=== PATIENT | female | born 1985 | race Caucasian/White ===

== ENCOUNTER 2020-07-04 12:58 | Inpatient (IN) | payer OTHER ==
--- NOTE | 2020-07-04 13:11 | BHS.RME ---
Substance Use & Tx History - Substance Use History Alcohol Substance amount: 1 gallon vodka Frequency of use: Daily Substance route: Oral Date of Last Use: 07/04/20 (30 mins ago, started age 9) Heroin Substance amount: 1 bags Frequency of use: Less than 3 times per week Substance route: Injection (ex: intravenous or skin popping) Date of Last Use: 07/03/20 (started age 13) Xanax Substance amount: 2mg - 5-6 tabs Frequency of use: Daily Substance route: Oral Date of Last Use: 07/03/20 Nicotine Substance amount: 5 ciggs Frequency of use: Daily Substance route: Smoking Date of Last Use: 07/04/20 Physical/Psych/Mental Status - Behavior General Behavior: Decreased activity Eye Contact: Normal - Cooperativeness Cooperativeness: Cooperative - Thinking Thought Processes: Tight, Logical, Goal Directed - Physical Health Problems Is patient presently having any pain?: No Does patient presently have any injuries (include location): No Does patient currently have a fever: No Is patient : No CIWA Nausea/Vomitin-Mild Nausea/No Vomiting Muscle Tremors: 2 Anxiety: 2 Agitation: 2 Paroxysmal Sweats: 2 Orientation: 0-Oriented Tacttile Disturbances: 0-None Auditory Disturbances: 0-None Visual Disturbances: 0-None Headache: 1-Very Mild (not yet in withdrawals due to alcohol use prior and benzodiazepine use) CIWA-Ar Total Score: 10
[2020-07-04 13:35] VITALS: BMI 24.4
--- NOTE | 2020-07-04 14:11 | HP ---
CIWA Score Nausea/Vomitin-Mild Nausea/No Vomiting Muscle Tremors: 2 Anxiety: 2 Agitation: 2 Paroxysmal Sweats: 2 Orientation: 0-Oriented Tacttile Disturbances: 0-None Auditory Disturbances: 0-None Visual Disturbances: 0-None Headache: 1-Very Mild (not yet in withdrawals due to alcohol use prior and benzodiazepine use) CIWA-Ar Total Score: 10 - Admission Criteria OASAS Guidelines: Admission for Medically Managed Detox: Requires at least one of the followin. CIWA greater than 12 2. Seizures within the past 24 hours 3. Delirium tremens within the past 24 hours 4. Hallucinations within the past 24 hours 5. Acute intervention needed for co occurring medical disorder 6. Acute intervention needed for co occurring psychiatric disorder 7. Severe withdrawal that cannot be handled at a lower level of care (continued vomiting, continued diarrhea, abnormal vital signs) requiring intravenous medication and/or fluids 8. Admitting History and Physical - Admission Chief Complaint: Ms. Aguirre is a 35 yo woman who presents to [facility] requesting admission for alcohol and benzodiazepine use. History of Present Illness: Ms. Aguirre is a 35 yo woman who presents to [facility] requesting admission for alcohol and benzodiazepine use. She was last here and completed detox in 2014. PMH: HTN, Asthma PSH: splenectomy Psych: anxiety, PTSD, suicide attempt 3 years ago: cut wrist SOC: lives in the [place] Substance Use History Alcohol Substance amount: 1 gallon vodka Frequency of use: Daily Substance route: Oral Date of Last Use: 07/04/20 (30 mins ago, started age 9) First use age 9 y No alcohol withdrawal seizures? 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 yesterday, unclear Nicotine Substance amount: 5 ciggs Frequency of use: Daily Substance route: Smoking Date of Last Use: 07/04/20 Began age 11y Crack: last use yesterday, began use age 16y, 0-15 bags CAnnabis: few hits daily, last use today, started age 14y History Source: Patient Limitations to Obtaining History: No Limitations - Past Medical History ...LMP: 06/22/15 - Smoking History Smoking history: Current every day smoker Have you smoked in the past 12 months: Yes Aproximately how many cigarettes per day: 10 - Alcohol/Substance Use Hx Alcohol Use: Yes Admission ROS S - HPI Allergies/Adverse Reactions: Allergies Allergy/AdvReac Type Severity Reaction Status Date / Time chlorpromazine HCl Allergy Severe MUSCLE Verified 07/04/20 13:59 [From Thorazine] STIFFNESS haloperidol Allergy Severe MUSCLE Verified 07/04/20 13:59 STIFFNESS prochlorperazine edisylate Allergy Severe LOCK JAW Verified 07/04/20 13:59 [From Compazine] prochlorperazine maleate Allergy Severe LOCK JAW Verified 07/04/20 13:59 [From Compazine] trazodone Allergy Severe MUSCLE Verified 07/04/20 13:59 STIFFNESS Exam Limitations: No Limitations - Ebola screening Have you traveled outside of the country in the last 21 days: No Have you been sick,other than usual withdrawal symptoms: No Do you have a fever: No - Review of Systems Constitutional: No Symptoms Reported EENT: reports: Blurred Vision (has glasses with her, uses for distance) Respiratory: reports: No Symptoms reported Cardiac: reports: No Symptoms Reported GI: reports: Nausea, Vomiting (past few days, not today) : reports: Burning Musculoskeletal: reports: Back Pain Integumentary: reports: Other (swelling left dorsal hand) Endocrine: reports: No Symptoms Reported Hematology: reports: No Symptoms Reported Psychiatric: reports: Anxious Patient History - Patient Medical History Hx Anemia: No Hx Asthma: No Hx Chronic Obstructive Pulmonary Disease (COPD): No Hx Cancer: No Hx Cardiac Disorders: No Hx Congestive Heart Failure: No Hx Hypertension: No Hx Hypercholesterolemia: No Hx Pacemaker: No HX Cerebrovascular Accident: No Hx Seizures: Yes (4months ago) Hx Dementia: No Hx Diabetes: No Hx Gastrointestinal Disorders: No Hx Liver Disease: No Hx Genitourinary Disorders: No Hx Sexually Transmitted Disorders: No Hx Renal Disease (ESRD): No Hx Thyroid Disease: No Hx Human Immunodeficiency Virus (HIV): No (NEGATIVE 2 MONTHS AGO) Hx Hepatitis C: Yes Hx Depression: Yes Hx Suicide Attempt: No Hx Bipolar Disorder: Yes Hx Schizophrenia: No - Patient Surgical History Past Surgical History: Yes Hx Neurologic Surgery: No Hx Cataract Extraction: No Hx Cardiac Surgery: No Hx Lung Surgery: No Hx Breast Surgery: No Hx Breast Biopsy: No Hx Abdominal Surgery: No Hx Appendectomy: No Hx Cholecystectomy: No Hx Genitourinary Surgery: No Hx Section: Yes (11/03/14) Hx Orthopedic Surgery: No Anesthesia Reaction: No - PPD History Date: 12/10/14 Results: 0mm - Reproductive History Last Menstrual Period: 06/22/15 - Smoking Cessation Smoking history: Current every day smoker Have you smoked in the past 12 months: Yes Aproximately how many cigarettes per day: 5 Cigars Per Day: 0 Hx Chewing Tobacco Use: No Initiated information on smoking cessation: Yes 'Breaking Loose' booklet given: 07/04/20 Admission Physical Exam BHS - Vital Signs Vital Signs: Vital Signs - 24 hr 07/04/20 13:34 Temperature 97.3 F L Pulse Rate 89 Respiratory 17 Rate Blood Pressure 121/77 - Physical General Appearance: Yes: No Apparent Distress, Nourished, Anxious HEENTM: Yes: EOMI, Hearing grossly Normal, Normocephalic, Normal Voice Respiratory: Yes: Lungs Clear, No Respiratory Distress, No Accessory Muscle Use Neck: Yes: Within Normal Limits, Supple Breast: Yes: Breast Exam Deferred Cardiology: Yes: Regular Rhythm, Regular Rate Abdominal: Yes: Normal Bowel Sounds, Non Tender, Flat, Soft Genitourinary: Yes: Other (no vaginal discharge) Back: Yes: Normal Inspection Musculoskeletal: Yes: full range of Motion Extremities: Yes: Normal Inspection, Non-Tender Neurological: Yes: Normal Response Integumentary: Yes: Track Coates (multiple sites, feet, hand, right wrist, neck bilateral) - Diagnostic (1) Hepatitis C carrier Current Visit: No Status: Chronic Comment: 1. per pt, treated (2) Anxiety disorder Current Visit: Yes Status: Acute Qualifiers: Anxiety disorder type: generalized anxiety disorder Qualified Code(s): F41.1 - Generalized anxiety disorder Comment: 1. Psychiatry consult (3) Opioid dependence on agonist therapy Current Visit: No Status: Acute Comment: 1. Methadone 120 mg dialy, [facility], pending verification, pt states medicated today (4) Alcohol dependence with uncomplicated withdrawal Current Visit: No Status: Chronic Comment: 1. Admit to detox 2. Valium protocol as LFTs were elevated last admission 3. Routine labs 4. comfort medication (5) Nicotine dependence, uncomplicated Current Visit: No Status: Chronic Qualifiers: Nicotine product type: cigarettes Qualified Code(s): F17.210 - Nicotine dependence, cigarettes, uncomplicated Comment: 1. Nicotine replacement therapy (6) Sedative, hypnotic, or anxiolytic withdrawal Current Visit: Yes Status: Acute (7) Crack cocaine use Current Visit: No Status: Chronic (8) Marijuana dependence Current Visit: No Status: Acute Cleared for Admission S - Detox or Rehab [facility] Level of Care: Medically Managed Detox Regimen/Protocol: Valium Breathalyzer - Breathalyzer Breathalyzer: 0.130 Urine Drug Screen - Test Device Lot number: [id number] Expiration date: 01/17/22 - Control Is test valid?: Yes - Results Drug screen NEGATIVE: No Urine drug screen results: THC-Marijuana, PAPITO-Cocaine, FEN-Fentanyl, MOP- Opiates, MTD-Methadone, BZO-Benzodiazepines Inpatient Rehab Admission - Rehab Decision to Admit Inpatient rehab admission?: No
[2020-07-04] MEDS ORDERED: MAGNESIUM HYDROX 2400MG/30ML ORAL SUSPENSION 30 ML CUP PO PRN (14:23)
[2020-07-04] MEDS ORDERED: MAGNESIUM CITRATE 300 ML BOTTLE PO PRN (14:23)
[2020-07-04] MEDS ORDERED: MENTHOL/PHENOL 1 EACH UD MM PRN (14:23)
[2020-07-04] MEDS ORDERED: BISMUTH SUBSALICYLATE 262 MG/15 ML BTL PO PRN (14:23)
[2020-07-04] MEDS ORDERED: ALBUTEROL SO4 HFA INHALER IH PRN (14:23)
[2020-07-04] MEDS ORDERED: MAG HYDROX/AL HYDROX/SIMETH 30 ML UNIT-DOSE CUP PO PRN (14:23)
[2020-07-04] MEDS ORDERED: ACETAMINOPHEN 325 MG TABLET (FP) PO PRN ×2 (14:23)
[2020-07-04] MEDS ORDERED: IBUPROFEN 400 MG TABLET (FP) PO PRN (14:23)
[2020-07-04 18:21] LABS: HEMATOCRIT 37.2 % (32.4-45.2); HEMOGLOBIN 12.3 GM/dL (10.7-15.3); MCH 33.1 pg (25.7-33.7); MCHC 33.1 g/dl (32.0-36.0); MEAN CELL VOLUME 100.2 fl (80-96); MEAN PLT VOLUME 9.4 fl (7.5-11.1); PLATELET COUNT 389 K/MM3 (134-434); RBC 3.72 M/mm3 (3.60-5.2); RDW 14.8 % (11.6-15.6); WHITE BLOOD COUNT 6.7 K/mm3 (4.0-10.0)
[2020-07-04 18:31] LABS: BILIRUBIN,TOTAL 0.2 mg/dL (0.2-1); BLOOD UREA NITROGEN 11.1 mg/dL (7-18); CALCIUM 8.4 mg/dL (8.5-10.1); CREATININE 0.7 mg/dL (0.55-1.3); POTASSIUM 4.1 mmol/L (3.5-5.1); TOT PROT 7.1 g/dl (6.4-8.2)
[2020-07-04] MEDS: diazePAM 5 MG TABLET PO SCH ×2 (18:34→23:31)
[2020-07-04] MEDS: hydrOXYzine PAMOATE 25 MG CAPSULE (FP) PO SCH ×2 (18:34→23:32)
[2020-07-04] MEDS: ONDANSETRON *ODT* 4 MG TABLET SL PRN (18:37)
[2020-07-04] MEDS: MELATONIN 5 MG TABLETS PO SCH (23:32)
[2020-07-04] MEDS: THIAMINE HCL 100 MG TABLET (FP) PO SCH (23:32)
[2020-07-05] MEDS: hydrOXYzine PAMOATE 25 MG CAPSULE (FP) PO SCH (05:16)
[2020-07-05] MEDS: diazePAM 5 MG TABLET PO SCH ×4 (05:16→22:18)
[2020-07-05] MEDS: diazePAM 5 MG TABLET PO PRN ×2 (07:23→13:27)
[2020-07-05] MEDS: ONDANSETRON *ODT* 4 MG TABLET SL PRN (07:23)
[2020-07-05] MEDS ORDERED: METHADONE HCL 40 MG DISPERSABLE TABLET PO ONE (08:48)
[2020-07-05] MEDS ORDERED: hydrOXYzine PAMOATE 25 MG CAPSULE (FP) PO PRN (09:35)
[2020-07-05] MEDS: NICOTINE 7 MG/24 HOURS TOPICAL PATCH TD SCH (09:42)
[2020-07-05] MEDS: PRENATAL VITAMINS W/ FOLIC ACID TABLET (FP) PO SCH (10:39)
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
[2020-07-05] MEDS: PROMETHAZINE HCL 25 MG TABLET PO PRN ×3 (11:30→22:19)
--- NOTE | 2020-07-05 14:06 | EKG ---
Test Reason : Blood Pressure : / mmHG Vent. Rate : 083 BPM Atrial Rate : 083 BPM P-R Int : 152 ms QRS Dur : 092 ms QT Int : 398 ms P-R-T Axes : 067 064 047 degrees QTc Int : 467 ms NORMAL SINUS RHYTHM NORMAL ECG NO PREVIOUS ECGS AVAILABLE Confirmed by SARAH PADILLA MD ([id number]) on 07/05/2020 2:05:46 PM Referred By: Confirmed By:SARAH PADILLA MD
--- NOTE | 2020-07-05 14:42 | PN ---
S CIWA - CIWA Score Nausea/Vomitin-Mild Nausea/No Vomiting Muscle Tremors: 3 Anxiety: 2 Agitation: 3 Paroxysmal Sweats: 3 Orientation: 0-Oriented Tacttile Disturbances: 0-None Auditory Disturbances: 0-None Visual Disturbances: 0-None Headache: 0-None Present CIWA-Ar Total Score: 12 BHS Progress Note (SOAP) Subjective: shakes sweats restless nausea body aches interrupted sleep Objective: 07/05/20 14:41 Vital Signs Temperature 96.4 F L 07/05/20 13:04 Pulse Rate 65 07/05/20 13:04 Respiratory Rate 18 07/05/20 13:04 Blood Pressure 126/78 07/05/20 13:04 O2 Sat by Pulse Oximetry (%) 96 07/05/20 13:04 Laboratory Tests 07/04/20 07/04/20 07/04/20 13:50 13:50 13:50 WBC 6.7 RBC 3.72 Hgb 12.3 Hct 37.2 D MCV 100.2 H MCH 33.1 D MCHC 33.1 RDW 14.8 Plt Count 389 D MPV 9.4 D Sodium 141 Potassium 4.1 Chloride 107 Carbon Dioxide 29 Anion Gap 5 L BUN 11.1 Creatinine 0.7 Est GFR (CKD-EPI)AfAm 131.02 Est GFR (CKD-EPI)NonAf 113.04 Random Glucose 103 Calcium 8.4 L Total Bilirubin 0.2 AST 70 H ALT 55 Alkaline Phosphatase 111 Total Protein 7.1 Albumin 3.0 L Syphilis Serology Reactive A* RPR Titer 07/04/20 13:50 WBC RBC Hgb Hct MCV MCH MCHC RDW Plt Count MPV Sodium Potassium Chloride Carbon Dioxide Anion Gap BUN Creatinine Est GFR (CKD-EPI)AfAm Est GFR (CKD-EPI)NonAf Random Glucose Calcium Total Bilirubin AST ALT Alkaline Phosphatase Total Protein Albumin Syphilis Serology RPR Titer Reactive 1:1 H D labs noted aaox3 ambulating no acute distress Assessment: 07/05/20 14:41 withdrawals Plan: continue detox increase fluids anti-emetic phenegran tab 25mg ordered.
[2020-07-05] MEDS: MELATONIN 5 MG TABLETS PO SCH (22:18)
[2020-07-05] MEDS: QUEtiapine FUMARATE 100 MG TABLET (FP) PO SCH (22:18)
[2020-07-05] MEDS: THIAMINE HCL 100 MG TABLET (FP) PO SCH (22:18)
[2020-07-05] MEDS: NICOTINE POLACRILEX 2 MG GUM BUC PRN (22:20)
[2020-07-06] MEDS: diazePAM 5 MG TABLET PO PRN ×3 (01:21→17:08)
[2020-07-06] MEDS: METHADONE HCL 40 MG DISPERSABLE TABLET PO SCH (05:42)
[2020-07-06] MEDS: diazePAM 5 MG TABLET PO SCH ×3 (05:44→21:55)
[2020-07-06] MEDS: PROMETHAZINE HCL 25 MG TABLET PO PRN ×4 (05:44→21:57)
[2020-07-06] MEDS: NICOTINE POLACRILEX 2 MG GUM BUC PRN ×3 (08:07→21:58)
[2020-07-06] MEDS: PRENATAL VITAMINS W/ FOLIC ACID TABLET (FP) PO SCH (10:13)
[2020-07-06] MEDS: PANTOPRAZOLE 40 MG TABLET PO SCH (10:13)
[2020-07-06] MEDS: NICOTINE 7 MG/24 HOURS TOPICAL PATCH TD SCH (10:13)
--- NOTE | 2020-07-06 15:15 | PN ---
[facility] CIWA - CIWA Score Nausea/Vomitin-Mild Nausea/No Vomiting Muscle Tremors: 3 Anxiety: 2 Agitation: 2 Paroxysmal Sweats: 2 Orientation: 0-Oriented Tacttile Disturbances: 0-None Auditory Disturbances: 0-None Visual Disturbances: 0-None Headache: 0-None Present CIWA-Ar Total Score: 10 S Progress Note (SOAP) Subjective: acid reflux sweats agitation interrupted sleep Objective: 07/06/20 15:13 Vital Signs Temperature 98.2 F 07/06/20 12:45 Pulse Rate 81 07/06/20 12:45 Respiratory Rate 18 07/06/20 12:45 Blood Pressure 123/56 L 07/06/20 12:45 O2 Sat by Pulse Oximetry (%) 95 07/06/20 12:45 Laboratory Tests 07/04/20 07/04/20 07/04/20 13:50 13:50 13:50 WBC 6.7 RBC 3.72 Hgb 12.3 Hct 37.2 D MCV 100.2 H MCH 33.1 D MCHC 33.1 RDW 14.8 Plt Count 389 D MPV 9.4 D Sodium 141 Potassium 4.1 Chloride 107 Carbon Dioxide 29 Anion Gap 5 L BUN 11.1 Creatinine 0.7 Est GFR (CKD-EPI)AfAm 131.02 Est GFR (CKD-EPI)NonAf 113.04 Random Glucose 103 Calcium 8.4 L Total Bilirubin 0.2 AST 70 H ALT 55 Alkaline Phosphatase 111 Total Protein 7.1 Albumin 3.0 L Syphilis Serology Reactive A* RPR Titer COVID-19 (DARELL) 07/04/20 07/04/20 13:50 13:50 WBC RBC Hgb Hct MCV MCH MCHC RDW Plt Count MPV Sodium Potassium Chloride Carbon Dioxide Anion Gap BUN Creatinine Est GFR (CKD-EPI)AfAm Est GFR (CKD-EPI)NonAf Random Glucose Calcium Total Bilirubin AST ALT Alkaline Phosphatase Total Protein Albumin Syphilis Serology RPR Titer Reactive 1:1 H D COVID-19 (DARELL) Not detected labs noted aaox3 ambulating no acute distress Assessment: 07/06/20 15:14 withdrawals Plan: continue detox protonix 40mg ordered increase fluids
[2020-07-06] MEDS: QUEtiapine FUMARATE 100 MG TABLET (FP) PO SCH (21:55)
[2020-07-06] MEDS: MELATONIN 5 MG TABLETS PO SCH (21:55)
[2020-07-06] MEDS: THIAMINE HCL 100 MG TABLET (FP) PO SCH (21:55)
[2020-07-07] MEDS: diazePAM 5 MG TABLET PO PRN ×2 (02:51→10:08)
[2020-07-07] MEDS: diazePAM 5 MG TABLET PO SCH ×2 (06:47→19:28)
[2020-07-07] MEDS: METHADONE HCL 40 MG DISPERSABLE TABLET PO SCH (06:47)
[2020-07-07] MEDS: PROMETHAZINE HCL 25 MG TABLET PO PRN ×3 (07:57→16:44)
[2020-07-07] MEDS: NICOTINE POLACRILEX 2 MG GUM BUC PRN (07:59)
[2020-07-07] MEDS ORDERED: NICOTINE POLACRILEX 4 MG GUM BUC PRN (09:53)
[2020-07-07] MEDS ORDERED: NICOTINE 21 MG/24 HOURS TOPICAL PATCH TD SCH (10:00)
[2020-07-07] MEDS: PANTOPRAZOLE 40 MG TABLET PO SCH (10:08)
[2020-07-07] MEDS: METHOCARBAMOL 500 MG TABLET PO PRN ×2 (10:08→16:45)
[2020-07-07] MEDS: PRENATAL VITAMINS W/ FOLIC ACID TABLET (FP) PO SCH (10:09)
[2020-07-07] MEDS: hydrOXYzine PAMOATE 50 MG CAPSULE (FP) PO PRN ×3 (10:11→22:51)
--- NOTE | 2020-07-07 18:00 | PN ---
[facility] CIWA - CIWA Score Nausea/Vomitin-No Nausea/No Vomiting Muscle Tremors: None Anxiety: 4-Mod. Anxious/Guarded Agitation: 4-Moderately Restless Paroxysmal Sweats: 2 Orientation: 0-Oriented Tacttile Disturbances: 2-Mild Itch/Numbness/Burn Auditory Disturbances: 0-None Visual Disturbances: 0-None Headache: 0-None Present CIWA-Ar Total Score: 12 S Progress Note (SOAP) Subjective: Anxious, Restless, Sweating, Interrupted Sleep. Objective: Patient A & O X 3, Observed Ambulating on Detox Unit Unassisted. In No Acute Distress. 07/07/20 17:56 Vital Signs Temperature 97.5 F L 07/07/20 12:56 Pulse Rate 71 07/07/20 12:56 Respiratory Rate 19 07/07/20 12:56 Blood Pressure 124/68 07/07/20 12:56 O2 Sat by Pulse Oximetry (%) 100 07/07/20 12:56 Laboratory Tests 07/04/20 07/04/20 07/04/20 13:50 13:50 13:50 WBC 6.7 RBC 3.72 Hgb 12.3 Hct 37.2 D MCV 100.2 H MCH 33.1 D MCHC 33.1 RDW 14.8 Plt Count 389 D MPV 9.4 D Sodium 141 Potassium 4.1 Chloride 107 Carbon Dioxide 29 Anion Gap 5 L BUN 11.1 Creatinine 0.7 Est GFR (CKD-EPI)AfAm 131.02 Est GFR (CKD-EPI)NonAf 113.04 Random Glucose 103 Calcium 8.4 L Total Bilirubin 0.2 AST 70 H ALT 55 Alkaline Phosphatase 111 Total Protein 7.1 Albumin 3.0 L Syphilis Serology Reactive A* RPR Titer COVID-19 (DARELL) 07/04/20 07/04/20 13:50 13:50 WBC RBC Hgb Hct MCV MCH MCHC RDW Plt Count MPV Sodium Potassium Chloride Carbon Dioxide Anion Gap BUN Creatinine Est GFR (CKD-EPI)AfAm Est GFR (CKD-EPI)NonAf Random Glucose Calcium Total Bilirubin AST ALT Alkaline Phosphatase Total Protein Albumin Syphilis Serology RPR Titer Reactive 1:1 H D COVID-19 (DARELL) Not detected Lab Results Noted. Detox Admission RPR Result noted: Reactive A; Reactive 1:1. Patient reports that he completed treatment for Syphilis in the past. 07/07/20 17:58 Assessment: 07/07/20 17:57 WITHDRAWAL SYMPTOMS. ELEVATED AST LEVEL. REACTIVE RPR. 07/07/20 17:58 Plan: Continue Detox. Increase Daily Oral Water Intake. Patient scheduled for D/C from detox unit tomorrow pending pre-discharge medical evaluation by covering medical provider.
[2020-07-07] MEDS: QUEtiapine FUMARATE 100 MG TABLET (FP) PO SCH (22:51)
[2020-07-07] MEDS: MELATONIN 5 MG TABLETS PO SCH (22:52)
[2020-07-07] MEDS: THIAMINE HCL 100 MG TABLET (FP) PO SCH (22:52)
[2020-07-08] MEDS ORDERED: diazePAM 5 MG TABLET PO ONE (06:00)
[2020-07-08] MEDS: METHADONE HCL 40 MG DISPERSABLE TABLET PO SCH (06:32)
[2020-07-08] MEDS: PROMETHAZINE HCL 25 MG TABLET PO PRN (06:35)
[2020-07-08 08:27] VITALS: BP 115/78; PULSE 105; TEMP 98
--- NOTE | 2020-07-08 09:59 | DS ---
[facility] Detox Discharge Summary Admission Date: 07/04/20 Discharge Date: 07/08/20 - History Present History: Alcohol Dependence, Cannabis Dependence, Cocaine Dependence, Sedative Dependence, MMTP Additional Comments: Alert and oriented x3, in no acute respiratory distress. Full ROM, ambulatory in the unit without assistance. Skin warm to touch. Detox protocol completed without any complications, stable for discharge this morning. Pertinent Past History: History of asthma, HTN, xanax, crack, cannabis, heroin and nicotine use disorder. - Physical Exam Results Vital Signs: Vital Signs Temperature 98 F 07/08/20 06:18 Pulse Rate 105 H 07/08/20 06:18 Respiratory Rate 20 07/08/20 06:18 Blood Pressure 115/78 07/08/20 06:18 O2 Sat by Pulse Oximetry (%) 96 07/08/20 06:18 Vital Signs 07/08/20 06:18 Temperature 98 F Pulse Rate 105 H Respiratory 20 Rate Blood Pressure 115/78 O2 Sat by Pulse 96 Oximetry (%) Laboratory Last Values WBC 6.7 K/mm3 (4.0-10.0) 07/04/20 13:50 RBC 3.72 M/mm3 (3.60-5.2) 07/04/20 13:50 Hgb 12.3 GM/dL (10.7-15.3) 07/04/20 13:50 Hct 37.2 % (32.4-45.2) D 07/04/20 13:50 MCV 100.2 fl (80-96) H 07/04/20 13:50 MCH 33.1 pg (25.7-33.7) D 07/04/20 13:50 MCHC 33.1 g/dl (32.0-36.0) 07/04/20 13:50 RDW 14.8 % (11.6-15.6) 07/04/20 13:50 Plt Count 389 K/MM3 (134-434) D 07/04/20 13:50 MPV 9.4 fl (7.5-11.1) D 07/04/20 13:50 Sodium 141 mmol/L (136-145) 07/04/20 13:50 Potassium 4.1 mmol/L (3.5-5.1) 07/04/20 13:50 Chloride 107 mmol/L (98-107) 07/04/20 13:50 Carbon Dioxide 29 mmol/L (21-32) 07/04/20 13:50 Anion Gap 5 MMOL/L (8-16) L 07/04/20 13:50 BUN 11.1 mg/dL (7-18) 07/04/20 13:50 Creatinine 0.7 mg/dL (0.55-1.3) 07/04/20 13:50 Est GFR (CKD-EPI)AfAm 131.02 07/04/20 13:50 Est GFR (CKD-EPI)NonAf 113.04 07/04/20 13:50 Random Glucose 103 mg/dL (74-106) 07/04/20 13:50 Calcium 8.4 mg/dL (8.5-10.1) L 07/04/20 13:50 Total Bilirubin 0.2 mg/dL (0.2-1) 07/04/20 13:50 AST 70 U/L (15-37) H 07/04/20 13:50 ALT 55 U/L (13-61) 07/04/20 13:50 Alkaline Phosphatase 111 U/L (45-117) 07/04/20 13:50 Total Protein 7.1 g/dl (6.4-8.2) 07/04/20 13:50 Albumin 3.0 g/dl (3.4-5.0) L 07/04/20 13:50 Syphilis Serology Reactive (NONREACTIVE) A* 07/04/20 13:50 RPR Titer Reactive 1:1 (NONREACTIVE) H D 07/04/20 13:50 COVID-19 (DARELL) Not detected (Not Detected) 07/04/20 13:50 Labs noted. Pertinent Admission Physical Exam Findings: Withdrawal symptoms. - Treatment Hospital Course: Detox Protocol Followed, Detoxed Safely, Responded well, Discharged Condition Good - Medication Discharge Medications: Ambulatory Orders Albuterol Sulfate Inhaler - [Ventolin Hfa Inhaler -] 2 inh PO Q4H PRN 07/04/20 Methadone [Dolophine -] 120 mg PO DAILY 07/04/20 - Diagnosis (1) Alcohol dependence Status: Active (2) Sedative dependence Status: Acute (3) Alcohol dependence with uncomplicated withdrawal Status: Chronic (4) Marijuana dependence Status: Chronic (5) Methadone maintenance therapy patient Status: Chronic (6) Positive RPR test Status: Acute (7) Bronchial asthma Status: Chronic (8) Crack cocaine use Status: Chronic (9) HTN (hypertension) Status: Chronic - AMA Did Patient Leave Against Medical Advice: No
== END 2020-07-08 09:10 | disposition home or self-care (01) | DRG 773 ==
LOC: YASAS 12:58 → Y6N 13:51
PROVIDERS: ADMIT Allergy & Immunology; ATTEND Allergy & Immunology
PROC: HZ2ZZZZ Detoxification Services for Substance Abuse Treatment (ICD-10-PCS; principal; 2020-07-04)
DX: F10.230 Alcohol dependence with withdrawal, uncomplicated (principal); F13.230 Sedative, hypnotic or anxiolytic dependence with withdrawal, uncomplicated; F11.20 Opioid dependence, uncomplicated; F14.20 Cocaine dependence, uncomplicated; F12.20 Cannabis dependence, uncomplicated; F17.210 Nicotine dependence, cigarettes, uncomplicated; F31.9 Bipolar disorder, unspecified; F19.280 Other psychoactive substance dependence with psychoactive substance-induced anxiety disorder; F19.282 Other psychoactive substance dependence with psychoactive substance-induced sleep disorder; F19.24 Other psychoactive substance dependence with psychoactive substance-induced mood disorder; F43.10 Post-traumatic stress disorder, unspecified; F41.1 Generalized anxiety disorder; A53.0 Latent syphilis, unspecified as early or late; I10 Essential (primary) hypertension; J45.909 Unspecified asthma, uncomplicated; B18.2 Chronic viral hepatitis C; R74.0 Nonspecific elevation of levels of transaminase and lactic acid dehydrogenase [LDH]; Z62.810 Personal history of physical and sexual abuse in childhood; Z86.69 Personal history of other diseases of the nervous system and sense organs; Z90.81 Acquired absence of spleen; Z91.410 Personal history of adult physical and sexual abuse; Z91.5 Personal history of self-harm; Z88.8 Allergy status to other drugs, medicaments and biological substances
CPT/HCPCS: 36415; 80053; 85027; 86593; 86780; 93005; 93010; Q0162; U0003

== ENCOUNTER 2021-04-05 16:58 | Inpatient (IN) | payer OTHER ==
[2021-04-05 18:20] VITALS: BMI 30.9
[2021-04-05] MEDS ORDERED: MAG HYDROX/AL HYDROX/SIMETH 30 ML UNIT-DOSE CUP PO PRN (22:02)
[2021-04-05] MEDS ORDERED: guaiFENesin 200 MG/10 ML 10 ML UNIT-DOSE CUPS PO PRN (22:02)
[2021-04-05] MEDS ORDERED: MAGNESIUM CITRATE 300 ML BOTTLE PO PRN (22:02)
[2021-04-05] MEDS ORDERED: NALOXONE HCL 0.4 MG/ML VIAL IM PRN (22:02)
[2021-04-05] MEDS ORDERED: MENTHOL/PHENOL 1 EACH UD MM PRN (22:02)
[2021-04-05] MEDS ORDERED: P-EPHED 60MG/TRIPROLIDI 2.5MG TABLET PO PRN (22:02)
[2021-04-05] MEDS ORDERED: IBUPROFEN 400 MG TABLET (FP) PO PRN (22:02)
[2021-04-05] MEDS ORDERED: NALOXONE (NARCAN) HCL 4 MG/0.1 ML SPRAY NS PRN (22:02)
[2021-04-05] MEDS ORDERED: MAGNESIUM HYDROX 2400MG/30ML ORAL SUSPENSION 30 ML CUP PO PRN (22:02)
[2021-04-05] MEDS ORDERED: ACETAMINOPHEN 325 MG TABLET (FP) PO PRN ×2 (22:02)
[2021-04-05] MEDS ORDERED: NICOTINE POLACRILEX 2 MG GUM BUC PRN (22:02)
[2021-04-05] MEDS ORDERED: DICYCLOMINE HCL 10 MG CAPSULE PO PRN (22:02)
[2021-04-05] MEDS ORDERED: BISMUTH SUBSALICYLATE 524 MG/30 ML PO PRN (22:02)
[2021-04-05] MEDS: diazePAM 5 MG TABLET PO PRN (22:15)
[2021-04-05] MEDS ORDERED: ALBUTEROL SO4 HFA INHALER IH PRN (23:35)
[2021-04-05] MEDS: METHOCARBAMOL 500 MG TABLET PO PRN (23:52)
[2021-04-05] MEDS: diazePAM 5 MG TABLET PO SCH ×2 (23:52→23:55)
[2021-04-06] MEDS: diazePAM 5 MG TABLET PO SCH ×4 (04:10→22:10)
[2021-04-06] MEDS: diazePAM 5 MG TABLET PO PRN ×3 (09:12→20:17)
[2021-04-06] MEDS: NICOTINE 21 MG/24 HOURS TOPICAL PATCH TD SCH (10:49)
[2021-04-06] MEDS: PRENATAL VITAMINS W/ FOLIC ACID TABLET (FP) PO SCH (10:49)
[2021-04-06] MEDS: PANTOPRAZOLE 20 MG TABLET PO SCH (10:49)
[2021-04-06] MEDS: METHADONE HCL 40 MG DISPERSABLE TABLET PO SCH (17:16)
[2021-04-06] MEDS: METHOCARBAMOL 500 MG TABLET PO PRN (22:10)
[2021-04-06] MEDS: THIAMINE HCL 100 MG TABLET (FP) PO SCH (22:10)
[2021-04-06] MEDS: MELATONIN 5 MG TABLETS PO SCH (22:10)
[2021-04-06] MEDS: ONDANSETRON *ODT* 4 MG TABLET SL PRN (22:12)
[2021-04-07] MEDS: diazePAM 5 MG TABLET PO PRN ×4 (02:16→20:37)
[2021-04-07] MEDS: ONDANSETRON *ODT* 4 MG TABLET SL PRN ×2 (06:07→10:24)
[2021-04-07] MEDS: METHADONE HCL 40 MG DISPERSABLE TABLET PO SCH (06:08)
[2021-04-07] MEDS: diazePAM 5 MG TABLET PO SCH ×3 (06:08→22:23)
[2021-04-07] MEDS: METHOCARBAMOL 500 MG TABLET PO PRN ×3 (08:41→22:22)
[2021-04-07] MEDS: PRENATAL VITAMINS W/ FOLIC ACID TABLET (FP) PO SCH (10:22)
[2021-04-07] MEDS: PANTOPRAZOLE 20 MG TABLET PO SCH (10:22)
[2021-04-07] MEDS: NICOTINE 21 MG/24 HOURS TOPICAL PATCH TD SCH (10:22)
[2021-04-07] MEDS: MELATONIN 5 MG TABLETS PO SCH (22:22)
[2021-04-07] MEDS: THIAMINE HCL 100 MG TABLET (FP) PO SCH (22:23)
[2021-04-08] MEDS: METHADONE HCL 40 MG DISPERSABLE TABLET PO SCH (05:32)
[2021-04-08] MEDS: METHOCARBAMOL 500 MG TABLET PO PRN (05:33)
[2021-04-08] MEDS ORDERED: diazePAM 5 MG TABLET PO SCH (06:00)
[2021-04-08] MEDS: PRENATAL VITAMINS W/ FOLIC ACID TABLET (FP) PO SCH (09:20)
[2021-04-08] MEDS: PANTOPRAZOLE 20 MG TABLET PO SCH (09:20)
[2021-04-08] MEDS: diazePAM 5 MG TABLET PO PRN (09:20)
[2021-04-08] MEDS: NICOTINE 21 MG/24 HOURS TOPICAL PATCH TD SCH (09:36)
[2021-04-08] MEDS ORDERED: METHADONE HCL 10 MG TABLET PO ONE (10:00)
[2021-04-08] MEDS ORDERED: diazePAM 5 MG TABLET PO PRN (10:13)
[2021-04-08 12:59] VITALS: BP 127/87; PULSE 92; TEMP 97.7
[2021-04-09] MEDS ORDERED: METHADONE HCL 40 MG DISPERSABLE TABLET PO SCH (06:00)
[2021-04-09] MEDS ORDERED: METHADONE 40 MG, METHADONE 10 MG PO SCH (06:00)
[2021-04-09] MEDS ORDERED: diazePAM 5 MG TABLET PO ONE (06:00)
== END 2021-04-08 16:00 | disposition home or self-care (01) | DRG 773 ==
LOC: YASAS 16:58 → Y6N 23:01
PROVIDERS: ADMIT Allergy & Immunology; ATTEND Allergy & Immunology
PROC: HZ2ZZZZ Detoxification Services for Substance Abuse Treatment (ICD-10-PCS; principal; 2021-04-05)
DX: F10.230 Alcohol dependence with withdrawal, uncomplicated (principal); F13.230 Sedative, hypnotic or anxiolytic dependence with withdrawal, uncomplicated; F11.20 Opioid dependence, uncomplicated; F14.20 Cocaine dependence, uncomplicated; F12.20 Cannabis dependence, uncomplicated; F17.210 Nicotine dependence, cigarettes, uncomplicated; F19.282 Other psychoactive substance dependence with psychoactive substance-induced sleep disorder; F19.280 Other psychoactive substance dependence with psychoactive substance-induced anxiety disorder; F19.24 Other psychoactive substance dependence with psychoactive substance-induced mood disorder; F41.1 Generalized anxiety disorder; I10 Essential (primary) hypertension; J45.909 Unspecified asthma, uncomplicated; K21.9 Gastro-esophageal reflux disease without esophagitis; B19.10 Unspecified viral hepatitis B without hepatic coma; G40.909 Epilepsy, unspecified, not intractable, without status epilepticus; R76.8 Other specified abnormal immunological findings in serum; Z88.8 Allergy status to other drugs, medicaments and biological substances; Z86.19 Personal history of other infectious and parasitic diseases
CPT/HCPCS: 81025; C9803; Q0162; U0003; U0005

== ENCOUNTER 2021-04-16 12:18 | Inpatient (IN) | payer OTHER ==
[2021-04-16 12:26] VITALS: BMI 29.2
[2021-04-16] MEDS ORDERED: SODIUM CHLORIDE 2,245 ML IV ONE (13:21)
[2021-04-16] MEDS ORDERED: ONDANSETRON 4 MG/2 ML VIAL IVPUSH ONE (13:25)
[2021-04-16] MEDS ORDERED: ONDANSETRON 4 MG/2 ML VIAL ONE (14:21)
[2021-04-16] MEDS ORDERED: diazePAM CARPU-JECT 10 MG/2 ML DISP.SYRIN IVPUSH ONE ×2 (14:44→16:38)
[2021-04-16] MEDS ORDERED: VANCOMYCIN 1 GM in D5W (PRE-DOCKED) 1,000 MG/250 ML IVPB ONE (14:48)
[2021-04-16] MEDS ORDERED: diazePAM CARPU-JECT 10 MG/2 ML DISP.SYRIN ONE ×2 (14:52→18:36)
[2021-04-16] MEDS ORDERED: LIDOCAINE 5% TOPICAL PATCH TP ONE ×2 (14:56→15:25)
[2021-04-16 14:59] LABS: BASO % 0.6 % (0-2.0); EOS % 0.4 % (0-4.5); HEMATOCRIT 39.3 % (32.4-45.2); HEMOGLOBIN 13.1 GM/dL (10.7-15.3); LYMPH % 23.3 % (8-40); MCH 30.4 pg (25.7-33.7); MCHC 33.3 g/dl (32.0-36.0); MEAN CELL VOLUME 91.4 fl (80-96); MEAN PLT VOLUME 8.1 fl (7.5-11.1); MONO % 9.6 % (3.8-10.2); NEUT % 66.1 % (42.8-82.8); PLATELET COUNT 492 10^3/uL (134-434); RDW 16.5 % (11.6-15.6); WHITE BLOOD COUNT 14.4 K/mm3 (4.0-10.0)
[2021-04-16 15:05] LABS: INR 0.98 (0.83-1.09); PROTHROMBIN TIME (PATIENT) 11.9 SEC (9.7-13.0)
[2021-04-16 15:08] LABS: ACTIVATED PTT 24.7 SECONDS (25.2-36.5)
[2021-04-16] MEDS ORDERED: LIDOCAINE 5% TOPICAL PATCH ONE ×2 (15:11→15:30)
[2021-04-16] MEDS ORDERED: VANCOMYCIN 1 GRAM (PRE-DOCKED) 1,000 MG/250 ML BAG IVPB ONE (15:12)
[2021-04-16 15:19] LABS: CHLORIDE 93 mmol/L (98-107); SODIUM 134 mmol/L (136-145)
[2021-04-16 15:21] LABS: ALBUMIN 2.6 g/dl (3.4-5.0); ANION GAP 15 MMOL/L (8-16); CALCIUM 8.6 mg/dL (8.5-10.1); CO2 26 mmol/L (21-32)
[2021-04-16 15:22] LABS: BLOOD UREA NITROGEN 9.4 mg/dL (7-18); GLUCOSE,RANDOM 132 mg/dL (74-106)
[2021-04-16 15:25] LABS: CREATININE 0.9 mg/dL (0.55-1.3); SGOT/AST 41 U/L (15-37); SGPT/ALT 41 U/L (13-61)
[2021-04-16 15:26] LABS: BILIRUBIN,TOTAL 0.3 mg/dL (0.2-1); TOT PROT 7.3 g/dl (6.4-8.2)
[2021-04-16 15:27] LABS: ALK PHOS 166 U/L (45-117)
[2021-04-16 15:50] LABS: LACTIC ACID 3.9 mmol/L (0.4-2.0)
[2021-04-16] MEDS ORDERED: KETOROLAC TROMETHAMINE 15 MG/ML VIAL IVPUSH ONE (16:11)
[2021-04-16] MEDS ORDERED: KETOROLAC TROMETHAMINE 15 MG/ML VIAL ONE (16:42)
[2021-04-16 17:45] LABS: URINE APPEARANCE CLEAR; URINE BILIRUBIN NEGATIVE (NEGATIVE); URINE COLOR YELLOW; URINE GLUCOSE (UA) NEGATIVE (NEGATIVE); URINE KETONE NEGATIVE (NEGATIVE); URINE LEUK ESTERASE NEGATIVE (NEGATIVE); URINE NITRITE NEGATIVE (NEGATIVE); URINE PROTEIN 2+ (NEGATIVE); URINE UROBILINOGEN 0.2 mg/dL (0.2-1.0)
[2021-04-16 17:52] LABS: COCAINE, UR NEGATIVE (NEGATIVE); OPIATES, URI NEGATIVE (NEGATIVE); PHENCYCLIDINE,URINE NEGATIVE (NEGATIVE)
[2021-04-16 18:02] LABS: METHADONE, UR POSITIVE (NEGATIVE); URINE AMPHETAMINES NEGATIVE (NEGATIVE); URINE BARBITURATES NEGATIVE (NEGATIVE); URINE BENZODIAZEPINES POSITIVE (NEGATIVE)
[2021-04-16 18:38] LABS: EPI CELLS 3.1 /uL (0-25.1); URINE BACTERIA 25072.4 /uL (0-1359); URINE RBC 3.5 /uL (0-23.9); URINE WBC 5.4 /uL (0-25.8)
[2021-04-16] MEDS ORDERED: LORazepam 2 MG/ML SDV VIAL IVPUSH PRN (18:49)
[2021-04-16] MEDS ORDERED: diazePAM 5 MG TABLET PO ONE (19:09)
[2021-04-16] MEDS ORDERED: CEFTRIAXONE 1 GM in DEXTROSE 5%-WATER - 50 ML IVPB SCH (19:15)
[2021-04-16] MEDS ORDERED: MULTIVITAMINS (DAILY MVI) TABLET (FP) ONE (19:49)
[2021-04-16] MEDS ORDERED: THIAMINE HCL 200 MG/2 ML VIAL ONE (19:49)
[2021-04-16] MEDS ORDERED: FOLIC ACID 1 MG TABLET (FP) ONE (19:50)
[2021-04-16] MEDS ORDERED: CEFTRIAXONE 1 GM/50 ML BAG ONE (19:50)
[2021-04-16] MEDS ORDERED: PANTOPRAZOLE SODIUM 40 MG VIAL ONE (19:50)
[2021-04-16] MEDS: PANTOPRAZOLE 40 MG TABLET PO SCH (20:23)
[2021-04-16] MEDS: CEFTRIAXONE 1 GM in DEXTROSE 5%-WATER - 50 ML IVPB SCH (20:23)
[2021-04-16] MEDS: PANTOPRAZOLE SODIUM 40 MG VIAL IVPUSH SCH (20:23)
[2021-04-16] MEDS: FOLIC ACID 1 MG TABLET (FP) PO SCH (20:23)
[2021-04-16] MEDS: MULTIVITAMINS (DAILY MVI) TABLET (FP) PO SCH (20:24)
[2021-04-16] MEDS ORDERED: MORPHINE SULFATE 2 MG/ML VIAL IVPUSH ONE (20:48)
[2021-04-16] MEDS ORDERED: MORPHINE SULFATE 2 MG/ML VIAL ONE (20:58)
[2021-04-16] MEDS ORDERED: BACITRACIN 0.9 GM PACKET ONE (20:58)
[2021-04-16] MEDS: THIAMINE HCL 200 MG/2 ML VIAL IVPB SCH (21:08)
[2021-04-16] MEDS: BACITRACIN 15 GM TUBE TOPICAL OINTMENT TP SCH (21:08)
[2021-04-16 21:52] LABS: LACTIC ACID 3.6 mmol/L (0.4-2.0)
[2021-04-16] MEDS ORDERED: diazePAM 5 MG TABLET ONE (21:58)
[2021-04-16] MEDS: diazePAM 5 MG TABLET PO SCH (22:02)
[2021-04-16] MEDS ORDERED: LORazepam 2 MG/ML SDV VIAL ONE (23:57)
[2021-04-17] MEDS: LIDOCAINE PATCH REMOVAL MC SCH ×4 (00:14→21:06)
[2021-04-17] MEDS ORDERED: diazePAM 5 MG TABLET ONE (02:40)
[2021-04-17] MEDS: diazePAM 5 MG TABLET PO SCH ×4 (02:56→21:00)
[2021-04-17] MEDS ORDERED: METHADONE HCL 10 MG TABLET PO ONE (03:30)
[2021-04-17 03:55] LABS: LACTIC ACID 2.1 mmol/L (0.4-2.0)
[2021-04-17] MEDS: diazePAM 5 MG TABLET PO PRN (06:12)
[2021-04-17 07:28] LABS: HEMATOCRIT 32.4 % (32.4-45.2); HEMOGLOBIN 10.8 GM/dL (10.7-15.3); MCH 30.6 pg (25.7-33.7); MCHC 33.2 g/dl (32.0-36.0); MEAN CELL VOLUME 92.1 fl (80-96); MEAN PLT VOLUME 8.5 fl (7.5-11.1); PLATELET COUNT 357 10^3/uL (134-434); RBC 3.52 M/mm3 (3.60-5.2); RDW 16.4 % (11.6-15.6)
[2021-04-17 07:52] LABS: ALBUMIN 2.3 g/dl (3.4-5.0); BLOOD UREA NITROGEN 9.6 mg/dL (7-18)
[2021-04-17 07:53] LABS: MAGNESIUM 1.8 mg/dL (1.8-2.4)
[2021-04-17 07:55] LABS: CREATININE 0.9 mg/dL (0.55-1.3)
[2021-04-17 07:56] LABS: BILIRUBIN,TOTAL 0.7 mg/dL (0.2-1); PHOSPHOROUS 3.9 mg/dL (2.5-4.9)
[2021-04-17 07:59] LABS: CALCIUM 7.3 mg/dL (8.5-10.1)
[2021-04-17] MEDS ORDERED: cefTRIAXone SODIUM 1 GM VIAL ONE (09:12)
[2021-04-17] MEDS ORDERED: DEXTROSE 5%-WATER - 50 ML IVPB ONE (09:13)
[2021-04-17] MEDS: PANTOPRAZOLE SODIUM 40 MG VIAL IVPUSH SCH (09:28)
[2021-04-17] MEDS: MULTIVITAMINS (DAILY MVI) TABLET (FP) PO SCH (09:28)
[2021-04-17] MEDS: PANTOPRAZOLE 40 MG TABLET PO SCH ×2 (09:28→14:37)
[2021-04-17] MEDS: FOLIC ACID 1 MG TABLET (FP) PO SCH (09:29)
[2021-04-17] MEDS: BACITRACIN 15 GM TUBE TOPICAL OINTMENT TP SCH ×2 (09:29→21:00)
[2021-04-17] MEDS ORDERED: VANCOMYCIN 1 GM in D5W (PRE-DOCKED) 1,000 MG/250 ML IVPB SCH (10:00)
[2021-04-17] MEDS: cloNIDine HCL 0.1 MG TABLET PO PRN ×2 (11:27→17:57)
[2021-04-17] MEDS: THIAMINE HCL 200 MG/2 ML VIAL IVPB SCH ×2 (14:38→19:11)
[2021-04-17] MEDS: CEFTRIAXONE 1 GM in DEXTROSE 5%-WATER - 50 ML IVPB SCH (19:11)
[2021-04-17] MEDS ORDERED: ACETAMINOPHEN 325 MG TABLET (FP) PO ONE (22:21)
[2021-04-18] MEDS: cloNIDine HCL 0.1 MG TABLET PO PRN ×4 (01:47→13:25)
[2021-04-18] MEDS: diazePAM 5 MG TABLET PO PRN ×2 (02:33→06:33)
[2021-04-18] MEDS ORDERED: METHADONE HCL 40 MG DISPERSABLE TABLET PO ONE (06:00)
[2021-04-18] MEDS: diazePAM 5 MG TABLET PO SCH ×3 (06:42→22:00)
[2021-04-18] MEDS: PANTOPRAZOLE SODIUM 40 MG VIAL IVPUSH SCH (09:21)
[2021-04-18] MEDS: THIAMINE HCL 200 MG/2 ML VIAL IVPB SCH (09:21)
[2021-04-18] MEDS: MULTIVITAMINS (DAILY MVI) TABLET (FP) PO SCH (09:22)
[2021-04-18] MEDS: PANTOPRAZOLE 40 MG TABLET PO SCH (09:23)
[2021-04-18] MEDS: FOLIC ACID 1 MG TABLET (FP) PO SCH (09:23)
[2021-04-18] MEDS ORDERED: METHADONE 20 MG, METHADONE 5 MG PO ONE (10:00)
[2021-04-18] MEDS: CEPHALEXIN MONOHYDRATE 500 MG CAPSULE (UD) PO SCH ×2 (10:36→22:49)
[2021-04-18] MEDS: BACITRACIN 15 GM TUBE TOPICAL OINTMENT TP SCH ×2 (10:36→22:01)
[2021-04-18] MEDS: ACETAMINOPHEN 325 MG TABLET (FP) PO PRN ×2 (13:55→20:27)
[2021-04-18] MEDS: GABAPENTIN 300 MG CAPSULE PO SCH ×2 (13:55→22:00)
[2021-04-18 15:09] LABS: BASO % 1.4 % (0-2.0); EOS % 5.2 % (0-4.5); HEMATOCRIT 31.6 % (32.4-45.2); HEMOGLOBIN 10.4 GM/dL (10.7-15.3); LYMPH % 29.8 % (8-40); MCH 30.7 pg (25.7-33.7); MEAN PLT VOLUME 8.3 fl (7.5-11.1); MONO % 13.1 % (3.8-10.2); NEUT % 50.5 % (42.8-82.8); PLATELET COUNT 291 10^3/uL (134-434); RBC 3.39 M/mm3 (3.60-5.2); WHITE BLOOD COUNT 9.8 K/mm3 (4.0-10.0)
[2021-04-18 15:16] LABS: CALCIUM 8.1 mg/dL (8.5-10.1)
[2021-04-18 15:17] LABS: ALBUMIN 2.1 g/dl (3.4-5.0); BLOOD UREA NITROGEN 10.4 mg/dL (7-18)
[2021-04-18 15:20] LABS: CREATININE 0.9 mg/dL (0.55-1.3)
[2021-04-18 15:21] LABS: BILIRUBIN,TOTAL 0.6 mg/dL (0.2-1)
[2021-04-18 15:22] LABS: TOT PROT 5.8 g/dl (6.4-8.2)
[2021-04-18] MEDS ORDERED: QUEtiapine FUMARATE 50 MG TABLET PO SCH (22:00)
[2021-04-18] MEDS: LIDOCAINE PATCH REMOVAL MC SCH ×2 (22:07)
[2021-04-19] MEDS ORDERED: METHADONE HCL 10 MG TABLET PO SCH (06:00)
[2021-04-19] MEDS ORDERED: diazePAM 5 MG TABLET PO SCH (06:00)
[2021-04-19] MEDS: PANTOPRAZOLE 40 MG TABLET PO SCH ×2 (07:57→09:17)
[2021-04-19 08:15] LABS: BASO % 1.7 % (0-2.0); EOS % 5.5 % (0-4.5); HEMATOCRIT 33.9 % (32.4-45.2); LYMPH % 33.3 % (8-40); MCH 30.8 pg (25.7-33.7); MCHC 32.5 g/dl (32.0-36.0); MEAN CELL VOLUME 94.8 fl (80-96); MEAN PLT VOLUME 9.1 fl (7.5-11.1); MONO % 9.8 % (3.8-10.2); NEUT % 49.7 % (42.8-82.8); PLATELET COUNT 330 10^3/uL (134-434); RBC 3.58 M/mm3 (3.60-5.2); RDW 17.1 % (11.6-15.6); WHITE BLOOD COUNT 8.5 K/mm3 (4.0-10.0)
[2021-04-19 08:49] LABS: ALBUMIN 2.2 g/dl (3.4-5.0); BLOOD UREA NITROGEN 12.4 mg/dL (7-18); CALCIUM 8.6 mg/dL (8.5-10.1); MAGNESIUM 2.1 mg/dL (1.8-2.4)
[2021-04-19 08:53] LABS: PHOSPHOROUS 4.2 mg/dL (2.5-4.9)
[2021-04-19 08:54] LABS: BILIRUBIN,TOTAL 0.5 mg/dL (0.2-1); TOT PROT 5.8 g/dl (6.4-8.2)
[2021-04-19] MEDS: MULTIVITAMINS (DAILY MVI) TABLET (FP) PO SCH (09:06)
[2021-04-19] MEDS: CEPHALEXIN MONOHYDRATE 500 MG CAPSULE (UD) PO SCH (09:06)
[2021-04-19] MEDS: FOLIC ACID 1 MG TABLET (FP) PO SCH (09:06)
[2021-04-19] MEDS: THIAMINE HCL 200 MG/2 ML VIAL IVPB SCH (09:06)
[2021-04-19] MEDS: GABAPENTIN 300 MG CAPSULE PO SCH (09:06)
[2021-04-19] MEDS: cloNIDine HCL 0.1 MG TABLET PO PRN (09:16)
[2021-04-19] MEDS: BACITRACIN 15 GM TUBE TOPICAL OINTMENT TP SCH (09:16)
[2021-04-19] MEDS ORDERED: METHADONE 10 MG, METHADONE 40 MG PO SCH (09:30)
[2021-04-19] MEDS ORDERED: METHADONE HCL 40 MG DISPERSABLE TABLET ONE (09:31)
[2021-04-19] MEDS ORDERED: METHADONE HCL 10 MG TABLET ONE (09:32)
[2021-04-19] MEDS ORDERED: ENOXAPARIN NA (PORCINE) 40 MG/0.4 ML DISP.SYRIN SQ SCH (10:00)
[2021-04-19] MEDS ORDERED: METHADONE HCL 10 MG TABLET PO ONE (10:00)
[2021-04-19 15:53] VITALS: BP 118/58; PULSE 95; TEMP 98.5
[2021-04-19] MEDS ORDERED: diazePAM 5 MG TABLET PO ONE (16:34)
[2021-04-20] MEDS ORDERED: diazePAM 5 MG TABLET PO ONE (06:00)
[2021-04-20] MEDS ORDERED: METHADONE 10 MG, METHADONE 5 MG PO ONE (10:00)
[2021-04-21] MEDS ORDERED: METHADONE HCL 10 MG TABLET PO ONE (10:00)
[2021-04-22] MEDS ORDERED: METHADONE HCL 5 MG TABLET PO ONE (06:00)
[2021-04-22 16:08] LABS: ATYPICAL pANCA <1:20 titer (Neg:<1:20); C-ANCA <1:20 titer (Neg:<1:20)
== END 2021-04-19 17:40 | disposition other institution (70) | DRG 773 ==
LOC: JER 12:18 → JERBED 15:42 → J4W 04-17 03:03
PROVIDERS: ATTEND Internal Medicine
DX: F10.239 Alcohol dependence with withdrawal, unspecified (principal); G40.909 Epilepsy, unspecified, not intractable, without status epilepticus; F17.210 Nicotine dependence, cigarettes, uncomplicated; N39.0 Urinary tract infection, site not specified; F13.10 Sedative, hypnotic or anxiolytic abuse, uncomplicated; Z72.89 Other problems related to lifestyle; R45.1 Restlessness and agitation; M25.462 Effusion, left knee; K92.0 Hematemesis; F11.20 Opioid dependence, uncomplicated; E87.2 Acidosis
CPT/HCPCS: 36415; 71045-TC-FY; 73130-TC-RT-FY; 73562-TC-LT-FY; 73562-TC-RT-FY; 76937; 80053; 80307; 81003; 82962; 83520; 83605; 83735; 84100; 84484; 84703; 85025; 85027; 85610; 85651; 85730; 86140; 86256; 86850; 86900; 86901; 87040; 87086; 87186; 87491; 87591; 87661; 93005; 93010; 97116-GP; 97162-GP; 99285-25; C9803; J0735; U0003; U0005

== ENCOUNTER 2021-04-19 18:02 | Inpatient (IN) | payer OTHER ==
[2021-04-19 19:52] VITALS: BMI 31.3
[2021-04-19] MEDS ORDERED: MENTHOL/PHENOL 1 EACH UD MM PRN (20:22)
[2021-04-19] MEDS ORDERED: MAGNESIUM CITRATE 300 ML BOTTLE PO PRN (20:22)
[2021-04-19] MEDS ORDERED: P-EPHED 60MG/TRIPROLIDI 2.5MG TABLET PO PRN (20:22)
[2021-04-19] MEDS ORDERED: IBUPROFEN 400 MG TABLET (FP) PO PRN (20:22)
[2021-04-19] MEDS ORDERED: guaiFENesin 200 MG/10 ML 10 ML UNIT-DOSE CUPS PO PRN (20:22)
[2021-04-19] MEDS ORDERED: LOPERAMIDE HCL 2 MG CAPSULE PO PRN (20:22)
[2021-04-19] MEDS ORDERED: MAGNESIUM HYDROX 2400MG/30ML ORAL SUSPENSION 30 ML CUP PO PRN (20:22)
[2021-04-19] MEDS ORDERED: QUEtiapine FUMARATE 50 MG TABLET PO SCH (22:00)
[2021-04-19] MEDS ORDERED: TUBERCULIN PPD 5 TU/0.1ML VIAL ID ONE (22:19)
[2021-04-19] MEDS: THIAMINE HCL 100 MG TABLET (FP) PO SCH (22:20)
[2021-04-19] MEDS: CEPHALEXIN MONOHYDRATE 500 MG CAPSULE (UD) PO SCH (22:20)
[2021-04-19] MEDS: MELATONIN 5 MG TABLETS PO SCH (22:22)
[2021-04-20] MEDS: ACETAMINOPHEN 325 MG TABLET (FP) PO PRN ×2 (08:29→21:20)
[2021-04-20] MEDS: MAG HYDROX/AL HYDROX/SIMETH 30 ML UNIT-DOSE CUP PO PRN (08:29)
[2021-04-20] MEDS: PRENATAL VITAMINS W/ FOLIC ACID TABLET (FP) PO SCH (11:16)
[2021-04-20] MEDS: CEPHALEXIN MONOHYDRATE 500 MG CAPSULE (UD) PO SCH ×2 (11:17→21:18)
[2021-04-20] MEDS ORDERED: methaDONE HCL 10 MG TABLET PO SCH (11:30)
[2021-04-20] MEDS ORDERED: methaDONE HCL 10 MG TABLET ONE (11:36)
[2021-04-20] MEDS ORDERED: methaDONE HCL 40 MG DISPERSABLE TABLET ONE (11:36)
[2021-04-20] MEDS: methaDONE 40 MG, methaDONE 10 MG PO SCH (11:37)
[2021-04-20] MEDS: hydrOXYzine PAMOATE 25 MG CAPSULE (FP) PO PRN ×2 (15:24→19:48)
[2021-04-20] MEDS: GABAPENTIN 300 MG CAPSULE PO SCH (21:18)
[2021-04-20] MEDS: THIAMINE HCL 100 MG TABLET (FP) PO SCH (21:18)
[2021-04-20] MEDS: QUEtiapine FUMARATE 100 MG TABLET (FP) PO SCH (21:18)
[2021-04-20] MEDS: MELATONIN 5 MG TABLETS PO SCH (21:18)
[2021-04-21] MEDS ORDERED: methaDONE HCL 10 MG TABLET ONE (03:24)
[2021-04-21] MEDS ORDERED: methaDONE HCL 40 MG DISPERSABLE TABLET ONE (03:24)
[2021-04-21] MEDS: methaDONE 40 MG, methaDONE 10 MG PO SCH (05:58)
[2021-04-21] MEDS: hydrOXYzine PAMOATE 25 MG CAPSULE (FP) PO PRN ×4 (05:58→21:23)
[2021-04-21] MEDS: CEPHALEXIN MONOHYDRATE 500 MG CAPSULE (UD) PO SCH ×2 (10:27→21:22)
[2021-04-21] MEDS: GABAPENTIN 300 MG CAPSULE PO SCH ×2 (10:27→21:22)
[2021-04-21] MEDS: PRENATAL VITAMINS W/ FOLIC ACID TABLET (FP) PO SCH (10:27)
[2021-04-21] MEDS: QUEtiapine FUMARATE 25 MG TABLET PO SCH (10:27)
[2021-04-21] MEDS: QUEtiapine FUMARATE 100 MG TABLET (FP) PO SCH (21:22)
[2021-04-21] MEDS: MELATONIN 5 MG TABLETS PO SCH (21:22)
[2021-04-21] MEDS: THIAMINE HCL 100 MG TABLET (FP) PO SCH (21:22)
[2021-04-22] MEDS ORDERED: methaDONE HCL 10 MG TABLET ONE (03:03)
[2021-04-22] MEDS ORDERED: methaDONE HCL 40 MG DISPERSABLE TABLET ONE (03:03)
[2021-04-22] MEDS: MAG HYDROX/AL HYDROX/SIMETH 30 ML UNIT-DOSE CUP PO PRN ×2 (05:21→13:25)
[2021-04-22] MEDS: methaDONE 40 MG, methaDONE 10 MG PO SCH (06:02)
[2021-04-22] MEDS: hydrOXYzine PAMOATE 25 MG CAPSULE (FP) PO PRN ×3 (06:03→22:04)
[2021-04-22] MEDS: PRENATAL VITAMINS W/ FOLIC ACID TABLET (FP) PO SCH (09:41)
[2021-04-22] MEDS: CEPHALEXIN MONOHYDRATE 500 MG CAPSULE (UD) PO SCH ×2 (09:42→21:58)
[2021-04-22] MEDS: GABAPENTIN 300 MG CAPSULE PO SCH ×2 (09:42→21:58)
[2021-04-22] MEDS: QUEtiapine FUMARATE 25 MG TABLET PO SCH (09:42)
[2021-04-22] MEDS: ACETAMINOPHEN 325 MG TABLET (FP) PO PRN ×2 (09:43→22:04)
[2021-04-22] MEDS ORDERED: TRIMETHOBENZAMIDE HCL 200MG/2ML INJ IM ONE (21:07)
[2021-04-22] MEDS: QUEtiapine FUMARATE 100 MG TABLET (FP) PO SCH (21:58)
[2021-04-22] MEDS: MELATONIN 5 MG TABLETS PO SCH (21:59)
[2021-04-22] MEDS: THIAMINE HCL 100 MG TABLET (FP) PO SCH (21:59)
[2021-04-23] MEDS ORDERED: methaDONE HCL 10 MG TABLET ONE (03:04)
[2021-04-23] MEDS ORDERED: methaDONE HCL 40 MG DISPERSABLE TABLET ONE (03:04)
[2021-04-23] MEDS: hydrOXYzine PAMOATE 25 MG CAPSULE (FP) PO PRN ×4 (06:09→21:19)
[2021-04-23] MEDS: methaDONE 40 MG, methaDONE 10 MG PO SCH (06:09)
[2021-04-23] MEDS: MAG HYDROX/AL HYDROX/SIMETH 30 ML UNIT-DOSE CUP PO PRN (06:10)
[2021-04-23] MEDS: QUEtiapine FUMARATE 25 MG TABLET PO SCH (09:50)
[2021-04-23] MEDS: CEPHALEXIN MONOHYDRATE 500 MG CAPSULE (UD) PO SCH ×2 (09:50→21:18)
[2021-04-23] MEDS: PRENATAL VITAMINS W/ FOLIC ACID TABLET (FP) PO SCH (09:50)
[2021-04-23] MEDS: GABAPENTIN 300 MG CAPSULE PO SCH ×2 (09:50→21:18)
[2021-04-23] MEDS: ACETAMINOPHEN 325 MG TABLET (FP) PO PRN ×3 (09:51→21:19)
[2021-04-23] MEDS: FAMOTIDINE 20 MG TABLET PO SCH ×2 (10:32→21:18)
[2021-04-23] MEDS ORDERED: ERGOCALCIFEROL (VIT D2) 50,000 UNIT (1.25 MG) CAPSULE PO SCH (13:45)
[2021-04-23] MEDS: MELATONIN 5 MG TABLETS PO SCH (21:18)
[2021-04-23] MEDS: QUEtiapine FUMARATE 100 MG TABLET (FP) PO SCH (21:18)
[2021-04-23] MEDS: THIAMINE HCL 100 MG TABLET (FP) PO SCH (21:19)
[2021-04-24] MEDS ORDERED: methaDONE HCL 40 MG DISPERSABLE TABLET ONE (03:24)
[2021-04-24] MEDS ORDERED: methaDONE HCL 10 MG TABLET ONE (03:24)
[2021-04-24] MEDS: methaDONE 40 MG, methaDONE 10 MG PO SCH (06:11)
[2021-04-24] MEDS: hydrOXYzine PAMOATE 25 MG CAPSULE (FP) PO PRN ×2 (06:11→10:00)
[2021-04-24] MEDS: CEPHALEXIN MONOHYDRATE 500 MG CAPSULE (UD) PO SCH ×2 (10:00→23:36)
[2021-04-24] MEDS: PRENATAL VITAMINS W/ FOLIC ACID TABLET (FP) PO SCH (10:00)
[2021-04-24] MEDS: GABAPENTIN 300 MG CAPSULE PO SCH ×2 (10:00→23:36)
[2021-04-24] MEDS: FAMOTIDINE 20 MG TABLET PO SCH ×2 (10:00→23:36)
[2021-04-24] MEDS: QUEtiapine FUMARATE 25 MG TABLET PO SCH (10:02)
[2021-04-24] MEDS ORDERED: LORazepam 2 MG/ML SDV VIAL ONE ×3 (18:23→18:34)
[2021-04-24 18:46] VITALS: BP 97/60; PULSE 85
[2021-04-24 20:26] VITALS: TEMP 97.8
[2021-04-24] MEDS: MELATONIN 5 MG TABLETS PO SCH (23:36)
[2021-04-24] MEDS: QUEtiapine FUMARATE 100 MG TABLET (FP) PO SCH (23:36)
[2021-04-24] MEDS: THIAMINE HCL 100 MG TABLET (FP) PO SCH (23:37)
[2021-04-25] MEDS: methaDONE 40 MG, methaDONE 10 MG PO SCH (06:29)
== END 2021-04-24 21:00 | disposition short-term general hospital (02) | DRG 772 ==
LOC: YASAS 18:02 → Y5N 20:32 → Y3W 04-21 13:18
PROVIDERS: ADMIT Allergy & Immunology; ATTEND Allergy & Immunology
PROC: HZ42ZZZ Group Counseling for Substance Abuse Treatment, Cognitive-Behavioral (ICD-10-PCS; principal; 2021-04-19)
DX: F10.20 Alcohol dependence, uncomplicated (principal); F13.20 Sedative, hypnotic or anxiolytic dependence, uncomplicated; F17.210 Nicotine dependence, cigarettes, uncomplicated; F19.24 Other psychoactive substance dependence with psychoactive substance-induced mood disorder; F43.10 Post-traumatic stress disorder, unspecified; G40.909 Epilepsy, unspecified, not intractable, without status epilepticus; K21.9 Gastro-esophageal reflux disease without esophagitis; B18.2 Chronic viral hepatitis C; Z90.81 Acquired absence of spleen; Z88.8 Allergy status to other drugs, medicaments and biological substances; Z91.19 Patient's noncompliance with other medical treatment and regimen
CPT/HCPCS: 81025

== ENCOUNTER 2021-04-24 19:21 | Inpatient (IN) | payer OTHER ==
[2021-04-24] MEDS ORDERED: LORazepam 2 MG/ML SDV VIAL IVPUSH ONE (19:57)
[2021-04-24] MEDS ORDERED: LORazepam 2 MG/ML SDV VIAL ONE (20:32)
[2021-04-24 21:03] LABS: BASO % 0.3 % (0-2.0); EOS % 0.4 % (0-4.5); HEMATOCRIT 31.9 % (32.4-45.2); HEMOGLOBIN 10.3 GM/dL (10.7-15.3); MCH 29.7 pg (25.7-33.7); MCHC 32.3 g/dl (32.0-36.0); MEAN CELL VOLUME 92.1 fl (80-96); MEAN PLT VOLUME 8.1 fl (7.5-11.1); MONO % 9.4 % (3.8-10.2); NEUT % 84.9 % (42.8-82.8); PLATELET COUNT 366 10^3/uL (134-434); RBC 3.46 M/mm3 (3.60-5.2); RDW 17.3 % (11.6-15.6); WHITE BLOOD COUNT 16.7 K/mm3 (4.0-10.0)
[2021-04-24 21:11] LABS: INR 1.01 (0.83-1.09); PROTHROMBIN TIME (PATIENT) 12.2 SEC (9.7-13.0)
[2021-04-24 21:14] LABS: ACTIVATED PTT 28.6 SECONDS (25.2-36.5)
[2021-04-24 21:23] LABS: CHLORIDE 102 mmol/L (98-107); SODIUM 137 mmol/L (136-145)
[2021-04-24 21:25] LABS: CALCIUM 8.5 mg/dL (8.5-10.1)
[2021-04-24 21:26] LABS: ALBUMIN 2.3 g/dl (3.4-5.0); ANION GAP 9 MMOL/L (8-16); CO2 26 mmol/L (21-32); GLUCOSE,RANDOM 98 mg/dL (74-106)
[2021-04-24 21:29] LABS: CREATININE 1.4 mg/dL (0.55-1.3); SGOT/AST 66 U/L (15-37); SGPT/ALT 32 U/L (13-61)
[2021-04-24 21:30] LABS: BILIRUBIN,TOTAL 0.3 mg/dL (0.2-1); TOT PROT 6.1 g/dl (6.4-8.2)
[2021-04-24 21:47] LABS: ALK PHOS 131 U/L (45-117)
[2021-04-24 22:36] LABS: EPI CELLS >36 /uL (0-25.1); HYALINE CASTS 1 /uL (0-3.1); PH,URINE 7.5 (5.0-8.0); URINE APPEARANCE CLEAR; URINE BACTERIA 17 /uL (0-1359); URINE BILIRUBIN NEGATIVE (NEGATIVE); URINE COLOR YELLOW; URINE GLUCOSE (UA) NEGATIVE (NEGATIVE); URINE KETONE NEGATIVE (NEGATIVE); URINE LEUK ESTERASE TRACE (NEGATIVE); URINE NITRITE NEGATIVE (NEGATIVE); URINE PROTEIN 2+ (NEGATIVE); URINE RBC 32 /uL (0-23.9); URINE WBC 7 /uL (0-25.8)
[2021-04-24 22:43] LABS: URINE BARBITURATES NEGATIVE (NEGATIVE)
[2021-04-24 22:44] LABS: COCAINE, UR NEGATIVE (NEGATIVE); OPIATES, URI NEGATIVE (NEGATIVE); PHENCYCLIDINE,URINE NEGATIVE (NEGATIVE); URINE AMPHETAMINES NEGATIVE (NEGATIVE)
[2021-04-24 22:49] LABS: METHADONE, UR POSITIVE (NEGATIVE); URINE BENZODIAZEPINES POSITIVE (NEGATIVE)
[2021-04-24 23:24] LABS: LACTIC ACID 2.3 mmol/L (0.4-2.0)
[2021-04-24] MEDS ORDERED: VANCOMYCIN 1 GM in D5W (PRE-DOCKED) 1,000 MG/250 ML IVPB ONE (23:52)
[2021-04-24] MEDS ORDERED: PIPERACILLIN/TAZOB 3.375 GM 3.375 GM in DEXTROSE 5%-WATER - 50 ML IVPB ONE (23:52)
[2021-04-24] MEDS ORDERED: VANCOMYCIN 1 GRAM (PRE-DOCKED) 1,000 MG/250 ML BAG IVPB ONE (23:56)
[2021-04-24] MEDS ORDERED: PIPERACILLIN/TAZOB 3.375 GM 3.375 GM/50 ML BAG IVPB ONE (23:57)
[2021-04-24] MEDS ORDERED: SODIUM CHLORIDE 0.9% 500 ML INFUS.BAG IV ONE (23:57)
[2021-04-25] MEDS ORDERED: ACETAMINOPHEN 500 MG TABLET (FP) PO ONE (00:15)
[2021-04-25] MEDS ORDERED: ACETAMINOPHEN 325 MG TABLET (FP) ONE (01:20)
[2021-04-25] MEDS ORDERED: SODIUM CHLORIDE 1,000 ML IV STA (02:40)
[2021-04-25] MEDS ORDERED: LACTATED RINGERS SOLUTION 1,000 ML IV SCH ×2 (05:15→14:01)
[2021-04-25] MEDS ORDERED: methaDONE HCL 10 MG TABLET ONE (05:44)
[2021-04-25] MEDS ORDERED: ONDANSETRON 4 MG/2 ML VIAL ONE ×2 (05:45→11:20)
[2021-04-25] MEDS: ONDANSETRON 4 MG/2 ML VIAL IVPUSH PRN ×3 (05:51→21:19)
[2021-04-25] MEDS ORDERED: LORazepam 1 MG TABLET ONE ×2 (05:59→09:28)
[2021-04-25] MEDS: LORazepam 1 MG TABLET PO SCH ×2 (06:00→11:40)
[2021-04-25] MEDS ORDERED: methaDONE HCL 10 MG TABLET (FOR DETOX USE ONLY) PO ONE (06:00)
[2021-04-25] MEDS ORDERED: methaDONE HCL 10 MG TABLET PO ONE (06:00)
[2021-04-25 08:16] LABS: BASO % 0.4 % (0-2.0); EOS % 1.1 % (0-4.5); HEMATOCRIT 26.6 % (32.4-45.2); HEMOGLOBIN 8.5 GM/dL (10.7-15.3); LYMPH % 17.5 % (8-40); MCH 29.9 pg (25.7-33.7); MEAN CELL VOLUME 93.4 fl (80-96); PLATELET COUNT 337 10^3/uL (134-434); RBC 2.84 M/mm3 (3.60-5.2); RDW 17.3 % (11.6-15.6); WHITE BLOOD COUNT 19.8 K/mm3 (4.0-10.0)
[2021-04-25 08:37] LABS: BLOOD UREA NITROGEN 12.7 mg/dL (7-18); CALCIUM 7.6 mg/dL (8.5-10.1); MAGNESIUM 1.8 mg/dL (1.8-2.4)
[2021-04-25 08:40] LABS: CREATININE 1.2 mg/dL (0.55-1.3)
[2021-04-25 08:42] LABS: BILIRUBIN,TOTAL 0.4 mg/dL (0.2-1)
[2021-04-25 09:01] LABS: ALBUMIN 1.8 g/dl (3.4-5.0)
[2021-04-25] MEDS ORDERED: MULTIVITAMINS (DAILY MVI) TABLET (FP) ONE (09:27)
[2021-04-25] MEDS ORDERED: ENOXAPARIN NA (PORCINE) 40 MG/0.4 ML DISP.SYRIN SQ ONE (09:28)
[2021-04-25] MEDS ORDERED: FOLIC ACID 1 MG TABLET (FP) ONE (09:28)
[2021-04-25] MEDS ORDERED: ENOXAPARIN NA (PORCINE) 40 MG/0.4 ML DISP.SYRIN SQ SCH (10:00)
[2021-04-25] MEDS ORDERED: MULTIVITAMINS (DAILY MVI) TABLET (FP) PO SCH (10:00)
[2021-04-25] MEDS ORDERED: FOLIC ACID 1 MG TABLET (FP) PO SCH (10:00)
[2021-04-25] MEDS ORDERED: PIPERACILLIN/TAZOB 3.375 GM 3.375 GM in DEXTROSE 5%-WATER - 50 ML IVPB SCH (10:00)
[2021-04-25] MEDS ORDERED: THIAMINE HCL 100 MG TABLET (FP) PO SCH (10:00)
[2021-04-25] MEDS ORDERED: THIAMINE HCL 100 MG TABLET (FP) ONE (10:29)
[2021-04-25] MEDS: LORazepam 0.5 MG TABLET PO SCH (14:26)
[2021-04-25] MEDS ORDERED: QUEtiapine FUMARATE 25 MG TABLET PO ONE (17:08)
[2021-04-25] MEDS ORDERED: GABAPENTIN 300 MG CAPSULE PO ONE (18:08)
[2021-04-25] MEDS ORDERED: DEXTROSE 5%-WATER - 50 ML IVPB ONE (18:29)
[2021-04-25] MEDS ORDERED: PIPERACILLIN/TAZOBACTAM 3.375 GM VIAL IVPB ONE (18:29)
[2021-04-25] MEDS: PIPERACILLIN/TAZOB 3.375 GM 3.375 GM in DEXTROSE 5%-WATER - 50 ML IVPB SCH (18:39)
[2021-04-25] MEDS: NICOTINE 14 MG/24 HOURS TOPICAL PATCH TD SCH (18:39)
[2021-04-25] MEDS ORDERED: MELATONIN 5 MG TABLETS PO ONE (21:13)
[2021-04-25] MEDS ORDERED: hydrOXYzine PAMOATE 25 MG CAPSULE (FP) PO ONE (21:17)
[2021-04-25] MEDS: LORazepam 1 MG TABLET PO PRN (21:19)
[2021-04-25] MEDS: GABAPENTIN 300 MG CAPSULE PO SCH (21:19)
[2021-04-25] MEDS ORDERED: GABAPENTIN 300 MG CAPSULE PO SCH (22:00)
[2021-04-25] MEDS ORDERED: QUEtiapine FUMARATE 100 MG TABLET (FP) PO SCH (22:00)
[2021-04-26] MEDS ORDERED: PIPERACILLIN/TAZOBACTAM 3.375 GM VIAL IVPB ONE ×3 (00:52→16:08)
[2021-04-26] MEDS ORDERED: DEXTROSE 5%-WATER - 50 ML IVPB ONE ×3 (00:53→16:08)
[2021-04-26] MEDS: LORazepam 0.5 MG TABLET PO SCH ×2 (01:08→12:07)
[2021-04-26] MEDS: PIPERACILLIN/TAZOB 3.375 GM 3.375 GM in DEXTROSE 5%-WATER - 50 ML IVPB SCH ×3 (01:10→17:40)
[2021-04-26] MEDS ORDERED: MELATONIN 5 MG TABLETS PO ONE (01:30)
[2021-04-26] MEDS ORDERED: methaDONE HCL 40 MG DISPERSABLE TABLET ONE (05:06)
[2021-04-26] MEDS ORDERED: methaDONE HCL 10 MG TABLET ONE (05:07)
[2021-04-26] MEDS: methaDONE 40 MG, methaDONE 10 MG PO SCH (05:08)
[2021-04-26] MEDS ORDERED: methaDONE HCL 10 MG TABLET PO SCH (06:00)
[2021-04-26] MEDS: QUEtiapine FUMARATE 25 MG TABLET PO SCH ×2 (09:23→21:24)
[2021-04-26] MEDS: ENOXAPARIN NA (PORCINE) 40 MG/0.4 ML DISP.SYRIN SQ SCH (09:24)
[2021-04-26] MEDS: THIAMINE HCL 100 MG TABLET (FP) PO SCH (09:24)
[2021-04-26] MEDS: GABAPENTIN 300 MG CAPSULE PO SCH ×2 (09:24→21:24)
[2021-04-26] MEDS: NICOTINE 14 MG/24 HOURS TOPICAL PATCH TD SCH (09:24)
[2021-04-26] MEDS: FOLIC ACID 1 MG TABLET (FP) PO SCH (09:24)
[2021-04-26] MEDS: MULTIVITAMINS (DAILY MVI) TABLET (FP) PO SCH (09:25)
[2021-04-26] MEDS: ONDANSETRON 4 MG/2 ML VIAL IVPUSH PRN ×4 (09:26→21:27)
[2021-04-26] MEDS: LORazepam 1 MG TABLET PO PRN ×3 (09:28→21:25)
[2021-04-26] MEDS ORDERED: PNEUMOCOCCAL 23 VACCINE 0.5 ML VIAL IM ONE (10:00)
[2021-04-26] MEDS ORDERED: PNEUMOC 13-VAL CONJ-DIP CRM/PF 0.5 ML DISP.SYRIN IM ONE (10:00)
[2021-04-26] MEDS ORDERED: ACETAMINOPHEN 1000 MG/100 ML VIAL (NON FORMULARY) IVPB ONE ×2 (11:33→23:23)
[2021-04-26] MEDS: FAMOTIDINE 20 MG/50 ML IVPB 20 MG/50 ML MG IVPB SCH ×2 (12:08→21:39)
[2021-04-26] MEDS ORDERED: QUEtiapine FUMARATE 100 MG TABLET (FP) PO SCH (22:00)
[2021-04-26] MEDS ORDERED: ACETAMINOPHEN 325 MG TABLET (FP) PO PRN (23:04)
[2021-04-27] MEDS: LORazepam 0.5 MG TABLET PO SCH ×2 (00:36→13:00)
[2021-04-27] MEDS ORDERED: DEXTROSE 5%-WATER - 50 ML IVPB ONE ×3 (00:52→17:08)
[2021-04-27] MEDS ORDERED: PIPERACILLIN/TAZOBACTAM 3.375 GM VIAL IVPB ONE ×3 (00:52→17:08)
[2021-04-27] MEDS: PIPERACILLIN/TAZOB 3.375 GM 3.375 GM in DEXTROSE 5%-WATER - 50 ML IVPB SCH ×3 (01:13→18:01)
[2021-04-27] MEDS ORDERED: methaDONE HCL 40 MG DISPERSABLE TABLET ONE (05:10)
[2021-04-27] MEDS ORDERED: methaDONE HCL 10 MG TABLET ONE (05:10)
[2021-04-27] MEDS: ONDANSETRON 4 MG/2 ML VIAL IVPUSH PRN ×2 (05:13→12:43)
[2021-04-27] MEDS: LORazepam 1 MG TABLET PO PRN ×4 (05:13→23:04)
[2021-04-27] MEDS: methaDONE 40 MG, methaDONE 10 MG PO SCH (05:20)
[2021-04-27 08:21] LABS: BASO % 0.5 % (0-2.0); HEMATOCRIT 29.8 % (32.4-45.2); HEMOGLOBIN 9.8 GM/dL (10.7-15.3); LYMPH % 28.5 % (8-40); MCH 30.3 pg (25.7-33.7); MCHC 32.8 g/dl (32.0-36.0); MEAN CELL VOLUME 92.3 fl (80-96); MEAN PLT VOLUME 8.1 fl (7.5-11.1); MONO % 11.7 % (3.8-10.2); NEUT % 55.3 % (42.8-82.8); PLATELET COUNT 492 10^3/uL (134-434); RBC 3.23 M/mm3 (3.60-5.2); RDW 17.2 % (11.6-15.6); WHITE BLOOD COUNT 10.9 K/mm3 (4.0-10.0)
[2021-04-27 08:53] LABS: BLOOD UREA NITROGEN 10.5 mg/dL (7-18); MAGNESIUM 1.9 mg/dL (1.8-2.4)
[2021-04-27 08:56] LABS: CREATININE 1.5 mg/dL (0.55-1.3)
[2021-04-27 08:57] LABS: BILIRUBIN,TOTAL 0.2 mg/dL (0.2-1); TOT PROT 6.2 g/dl (6.4-8.2)
[2021-04-27] MEDS: THIAMINE HCL 100 MG TABLET (FP) PO SCH (09:07)
[2021-04-27] MEDS: GABAPENTIN 300 MG CAPSULE PO SCH ×2 (09:07→21:24)
[2021-04-27] MEDS: QUEtiapine FUMARATE 25 MG TABLET PO SCH ×2 (09:07→21:27)
[2021-04-27] MEDS: MULTIVITAMINS (DAILY MVI) TABLET (FP) PO SCH (09:07)
[2021-04-27] MEDS: NICOTINE 14 MG/24 HOURS TOPICAL PATCH TD SCH (09:07)
[2021-04-27] MEDS: FOLIC ACID 1 MG TABLET (FP) PO SCH (09:08)
[2021-04-27 09:12] LABS: ALBUMIN 2.2 g/dl (3.4-5.0); CALCIUM 9.1 mg/dL (8.5-10.1)
[2021-04-27] MEDS: ENOXAPARIN NA (PORCINE) 40 MG/0.4 ML DISP.SYRIN SQ SCH (09:13)
[2021-04-27] MEDS: FAMOTIDINE 20 MG/50 ML IVPB 20 MG/50 ML MG IVPB SCH ×2 (09:27→21:27)
[2021-04-27] MEDS ORDERED: LORazepam 1 MG TABLET PO ONE (10:00)
[2021-04-27 10:14] LABS: ANISOCYTOSIS 1+; MACROCYTOSIS 0; PLATELET ESTIMATE INCREASED; TARGET CELLS 1+
[2021-04-27] MEDS ORDERED: LORazepam 2 MG/ML SDV VIAL IVPUSH ONE (10:15)
[2021-04-27] MEDS: ACETAMINOPHEN 325 MG TABLET (FP) PO PRN (15:08)
[2021-04-28] MEDS ORDERED: DEXTROSE 5%-WATER - 50 ML IVPB ONE ×2 (01:09→09:27)
[2021-04-28] MEDS ORDERED: PIPERACILLIN/TAZOBACTAM 3.375 GM VIAL IVPB ONE ×2 (01:09→09:27)
[2021-04-28] MEDS: LORazepam 0.5 MG TABLET PO SCH ×3 (01:22→23:49)
[2021-04-28] MEDS: PIPERACILLIN/TAZOB 3.375 GM 3.375 GM in DEXTROSE 5%-WATER - 50 ML IVPB SCH ×2 (01:23→10:50)
[2021-04-28] MEDS: ONDANSETRON 4 MG/2 ML VIAL IVPUSH PRN ×4 (01:25→23:58)
[2021-04-28] MEDS ORDERED: ALBUTEROL SO4 2.5/IPRATROPIUM 0.5 INH SOL 3 ML VIAL.NEB. NEB ONE (01:53)
[2021-04-28] MEDS ORDERED: methaDONE HCL 40 MG DISPERSABLE TABLET ONE (05:07)
[2021-04-28] MEDS ORDERED: methaDONE HCL 10 MG TABLET ONE (05:07)
[2021-04-28] MEDS: methaDONE 40 MG, methaDONE 10 MG PO SCH (05:11)
[2021-04-28] MEDS: LORazepam 1 MG TABLET PO PRN ×3 (05:15→18:46)
[2021-04-28 08:36] LABS: BASO % 0.5 % (0-2.0); EOS % 1.7 % (0-4.5); HEMATOCRIT 31.2 % (32.4-45.2); HEMOGLOBIN 9.8 GM/dL (10.7-15.3); LYMPH % 10.5 % (8-40); MCH 28.9 pg (25.7-33.7); MCHC 31.4 g/dl (32.0-36.0); MEAN CELL VOLUME 92.1 fl (80-96); MEAN PLT VOLUME 8.2 fl (7.5-11.1); MONO % 6.1 % (3.8-10.2); NEUT % 81.2 % (42.8-82.8); PLATELET COUNT 575 10^3/uL (134-434); RBC 3.39 M/mm3 (3.60-5.2); RDW 17.4 % (11.6-15.6); WHITE BLOOD COUNT 21.9 K/mm3 (4.0-10.0)
[2021-04-28 09:00] LABS: ALBUMIN 2.2 g/dl (3.4-5.0); CALCIUM 9.3 mg/dL (8.5-10.1)
[2021-04-28 09:01] LABS: BLOOD UREA NITROGEN 11.4 mg/dL (7-18); MAGNESIUM 1.6 mg/dL (1.8-2.4)
[2021-04-28 09:04] LABS: CREATININE 1.8 mg/dL (0.55-1.3); PHOSPHOROUS 5.6 mg/dL (2.5-4.9)
[2021-04-28 09:05] LABS: BILIRUBIN,TOTAL 0.2 mg/dL (0.2-1); TOT PROT 6.3 g/dl (6.4-8.2)
[2021-04-28] MEDS: NICOTINE 14 MG/24 HOURS TOPICAL PATCH TD SCH (09:33)
[2021-04-28] MEDS: FOLIC ACID 1 MG TABLET (FP) PO SCH (09:33)
[2021-04-28] MEDS: MULTIVITAMINS (DAILY MVI) TABLET (FP) PO SCH (09:34)
[2021-04-28] MEDS: QUEtiapine FUMARATE 25 MG TABLET PO SCH ×2 (09:34→21:35)
[2021-04-28] MEDS: GABAPENTIN 300 MG CAPSULE PO SCH ×2 (09:35→21:35)
[2021-04-28] MEDS: THIAMINE HCL 100 MG TABLET (FP) PO SCH (09:35)
[2021-04-28] MEDS: FAMOTIDINE 20 MG/50 ML IVPB 20 MG/50 ML MG IVPB SCH ×2 (09:38→21:37)
[2021-04-28] MEDS: ENOXAPARIN NA (PORCINE) 40 MG/0.4 ML DISP.SYRIN SQ SCH (09:50)
[2021-04-28 11:21] LABS: ANISOCYTOSIS 1+; MACROCYTOSIS 0; OVALOCYTE 1+; PLATELET ESTIMATE INCREASED; TARGET CELLS 2+
[2021-04-28] MEDS ORDERED: MAGNESIUM 1GM/D5W 100ML - 100 ML IVPB IVPB ONE (14:43)
[2021-04-28] MEDS: MEROPENEM 1 GM in DEXTROSE 5%-WATER 100 ML IVPB SCH ×2 (15:30→17:45)
[2021-04-28] MEDS: SODIUM CHLORIDE 1,000 ML IV SCH (15:37)
[2021-04-28] MEDS: ALBUTEROL SO4 2.5/IPRATROPIUM 0.5 INH SOL 3 ML VIAL.NEB. NEB PRN (16:27)
[2021-04-28] MEDS ORDERED: MEROPENEM 1 GM VIAL (RESTRICTED TO ID) IVPB ONE (16:44)
[2021-04-28] MEDS ORDERED: DEXTROSE 5%-WATER 100 ML IVPB ONE (16:44)
[2021-04-28] MEDS: DAPTOMYCIN 500 MG in SODIUM CHLORIDE 50 ML IVPB SCH (16:50)
[2021-04-28] MEDS: ACETAMINOPHEN 325 MG TABLET (FP) PO PRN (21:35)
[2021-04-29] MEDS ORDERED: DEXTROSE 5%-WATER 100 ML IVPB ONE ×3 (01:12→17:18)
[2021-04-29] MEDS ORDERED: MEROPENEM 1 GM VIAL (RESTRICTED TO ID) IVPB ONE ×3 (01:12→17:18)
[2021-04-29] MEDS: MEROPENEM 1 GM in DEXTROSE 5%-WATER 100 ML IVPB SCH ×3 (02:35→17:49)
[2021-04-29] MEDS: LORazepam 1 MG TABLET PO PRN ×3 (04:51→18:07)
[2021-04-29] MEDS ORDERED: methaDONE HCL 40 MG DISPERSABLE TABLET ONE (05:11)
[2021-04-29] MEDS ORDERED: methaDONE HCL 10 MG TABLET ONE (05:11)
[2021-04-29] MEDS: methaDONE 40 MG, methaDONE 10 MG PO SCH (05:13)
[2021-04-29] MEDS: ONDANSETRON 4 MG/2 ML VIAL IVPUSH PRN ×2 (08:49→22:12)
[2021-04-29 08:59] LABS: BASO % 1.4 % (0-2.0); HEMOGLOBIN 9.5 GM/dL (10.7-15.3); LYMPH % 20.9 % (8-40); MCH 29.3 pg (25.7-33.7); MCHC 31.6 g/dl (32.0-36.0); MEAN CELL VOLUME 92.6 fl (80-96); MEAN PLT VOLUME 8.3 fl (7.5-11.1); MONO % 5.5 % (3.8-10.2); NEUT % 69.2 % (42.8-82.8); PLATELET COUNT 571 10^3/uL (134-434); RBC 3.24 M/mm3 (3.60-5.2); RDW 17.6 % (11.6-15.6); WHITE BLOOD COUNT 21.3 K/mm3 (4.0-10.0)
[2021-04-29 09:23] LABS: CALCIUM 9.2 mg/dL (8.5-10.1)
[2021-04-29 09:24] LABS: BLOOD UREA NITROGEN 16.6 mg/dL (7-18)
[2021-04-29 09:27] LABS: CREATININE 1.7 mg/dL (0.55-1.3); PHOSPHOROUS 6.4 mg/dL (2.5-4.9)
[2021-04-29 09:28] LABS: BILIRUBIN,TOTAL 0.2 mg/dL (0.2-1); TOT PROT 5.9 g/dl (6.4-8.2)
[2021-04-29] MEDS: THIAMINE HCL 100 MG TABLET (FP) PO SCH (10:14)
[2021-04-29] MEDS: FOLIC ACID 1 MG TABLET (FP) PO SCH (10:14)
[2021-04-29] MEDS: ENOXAPARIN NA (PORCINE) 40 MG/0.4 ML DISP.SYRIN SQ SCH (10:14)
[2021-04-29] MEDS: GABAPENTIN 300 MG CAPSULE PO SCH ×2 (10:14→21:57)
[2021-04-29] MEDS: NICOTINE 14 MG/24 HOURS TOPICAL PATCH TD SCH (10:14)
[2021-04-29] MEDS: QUEtiapine FUMARATE 25 MG TABLET PO SCH ×2 (10:15→21:55)
[2021-04-29] MEDS: SODIUM CHLORIDE 1,000 ML IV SCH ×2 (10:16→15:42)
[2021-04-29] MEDS: FAMOTIDINE 20 MG/50 ML IVPB 20 MG/50 ML MG IVPB SCH ×2 (10:16→21:55)
[2021-04-29] MEDS: MULTIVITAMINS (DAILY MVI) TABLET (FP) PO SCH (10:16)
[2021-04-29 10:23] LABS: ANISOCYTOSIS 1+; MACROCYTOSIS 0; PLATELET ESTIMATE INCREASED
[2021-04-29] MEDS: LORazepam 0.5 MG TABLET PO SCH ×2 (12:54→23:53)
[2021-04-29] MEDS: DAPTOMYCIN 500 MG in SODIUM CHLORIDE 50 ML IVPB SCH (12:54)
[2021-04-29] MEDS ORDERED: LORazepam 1 MG TABLET PO PRN (18:08)
[2021-04-29] MEDS: ALBUTEROL SO4 2.5/IPRATROPIUM 0.5 INH SOL 3 ML VIAL.NEB. NEB PRN (22:11)
[2021-04-30] MEDS ORDERED: MEROPENEM 1 GM VIAL (RESTRICTED TO ID) IVPB ONE ×3 (01:16→17:35)
[2021-04-30] MEDS ORDERED: DEXTROSE 5%-WATER 100 ML IVPB ONE ×3 (01:17→17:35)
[2021-04-30] MEDS: MEROPENEM 1 GM in DEXTROSE 5%-WATER 100 ML IVPB SCH ×3 (01:40→17:43)
[2021-04-30] MEDS ORDERED: methaDONE HCL 10 MG TABLET ONE (04:45)
[2021-04-30] MEDS ORDERED: methaDONE HCL 40 MG DISPERSABLE TABLET ONE (04:45)
[2021-04-30] MEDS: methaDONE 40 MG, methaDONE 10 MG PO SCH (05:40)
[2021-04-30] MEDS: LORazepam 1 MG TABLET PO PRN ×2 (05:41→19:56)
[2021-04-30] MEDS ORDERED: FAMOTIDINE 10 MG TABLET PO SCH (10:00)
[2021-04-30] MEDS: DAPTOMYCIN 500 MG in SODIUM CHLORIDE 50 ML IVPB SCH (10:18)
[2021-04-30] MEDS: MULTIVITAMINS (DAILY MVI) TABLET (FP) PO SCH (10:18)
[2021-04-30] MEDS: GABAPENTIN 300 MG CAPSULE PO SCH ×2 (10:18→22:00)
[2021-04-30] MEDS: THIAMINE HCL 100 MG TABLET (FP) PO SCH (10:18)
[2021-04-30] MEDS: QUEtiapine FUMARATE 25 MG TABLET PO SCH ×2 (10:18→22:00)
[2021-04-30] MEDS: NICOTINE 14 MG/24 HOURS TOPICAL PATCH TD SCH (10:18)
[2021-04-30] MEDS: FOLIC ACID 1 MG TABLET (FP) PO SCH (10:18)
[2021-04-30] MEDS: ENOXAPARIN NA (PORCINE) 40 MG/0.4 ML DISP.SYRIN SQ SCH (10:19)
[2021-04-30 11:22] LABS: BASO % 1.1 % (0-2.0); EOS % 4.9 % (0-4.5); HEMATOCRIT 29.2 % (32.4-45.2); HEMOGLOBIN 9.7 GM/dL (10.7-15.3); LYMPH % 26.4 % (8-40); MCH 30.2 pg (25.7-33.7); MCHC 33.3 g/dl (32.0-36.0); MEAN CELL VOLUME 90.9 fl (80-96); MEAN PLT VOLUME 7.5 fl (7.5-11.1); MONO % 9.1 % (3.8-10.2); NEUT % 58.5 % (42.8-82.8); PLATELET COUNT 650 10^3/uL (134-434); RBC 3.21 M/mm3 (3.60-5.2); RDW 17.5 % (11.6-15.6); WHITE BLOOD COUNT 14.3 K/mm3 (4.0-10.0)
[2021-04-30 11:43] LABS: ALBUMIN 2.1 g/dl (3.4-5.0); CALCIUM 9.8 mg/dL (8.5-10.1); MAGNESIUM 1.6 mg/dL (1.8-2.4)
[2021-04-30 11:47] LABS: BILIRUBIN,TOTAL 0.1 mg/dL (0.2-1); CREATININE 1.7 mg/dL (0.55-1.3); PHOSPHOROUS 6.2 mg/dL (2.5-4.9); TOT PROT 6.1 g/dl (6.4-8.2)
[2021-04-30] MEDS: LORazepam 0.5 MG TABLET PO SCH (11:59)
[2021-04-30 13:24] LABS: ANISOCYTOSIS 1+; MACROCYTOSIS 1+; PLATELET ESTIMATE INCREASED
[2021-04-30] MEDS ORDERED: FAMOTIDINE 10 MG TABLET PO ONE (14:48)
[2021-04-30] MEDS: SODIUM CHLORIDE 1,000 ML IV SCH ×2 (16:05→22:00)
[2021-04-30] MEDS ORDERED: MAGNESIUM OXIDE 400 MG TABLET (FP) PO ONE (16:13)
[2021-04-30] MEDS ORDERED: diphenhydrAMINE HCL 25 MG CAPSULE (FP) PO ONE (17:21)
[2021-04-30] MEDS ORDERED: cloNIDine HCL 0.1 MG TABLET PO PRN (18:49)
[2021-04-30] MEDS: ONDANSETRON 4 MG/2 ML VIAL IVPUSH PRN (22:09)
[2021-04-30] MEDS: ALBUTEROL SO4 2.5/IPRATROPIUM 0.5 INH SOL 3 ML VIAL.NEB. NEB PRN (22:50)
[2021-05-01] MEDS ORDERED: MEROPENEM 1 GM VIAL (RESTRICTED TO ID) IVPB ONE ×3 (01:03→17:55)
[2021-05-01] MEDS ORDERED: DEXTROSE 5%-WATER 100 ML IVPB ONE ×3 (01:03→17:55)
[2021-05-01] MEDS: LORazepam 0.5 MG TABLET PO SCH (01:15)
[2021-05-01] MEDS: MEROPENEM 1 GM in DEXTROSE 5%-WATER 100 ML IVPB SCH ×3 (01:16→18:04)
[2021-05-01] MEDS ORDERED: methaDONE HCL 10 MG TABLET ONE (04:59)
[2021-05-01] MEDS ORDERED: methaDONE HCL 40 MG DISPERSABLE TABLET ONE (04:59)
[2021-05-01] MEDS: methaDONE 40 MG, methaDONE 10 MG PO SCH (05:01)
[2021-05-01] MEDS: HEPARIN NA (PORCINE) 5,000 UNITS/ML 1ML VIAL SQ SCH ×3 (05:02→21:17)
[2021-05-01] MEDS: LORazepam 1 MG TABLET PO PRN (08:09)
[2021-05-01 09:28] LABS: BASO % 1.7 % (0-2.0); EOS % 4.7 % (0-4.5); HEMATOCRIT 32.4 % (32.4-45.2); HEMOGLOBIN 10.2 GM/dL (10.7-15.3); LYMPH % 27.3 % (8-40); MCH 29.1 pg (25.7-33.7); MCHC 31.4 g/dl (32.0-36.0); MEAN CELL VOLUME 92.6 fl (80-96); MEAN PLT VOLUME 8.3 fl (7.5-11.1); MONO % 8.4 % (3.8-10.2); NEUT % 57.9 % (42.8-82.8); PLATELET COUNT 777 10^3/uL (134-434); RDW 17.2 % (11.6-15.6)
[2021-05-01 10:11] LABS: ALBUMIN 2.3 g/dl (3.4-5.0); BILIRUBIN,TOTAL 0.2 mg/dL (0.2-1); BLOOD UREA NITROGEN 13.5 mg/dL (7-18); CALCIUM 10.1 mg/dL (8.5-10.1); CREATININE 1.5 mg/dL (0.55-1.3); MAGNESIUM 1.8 mg/dL (1.8-2.4); PHOSPHOROUS 5.3 mg/dL (2.5-4.9); TOT PROT 6.6 g/dl (6.4-8.2)
[2021-05-01] MEDS: GABAPENTIN 300 MG CAPSULE PO SCH ×2 (10:45→21:17)
[2021-05-01] MEDS: NICOTINE 14 MG/24 HOURS TOPICAL PATCH TD SCH (10:45)
[2021-05-01] MEDS: FAMOTIDINE 20 MG TABLET PO SCH (10:45)
[2021-05-01] MEDS: QUEtiapine FUMARATE 25 MG TABLET PO SCH ×2 (10:45→21:17)
[2021-05-01] MEDS: MULTIVITAMINS (DAILY MVI) TABLET (FP) PO SCH (10:45)
[2021-05-01] MEDS: FOLIC ACID 1 MG TABLET (FP) PO SCH (10:45)
[2021-05-01] MEDS: THIAMINE HCL 100 MG TABLET (FP) PO SCH (10:45)
[2021-05-01 11:54] VITALS: BMI 32.1
[2021-05-01] MEDS: DAPTOMYCIN 500 MG in SODIUM CHLORIDE 50 ML IVPB SCH (12:28)
[2021-05-01] MEDS ORDERED: diphenhydrAMINE HCL 25 MG CAPSULE (FP) PO ONE (13:30)
[2021-05-01] MEDS: SODIUM CHLORIDE 1,000 ML IV SCH (18:05)
[2021-05-01] MEDS: ONDANSETRON 4 MG/2 ML VIAL IVPUSH PRN (21:23)
[2021-05-01] MEDS: ALBUTEROL SO4 2.5/IPRATROPIUM 0.5 INH SOL 3 ML VIAL.NEB. NEB PRN (21:40)
[2021-05-02] MEDS ORDERED: MEROPENEM 1 GM VIAL (RESTRICTED TO ID) IVPB ONE ×3 (01:44→17:05)
[2021-05-02] MEDS ORDERED: DEXTROSE 5%-WATER 100 ML IVPB ONE ×3 (01:44→17:05)
[2021-05-02] MEDS: MEROPENEM 1 GM in DEXTROSE 5%-WATER 100 ML IVPB SCH ×3 (02:49→17:15)
[2021-05-02] MEDS: ONDANSETRON 4 MG/2 ML VIAL IVPUSH PRN (03:37)
[2021-05-02] MEDS ORDERED: methaDONE HCL 40 MG DISPERSABLE TABLET ONE (05:45)
[2021-05-02] MEDS ORDERED: methaDONE HCL 10 MG TABLET ONE (05:45)
[2021-05-02] MEDS: methaDONE 40 MG, methaDONE 10 MG PO SCH (05:57)
[2021-05-02] MEDS: HEPARIN NA (PORCINE) 5,000 UNITS/ML 1ML VIAL SQ SCH ×3 (06:01→21:36)
[2021-05-02 08:52] LABS: BASO % 1.5 % (0-2.0); EOS % 3.1 % (0-4.5); HEMATOCRIT 33.5 % (32.4-45.2); HEMOGLOBIN 10.6 GM/dL (10.7-15.3); LYMPH % 16.1 % (8-40); MCH 29.2 pg (25.7-33.7); MCHC 31.6 g/dl (32.0-36.0); MEAN CELL VOLUME 92.5 fl (80-96); MEAN PLT VOLUME 8.1 fl (7.5-11.1); MONO % 5.6 % (3.8-10.2); NEUT % 73.7 % (42.8-82.8); PLATELET COUNT 849 10^3/uL (134-434); RBC 3.63 M/mm3 (3.60-5.2); RDW 17.4 % (11.6-15.6); WHITE BLOOD COUNT 19.9 K/mm3 (4.0-10.0)
[2021-05-02 09:15] LABS: ALBUMIN 2.4 g/dl (3.4-5.0); BLOOD UREA NITROGEN 14.6 mg/dL (7-18); CALCIUM 10.7 mg/dL (8.5-10.1); MAGNESIUM 1.7 mg/dL (1.8-2.4)
[2021-05-02 09:18] LABS: PHOSPHOROUS 3.6 mg/dL (2.5-4.9)
[2021-05-02 09:19] LABS: CREATININE 1.6 mg/dL (0.55-1.3)
[2021-05-02 09:20] LABS: BILIRUBIN,TOTAL 0.2 mg/dL (0.2-1)
[2021-05-02] MEDS: QUEtiapine FUMARATE 25 MG TABLET PO SCH ×2 (09:43→21:36)
[2021-05-02] MEDS: GABAPENTIN 300 MG CAPSULE PO SCH ×2 (09:44→21:36)
[2021-05-02] MEDS: FOLIC ACID 1 MG TABLET (FP) PO SCH (09:44)
[2021-05-02] MEDS: NICOTINE 14 MG/24 HOURS TOPICAL PATCH TD SCH (09:44)
[2021-05-02] MEDS: MULTIVITAMINS (DAILY MVI) TABLET (FP) PO SCH (09:44)
[2021-05-02] MEDS: FAMOTIDINE 20 MG TABLET PO SCH (09:44)
[2021-05-02] MEDS: THIAMINE HCL 100 MG TABLET (FP) PO SCH (09:44)
[2021-05-02] MEDS: DAPTOMYCIN 500 MG in SODIUM CHLORIDE 50 ML IVPB SCH (11:02)
[2021-05-02] MEDS: SODIUM CHLORIDE 1,000 ML IV SCH ×2 (11:03→17:26)
[2021-05-02] MEDS ORDERED: cloNIDine HCL 0.1 MG TABLET PO ONE (12:45)
[2021-05-03] MEDS ORDERED: MEROPENEM 1 GM VIAL (RESTRICTED TO ID) IVPB ONE ×2 (02:33→09:17)
[2021-05-03] MEDS ORDERED: DEXTROSE 5%-WATER 100 ML IVPB ONE ×2 (02:34→09:17)
[2021-05-03] MEDS: MEROPENEM 1 GM in DEXTROSE 5%-WATER 100 ML IVPB SCH ×3 (02:53→20:08)
[2021-05-03] MEDS ORDERED: methaDONE HCL 10 MG TABLET ONE (05:23)
[2021-05-03] MEDS ORDERED: methaDONE HCL 40 MG DISPERSABLE TABLET ONE (05:23)
[2021-05-03] MEDS: methaDONE 40 MG, methaDONE 10 MG PO SCH (05:28)
[2021-05-03] MEDS: HEPARIN NA (PORCINE) 5,000 UNITS/ML 1ML VIAL SQ SCH ×3 (05:29→21:51)
[2021-05-03] MEDS: THIAMINE HCL 100 MG TABLET (FP) PO SCH (09:20)
[2021-05-03] MEDS: MULTIVITAMINS (DAILY MVI) TABLET (FP) PO SCH (09:21)
[2021-05-03] MEDS: NICOTINE 14 MG/24 HOURS TOPICAL PATCH TD SCH (09:21)
[2021-05-03] MEDS: FAMOTIDINE 20 MG TABLET PO SCH (09:21)
[2021-05-03] MEDS: QUEtiapine FUMARATE 25 MG TABLET PO SCH ×2 (09:21→21:51)
[2021-05-03] MEDS: FOLIC ACID 1 MG TABLET (FP) PO SCH (09:21)
[2021-05-03] MEDS: GABAPENTIN 300 MG CAPSULE PO SCH ×2 (09:21→21:51)
[2021-05-03 11:03] LABS: BASO % 1.5 % (0-2.0); EOS % 3.6 % (0-4.5); HEMATOCRIT 31.6 % (32.4-45.2); HEMOGLOBIN 10.3 GM/dL (10.7-15.3); LYMPH % 22.2 % (8-40); MCH 30.3 pg (25.7-33.7); MCHC 32.7 g/dl (32.0-36.0); MEAN CELL VOLUME 92.6 fl (80-96); MEAN PLT VOLUME 8.1 fl (7.5-11.1); MONO % 5.4 % (3.8-10.2); NEUT % 67.3 % (42.8-82.8); PLATELET COUNT 732 10^3/uL (134-434); RBC 3.42 M/mm3 (3.60-5.2); RDW 17.7 % (11.6-15.6); WHITE BLOOD COUNT 16.4 K/mm3 (4.0-10.0)
[2021-05-03 11:09] LABS: ALBUMIN 2.2 g/dl (3.4-5.0); MAGNESIUM 1.8 mg/dL (1.8-2.4)
[2021-05-03 11:11] LABS: CREATININE 1.5 mg/dL (0.55-1.3); PHOSPHOROUS 4.4 mg/dL (2.5-4.9)
[2021-05-03 11:12] LABS: BILIRUBIN,TOTAL 0.1 mg/dL (0.2-1); TOT PROT 6.6 g/dl (6.4-8.2)
[2021-05-03] MEDS: ONDANSETRON 4 MG/2 ML VIAL IVPUSH PRN ×2 (14:37→21:51)
[2021-05-03] MEDS: IRON POLYSACCHARIDES 150 MG CAPSULE PO SCH (14:37)
[2021-05-03] MEDS: SODIUM CHLORIDE 1,000 ML IV SCH (14:45)
[2021-05-03] MEDS ORDERED: DOCUSATE SODIUM 100 MG CAPSULE (FP) PO PRN (18:18)
[2021-05-03] MEDS ORDERED: BISACODYL 10 MG SUPP.RECT PR ONE (18:18)
[2021-05-03] MEDS ORDERED: SENNOSIDES 8.6MG TABLET (FP) PO PRN (18:18)
[2021-05-03 21:09] LABS: COCAINE, UR NEGATIVE (NEGATIVE); OPIATES, URI NEGATIVE (NEGATIVE); PHENCYCLIDINE,URINE NEGATIVE (NEGATIVE)
[2021-05-03 21:13] LABS: METHADONE, UR POSITIVE (NEGATIVE); URINE AMPHETAMINES NEGATIVE (NEGATIVE); URINE BARBITURATES NEGATIVE (NEGATIVE); URINE BENZODIAZEPINES POSITIVE (NEGATIVE)
[2021-05-04] MEDS ORDERED: MEROPENEM 1 GM VIAL (RESTRICTED TO ID) IVPB ONE ×3 (01:38→17:18)
[2021-05-04] MEDS ORDERED: DEXTROSE 5%-WATER 100 ML IVPB ONE ×3 (01:38→17:19)
[2021-05-04] MEDS: MEROPENEM 1 GM in DEXTROSE 5%-WATER 100 ML IVPB SCH ×3 (02:27→17:22)
[2021-05-04] MEDS ORDERED: methaDONE HCL 40 MG DISPERSABLE TABLET ONE (05:37)
[2021-05-04] MEDS ORDERED: methaDONE HCL 10 MG TABLET ONE (05:37)
[2021-05-04] MEDS: methaDONE 40 MG, methaDONE 10 MG PO SCH (05:40)
[2021-05-04] MEDS: SODIUM CHLORIDE 1,000 ML IV SCH ×2 (05:40→19:33)
[2021-05-04] MEDS: HEPARIN NA (PORCINE) 5,000 UNITS/ML 1ML VIAL SQ SCH ×3 (05:41→22:11)
[2021-05-04] MEDS: ONDANSETRON 4 MG/2 ML VIAL IVPUSH PRN ×2 (05:57→19:41)
[2021-05-04] MEDS: FOLIC ACID 1 MG TABLET (FP) PO SCH (09:59)
[2021-05-04] MEDS: GABAPENTIN 300 MG CAPSULE PO SCH ×2 (10:00→22:04)
[2021-05-04] MEDS: MULTIVITAMINS (DAILY MVI) TABLET (FP) PO SCH (10:00)
[2021-05-04] MEDS: FAMOTIDINE 20 MG TABLET PO SCH (10:00)
[2021-05-04] MEDS: IRON POLYSACCHARIDES 150 MG CAPSULE PO SCH (10:00)
[2021-05-04] MEDS: THIAMINE HCL 100 MG TABLET (FP) PO SCH (10:00)
[2021-05-04] MEDS: QUEtiapine FUMARATE 25 MG TABLET PO SCH ×2 (10:00→22:12)
[2021-05-04] MEDS: NICOTINE 14 MG/24 HOURS TOPICAL PATCH TD SCH (10:00)
[2021-05-04 13:56] LABS: BASO % 1.6 % (0-2.0); EOS % 6.3 % (0-4.5); HEMATOCRIT 34.1 % (32.4-45.2); HEMOGLOBIN 11.1 GM/dL (10.7-15.3); LYMPH % 26.9 % (8-40); MCH 29.7 pg (25.7-33.7); MCHC 32.5 g/dl (32.0-36.0); MEAN CELL VOLUME 91.5 fl (80-96); MEAN PLT VOLUME 7.9 fl (7.5-11.1); MONO % 9.4 % (3.8-10.2); NEUT % 55.8 % (42.8-82.8); PLATELET COUNT 693 10^3/uL (134-434); RBC 3.73 M/mm3 (3.60-5.2); RDW 17.3 % (11.6-15.6); WHITE BLOOD COUNT 13.2 K/mm3 (4.0-10.0)
[2021-05-04 14:10] LABS: ALBUMIN 2.2 g/dl (3.4-5.0); BLOOD UREA NITROGEN 20.6 mg/dL (7-18); CALCIUM 10.3 mg/dL (8.5-10.1)
[2021-05-04 14:13] LABS: CREATININE 1.2 mg/dL (0.55-1.3)
[2021-05-04 14:15] LABS: BILIRUBIN,TOTAL 0.2 mg/dL (0.2-1); TOT PROT 6.5 g/dl (6.4-8.2)
[2021-05-04 14:41] LABS: ANISOCYTOSIS 0; HELMET CELLS 0; HOWELL-JOLLY BODIES 0; MACROCYTOSIS 0; OVALOCYTE 0; PLATELET ESTIMATE INCREASED; ROULEAU 0; SICKELED CELLS 0; TARGET CELLS 0; TEAR DROP CELLS 0; TOXIC GRANULATION 0
[2021-05-05] MEDS: MEROPENEM 1 GM in DEXTROSE 5%-WATER 100 ML IVPB SCH ×2 (01:55→10:24)
[2021-05-05] MEDS ORDERED: methaDONE HCL 40 MG DISPERSABLE TABLET ONE (05:29)
[2021-05-05] MEDS ORDERED: methaDONE HCL 10 MG TABLET ONE (05:29)
[2021-05-05] MEDS: methaDONE 40 MG, methaDONE 10 MG PO SCH (05:31)
[2021-05-05] MEDS: HEPARIN NA (PORCINE) 5,000 UNITS/ML 1ML VIAL SQ SCH ×3 (05:37→21:36)
[2021-05-05] MEDS ORDERED: DEXTROSE 5%-WATER 100 ML IVPB ONE (10:07)
[2021-05-05] MEDS ORDERED: MEROPENEM 1 GM VIAL (RESTRICTED TO ID) IVPB ONE (10:07)
[2021-05-05] MEDS: ONDANSETRON 4 MG/2 ML VIAL IVPUSH PRN ×2 (10:24→21:45)
[2021-05-05] MEDS: QUEtiapine FUMARATE 25 MG TABLET PO SCH ×2 (10:25→21:35)
[2021-05-05] MEDS: NICOTINE 14 MG/24 HOURS TOPICAL PATCH TD SCH (10:25)
[2021-05-05] MEDS: SODIUM CHLORIDE 1,000 ML IV SCH ×3 (10:25→21:36)
[2021-05-05] MEDS: FAMOTIDINE 20 MG TABLET PO SCH (10:26)
[2021-05-05] MEDS: IRON POLYSACCHARIDES 150 MG CAPSULE PO SCH (10:26)
[2021-05-05] MEDS: THIAMINE HCL 100 MG TABLET (FP) PO SCH (10:26)
[2021-05-05] MEDS: MULTIVITAMINS (DAILY MVI) TABLET (FP) PO SCH (10:26)
[2021-05-05] MEDS: GABAPENTIN 300 MG CAPSULE PO SCH ×2 (10:26→21:33)
[2021-05-05] MEDS: FOLIC ACID 1 MG TABLET (FP) PO SCH (10:26)
[2021-05-05 11:10] LABS: ALBUMIN 2.3 g/dl (3.4-5.0); BLOOD UREA NITROGEN 20.6 mg/dL (7-18); CALCIUM 10.4 mg/dL (8.5-10.1)
[2021-05-05 11:14] LABS: CREATININE 1.3 mg/dL (0.55-1.3)
[2021-05-05 11:15] LABS: BILIRUBIN,TOTAL 0.1 mg/dL (0.2-1); TOT PROT 6.5 g/dl (6.4-8.2)
[2021-05-05 11:17] LABS: BASO % 1.5 % (0-2.0); EOS % 6.6 % (0-4.5); HEMATOCRIT 31.4 % (32.4-45.2); HEMOGLOBIN 10.3 GM/dL (10.7-15.3); LYMPH % 25.4 % (8-40); MCH 29.6 pg (25.7-33.7); MCHC 32.8 g/dl (32.0-36.0); MEAN CELL VOLUME 90.3 fl (80-96); MEAN PLT VOLUME 8.1 fl (7.5-11.1); MONO % 4.8 % (3.8-10.2); NEUT % 61.7 % (42.8-82.8); PLATELET COUNT 753 10^3/uL (134-434); RBC 3.48 M/mm3 (3.60-5.2); RDW 17.3 % (11.6-15.6); WHITE BLOOD COUNT 13.2 K/mm3 (4.0-10.0)
[2021-05-06] MEDS: ONDANSETRON 4 MG/2 ML VIAL IVPUSH PRN ×2 (04:19→11:40)
[2021-05-06] MEDS ORDERED: methaDONE HCL 10 MG TABLET ONE (04:59)
[2021-05-06] MEDS ORDERED: methaDONE HCL 40 MG DISPERSABLE TABLET ONE (04:59)
[2021-05-06] MEDS: methaDONE 40 MG, methaDONE 10 MG PO SCH (05:03)
[2021-05-06] MEDS: HEPARIN NA (PORCINE) 5,000 UNITS/ML 1ML VIAL SQ SCH ×3 (05:03→21:34)
[2021-05-06 09:45] LABS: BASO % 1.3 % (0-2.0); EOS % 6.7 % (0-4.5); HEMATOCRIT 30.1 % (32.4-45.2); HEMOGLOBIN 10.1 GM/dL (10.7-15.3); LYMPH % 31.4 % (8-40); MCH 30.3 pg (25.7-33.7); MCHC 33.4 g/dl (32.0-36.0); MEAN CELL VOLUME 90.8 fl (80-96); MEAN PLT VOLUME 7.9 fl (7.5-11.1); MONO % 10.3 % (3.8-10.2); NEUT % 50.3 % (42.8-82.8); PLATELET COUNT 702 10^3/uL (134-434); RBC 3.32 M/mm3 (3.60-5.2); RDW 17.4 % (11.6-15.6); WHITE BLOOD COUNT 10.4 K/mm3 (4.0-10.0)
[2021-05-06 10:03] LABS: ALBUMIN 2.2 g/dl (3.4-5.0); CALCIUM 9.9 mg/dL (8.5-10.1)
[2021-05-06 10:04] LABS: BLOOD UREA NITROGEN 21.5 mg/dL (7-18)
[2021-05-06 10:07] LABS: CREATININE 1.2 mg/dL (0.55-1.3)
[2021-05-06 10:08] LABS: BILIRUBIN,TOTAL 0.2 mg/dL (0.2-1)
[2021-05-06] MEDS: MULTIVITAMINS (DAILY MVI) TABLET (FP) PO SCH (10:20)
[2021-05-06] MEDS: GABAPENTIN 300 MG CAPSULE PO SCH ×2 (10:20→21:34)
[2021-05-06] MEDS: THIAMINE HCL 100 MG TABLET (FP) PO SCH (10:20)
[2021-05-06] MEDS: FOLIC ACID 1 MG TABLET (FP) PO SCH (10:20)
[2021-05-06] MEDS: FAMOTIDINE 20 MG TABLET PO SCH (10:20)
[2021-05-06] MEDS: QUEtiapine FUMARATE 25 MG TABLET PO SCH ×2 (10:20→21:34)
[2021-05-06] MEDS: NICOTINE 14 MG/24 HOURS TOPICAL PATCH TD SCH (10:21)
[2021-05-06] MEDS: IRON POLYSACCHARIDES 150 MG CAPSULE PO SCH (10:21)
[2021-05-06] MEDS: SODIUM CHLORIDE 1,000 ML IV SCH ×2 (14:33→19:21)
[2021-05-06] MEDS ORDERED: ERGOCALCIFEROL (VIT D2) 50,000 UNIT (1.25 MG) CAPSULE PO SCH (18:30)
[2021-05-07] MEDS ORDERED: methaDONE HCL 10 MG TABLET ONE (05:01)
[2021-05-07] MEDS ORDERED: methaDONE HCL 40 MG DISPERSABLE TABLET ONE (05:01)
[2021-05-07] MEDS: methaDONE 40 MG, methaDONE 10 MG PO SCH (05:02)
[2021-05-07] MEDS: HEPARIN NA (PORCINE) 5,000 UNITS/ML 1ML VIAL SQ SCH ×3 (05:02→22:11)
[2021-05-07] MEDS: SODIUM CHLORIDE 1,000 ML IV SCH ×3 (05:04→17:16)
[2021-05-07] MEDS ORDERED: PT OWN MED DRAWER 7, Y5N ONE (09:34)
[2021-05-07] MEDS: MULTIVITAMINS (DAILY MVI) TABLET (FP) PO SCH (09:37)
[2021-05-07] MEDS: IRON POLYSACCHARIDES 150 MG CAPSULE PO SCH (09:37)
[2021-05-07] MEDS: QUEtiapine FUMARATE 25 MG TABLET PO SCH ×2 (09:37→22:08)
[2021-05-07] MEDS: GABAPENTIN 300 MG CAPSULE PO SCH ×2 (09:37→22:08)
[2021-05-07] MEDS: FOLIC ACID 1 MG TABLET (FP) PO SCH (09:37)
[2021-05-07] MEDS: FAMOTIDINE 20 MG TABLET PO SCH (09:37)
[2021-05-07] MEDS: THIAMINE HCL 100 MG TABLET (FP) PO SCH (09:37)
[2021-05-07] MEDS: NICOTINE 14 MG/24 HOURS TOPICAL PATCH TD SCH (09:37)
[2021-05-07 09:55] LABS: BASO % 0.5 % (0-2.0); EOS % 5.2 % (0-4.5); HEMATOCRIT 30.5 % (32.4-45.2); HEMOGLOBIN 10.2 GM/dL (10.7-15.3); LYMPH % 33.8 % (8-40); MCHC 33.3 g/dl (32.0-36.0); MEAN CELL VOLUME 90.1 fl (80-96); MEAN PLT VOLUME 8.3 fl (7.5-11.1); MONO % 11.8 % (3.8-10.2); NEUT % 48.7 % (42.8-82.8); PLATELET COUNT 687 10^3/uL (134-434); RBC 3.38 M/mm3 (3.60-5.2); RDW 17.4 % (11.6-15.6); WHITE BLOOD COUNT 10.4 K/mm3 (4.0-10.0)
[2021-05-07] MEDS ORDERED: methaDONE HCL 40 MG DISPERSABLE TABLET PO SCH (10:00)
[2021-05-07] MEDS ORDERED: PATIENT'S OWN MEDICATION (NON-FORMULARY) (Multivitamin [Multivitamin] 1 EACH Tablet) PO SCH (10:00)
[2021-05-07] MEDS ORDERED: FOLIC ACID 1 MG TABLET (FP) PO SCH (10:00)
[2021-05-07 10:15] LABS: ALBUMIN 2.3 g/dl (3.4-5.0); BLOOD UREA NITROGEN 23.4 mg/dL (7-18); CALCIUM 9.6 mg/dL (8.5-10.1); MAGNESIUM 1.8 mg/dL (1.8-2.4)
[2021-05-07 10:18] LABS: CREATININE 1.1 mg/dL (0.55-1.3); PHOSPHOROUS 4.8 mg/dL (2.5-4.9)
[2021-05-07 10:20] LABS: BILIRUBIN,TOTAL 0.2 mg/dL (0.2-1); TOT PROT 6.3 g/dl (6.4-8.2)
[2021-05-07] MEDS: ONDANSETRON 4 MG/2 ML VIAL IVPUSH PRN (17:16)
[2021-05-07 20:13] LABS: PH,URINE 6.5 (5.0-8.0); URINE APPEARANCE CLEAR; URINE BILIRUBIN NEGATIVE (NEGATIVE); URINE COLOR YELLOW; URINE GLUCOSE (UA) NEGATIVE (NEGATIVE); URINE KETONE NEGATIVE (NEGATIVE); URINE LEUK ESTERASE NEGATIVE (NEGATIVE); URINE NITRITE NEGATIVE (NEGATIVE); URINE PROTEIN NEGATIVE (NEGATIVE); URINE UROBILINOGEN 0.2 mg/dL (0.2-1.0)
[2021-05-08] MEDS: SODIUM CHLORIDE 1,000 ML IV SCH (03:24)
[2021-05-08] MEDS ORDERED: methaDONE HCL 40 MG DISPERSABLE TABLET ONE (05:02)
[2021-05-08] MEDS ORDERED: methaDONE HCL 10 MG TABLET ONE (05:02)
[2021-05-08] MEDS: methaDONE 40 MG, methaDONE 10 MG PO SCH (05:03)
[2021-05-08] MEDS: HEPARIN NA (PORCINE) 5,000 UNITS/ML 1ML VIAL SQ SCH ×2 (05:04→13:07)
[2021-05-08] MEDS: ONDANSETRON 4 MG/2 ML VIAL IVPUSH PRN ×2 (06:11→14:37)
[2021-05-08] MEDS: IRON POLYSACCHARIDES 150 MG CAPSULE PO SCH (09:29)
[2021-05-08] MEDS: GABAPENTIN 300 MG CAPSULE PO SCH (09:29)
[2021-05-08] MEDS: NICOTINE 14 MG/24 HOURS TOPICAL PATCH TD SCH (09:29)
[2021-05-08] MEDS: QUEtiapine FUMARATE 25 MG TABLET PO SCH (09:29)
[2021-05-08] MEDS: THIAMINE HCL 100 MG TABLET (FP) PO SCH (09:30)
[2021-05-08] MEDS: FOLIC ACID 1 MG TABLET (FP) PO SCH (09:30)
[2021-05-08] MEDS: MULTIVITAMINS (DAILY MVI) TABLET (FP) PO SCH (09:30)
[2021-05-08] MEDS: FAMOTIDINE 20 MG TABLET PO SCH (09:30)
[2021-05-08 10:32] LABS: BASO % 1.9 % (0-2.0); EOS % 5.6 % (0-4.5); HEMATOCRIT 30.3 % (32.4-45.2); HEMOGLOBIN 10.1 GM/dL (10.7-15.3); LYMPH % 37.5 % (8-40); MCH 30.2 pg (25.7-33.7); MCHC 33.4 g/dl (32.0-36.0); MEAN CELL VOLUME 90.5 fl (80-96); MEAN PLT VOLUME 8.1 fl (7.5-11.1); MONO % 11.9 % (3.8-10.2); NEUT % 43.1 % (42.8-82.8); PLATELET COUNT 658 10^3/uL (134-434); RBC 3.35 M/mm3 (3.60-5.2); RDW 17.1 % (11.6-15.6); WHITE BLOOD COUNT 11.5 K/mm3 (4.0-10.0)
[2021-05-08 11:02] LABS: CALCIUM 9.9 mg/dL (8.5-10.1)
[2021-05-08 11:03] LABS: ALBUMIN 2.4 g/dl (3.4-5.0); BLOOD UREA NITROGEN 21.2 mg/dL (7-18); MAGNESIUM 1.8 mg/dL (1.8-2.4)
[2021-05-08 11:06] LABS: CREATININE 1.2 mg/dL (0.55-1.3); PHOSPHOROUS 5.6 mg/dL (2.5-4.9)
[2021-05-08 11:07] LABS: BILIRUBIN,TOTAL 0.2 mg/dL (0.2-1); TOT PROT 6.6 g/dl (6.4-8.2)
[2021-05-08 15:53] VITALS: BP 128/86; PULSE 99; TEMP 98.1
== END 2021-05-08 18:15 | disposition home or self-care (01) | DRG 720 ==
LOC: JER 19:21 → JERBED 19:58 → J5S 04-25 13:54
PROVIDERS: ADMIT Hospitalist; ATTEND Internal Medicine
PROC: HZ2ZZZZ Detoxification Services for Substance Abuse Treatment (ICD-10-PCS; principal; 2021-04-24)
PROC: 05HM33Z Insertion of Infusion Device into Right Internal Jugular Vein, Percutaneous Approach (ICD-10-PCS; 2021-04-24)
DX: A41.89 Other specified sepsis (principal); F10.230 Alcohol dependence with withdrawal, uncomplicated; F11.20 Opioid dependence, uncomplicated; E87.2 Acidosis; F13.20 Sedative, hypnotic or anxiolytic dependence, uncomplicated; N17.9 Acute kidney failure, unspecified; J69.0 Pneumonitis due to inhalation of food and vomit; R50.9 Fever, unspecified; R00.0 Tachycardia, unspecified; D72.829 Elevated white blood cell count, unspecified; G40.909 Epilepsy, unspecified, not intractable, without status epilepticus; K21.9 Gastro-esophageal reflux disease without esophagitis; F41.9 Anxiety disorder, unspecified; N39.0 Urinary tract infection, site not specified; D47.3 Essential (hemorrhagic) thrombocythemia; I10 Essential (primary) hypertension; J98.11 Atelectasis; R09.02 Hypoxemia; E66.9 Obesity, unspecified; Z68.32 Body mass index [BMI] 32.0-32.9, adult
CPT/HCPCS: 36415; 70450-TC; 71045-TC-FY; 76775-TC; 80053; 80307; 81003; 82550; 82553; 82570; 82607; 82728; 82746; 83540; 83550; 83605; 83735; 83970; 84100; 84156; 84436; 84443; 84466; 84484; 84703; 85025; 85610; 85730; 87040; 87086; 87186; 87804; 93005; 93010; 93306-TC; 94010; 94640; 94761; 99291; 99292; C9803; J0131; J0735; J0878; J1644; U0003; U0005

== ENCOUNTER 2021-06-06 01:01 | Inpatient (IN) | payer OTHER ==
[2021-06-06] MEDS ORDERED: FOLIC ACID INJECTION - 1 MG, THIAMINE HCL 100 MG, MULTIVIT INJECTION ADULT 10 ML in SOD... IVPB ONE (01:09)
[2021-06-06 01:31] VITALS: BMI 28.3
[2021-06-06] MEDS ORDERED: SODIUM CHLORIDE 0.9% 500 ML INFUS.BAG IV ONE ×3 (01:48→07:00)
[2021-06-06 01:54] LABS: BASO % 0.1 % (0-2.0); HEMATOCRIT 40.9 % (32.4-45.2); HEMOGLOBIN 13.5 GM/dL (10.7-15.3); LYMPH % 3.6 % (8-40); MCH 30.1 pg (25.7-33.7); MCHC 33.1 g/dl (32.0-36.0); MEAN CELL VOLUME 90.8 fl (80-96); MEAN PLT VOLUME 8.2 fl (7.5-11.1); MONO % 10.9 % (3.8-10.2); NEUT % 85.4 % (42.8-82.8); PLATELET COUNT 214 10^3/uL (134-434)
[2021-06-06 01:57] LABS: VENOUS BASE EXCESS -14.1 mmol/L (-2-2); VENOUS PCO2 37.6 mmHg (38-52)
[2021-06-06 02:04] LABS: INR 1.18 (0.83-1.09); PROTHROMBIN TIME (PATIENT) 14.5 SEC (9.7-13.0)
[2021-06-06 02:06] LABS: VENOUS PH 7.174 (7.310-7.410)
[2021-06-06 02:07] LABS: ACTIVATED PTT 31.6 SECONDS (25.2-36.5)
[2021-06-06 02:23] LABS: CHLORIDE 73 mmol/L (98-107); SODIUM 126 mmol/L (136-145)
[2021-06-06 02:26] LABS: ALBUMIN 1.8 g/dl (3.4-5.0); CALCIUM 7.6 mg/dL (8.5-10.1); CO2 14 mmol/L (21-32); GLUCOSE,RANDOM 100 mg/dL (74-106); LIPASE 348 U/L (73-393); MAGNESIUM 2.7 mg/dL (1.8-2.4)
[2021-06-06 02:29] LABS: CREATININE 4.2 mg/dL (0.55-1.3)
[2021-06-06 02:32] LABS: ALK PHOS 360 U/L (45-117); BILIRUBIN,TOTAL 0.6 mg/dL (0.2-1)
[2021-06-06] MEDS ORDERED: VANCOMYCIN 1 GM in D5W (PRE-DOCKED) 1,000 MG/250 ML IVPB ONE (02:51)
[2021-06-06] MEDS ORDERED: PIPERACILLIN/TAZOB 3.375 GM 3.375 GM in DEXTROSE 5%-WATER - 50 ML IVPB ONE (02:52)
[2021-06-06] MEDS ORDERED: VANCOMYCIN 1 GRAM (PRE-DOCKED) 1,000 MG/250 ML BAG IVPB ONE (03:20)
[2021-06-06] MEDS ORDERED: PIPERACILLIN/TAZOB 3.375 GM 3.375 GM/50 ML BAG IVPB ONE (03:20)
[2021-06-06 03:23] LABS: LACTIC ACID 17.9 mmol/L (0.4-2.0)
[2021-06-06 06:08] LABS: ANION GAP 39 MMOL/L (8-16); PHOSPHOROUS 9.1 mg/dL (2.5-4.9); SGOT/AST 6665 U/L (15-37); SGPT/ALT 1414 U/L (13-61)
[2021-06-06] MEDS ORDERED: LORazepam 2 MG/ML SDV VIAL IM ONE ×2 (07:28→10:16)
[2021-06-06] MEDS ORDERED: LORazepam 2 MG/ML SDV VIAL ONE ×2 (07:32→08:15)
[2021-06-06] MEDS ORDERED: ONDANSETRON *ODT* 4 MG TABLET ONE (07:37)
[2021-06-06] MEDS ORDERED: ONDANSETRON *ODT* 4 MG TABLET SL ONE (07:39)
[2021-06-06] MEDS ORDERED: SODIUM CHLORIDE 1,000 ML IV SCH (08:00)
[2021-06-06] MEDS ORDERED: SODIUM CHLORIDE 1,000 ML with POTASSIUM CHLORIDE 20 MEQ IV SCH (08:00)
[2021-06-06] MEDS ORDERED: ONDANSETRON 4 MG/2 ML VIAL IVPUSH ONE (08:42)
[2021-06-06] MEDS ORDERED: KCL 10 MEQ IVPB 10 MEQ/100 ML INFUS.BAG IVPB ONE (08:46)
[2021-06-06] MEDS ORDERED: ONDANSETRON 4 MG/2 ML VIAL ONE (08:46)
[2021-06-06] MEDS ORDERED: LORazepam 1 MG TABLET PO PRN ×3 (09:04→18:30)
[2021-06-06 09:32] LABS: CHLORIDE 82 mmol/L (98-107); SODIUM 130 mmol/L (136-145)
[2021-06-06 09:34] LABS: ALBUMIN 1.6 g/dl (3.4-5.0)
[2021-06-06 09:35] LABS: BLOOD UREA NITROGEN 20.1 mg/dL (7-18); CO2 15 mmol/L (21-32); GLUCOSE,RANDOM 99 mg/dL (74-106)
[2021-06-06 09:38] LABS: CREATININE 3.6 mg/dL (0.55-1.3)
[2021-06-06 09:39] LABS: BILIRUBIN,TOTAL 0.5 mg/dL (0.2-1); TOT PROT 4.8 g/dl (6.4-8.2)
[2021-06-06] MEDS: KCL 10 MEQ IVPB 10 MEQ/100 ML INFUS.BAG IVPB SCH ×8 (09:56→23:45)
[2021-06-06 10:04] LABS: ALK PHOS 312 U/L (45-117); ANION GAP 32 MMOL/L (8-16); CALCIUM 6.6 mg/dL (8.5-10.1); SGOT/AST 16084 U/L (15-37); SGPT/ALT 2001 U/L (13-61)
[2021-06-06 10:16] LABS: EPI CELLS >36 /uL (0-25.1); HYALINE CASTS 10 /uL (0-3.1); PH,URINE 5.5 (5.0-8.0); URINE APPEARANCE TURBID; URINE BACTERIA 6 /uL (0-1359); URINE BILIRUBIN NEGATIVE (NEGATIVE); URINE COLOR YELLOW; URINE GLUCOSE (UA) NEGATIVE (NEGATIVE); URINE KETONE NEGATIVE (NEGATIVE); URINE LEUK ESTERASE NEGATIVE (NEGATIVE); URINE NITRITE NEGATIVE (NEGATIVE); URINE PROTEIN 3+ (NEGATIVE); URINE RBC 6 /uL (0-23.9); URINE UROBILINOGEN 0.2 mg/dL (0.2-1.0); URINE WBC 53 /uL (0-25.8)
[2021-06-06 10:31] LABS: SARS COV-2 MOLECULAR Presumptive Positive (Negative)
[2021-06-06] MEDS: HEPARIN NA (PORCINE) 5,000 UNITS/ML 1ML VIAL SQ SCH ×3 (10:31→22:10)
[2021-06-06] MEDS ORDERED: LORazepam 2 MG TABLET PO SCH (11:00)
[2021-06-06 11:04] LABS: COCAINE, UR NEGATIVE (NEGATIVE); OPIATES, URI NEGATIVE (NEGATIVE); PHENCYCLIDINE,URINE NEGATIVE (NEGATIVE); URINE BARBITURATES NEGATIVE (NEGATIVE)
[2021-06-06 11:04] LABS: VENOUS BASE EXCESS -10.1 mmol/L (-2-2); VENOUS O2 SATURATION 87.9 % (70-80); VENOUS PCO2 28.5 mmHg (38-52); VENOUS PH 7.326 (7.310-7.410)
[2021-06-06 11:07] LABS: METHADONE, UR POSITIVE (NEGATIVE); URINE AMPHETAMINES NEGATIVE (NEGATIVE); URINE BENZODIAZEPINES POSITIVE (NEGATIVE)
[2021-06-06] MEDS ORDERED: TRIMETHOBENZAMIDE HCL 200MG/2ML INJ IM PRN (12:03)
[2021-06-06 12:06] LABS: LACTIC ACID 13.1 mmol/L (0.4-2.0)
[2021-06-06] MEDS ORDERED: AZITHROMYCIN IVPB 500 MG/250 ML BAG IVPB SCH (12:15)
[2021-06-06] MEDS: TRIMETHOBENZAMIDE HCL 200MG/2ML INJ IM PRN ×2 (12:30→23:24)
[2021-06-06 13:25] LABS: INR 1.39 (0.83-1.09); PROTHROMBIN TIME (PATIENT) 16.7 SEC (9.7-13.0)
[2021-06-06 13:33] LABS: IRON SERUM 37 ug/dL (50-175); TOTAL IRON BINDING CAPACITY 159 ug/dL (250-450)
[2021-06-06] MEDS ORDERED: PIPERACILLIN/TAZOBACTAM 2.25 GM VIAL IVPB ONE ×2 (15:05→17:17)
[2021-06-06] MEDS ORDERED: DEXTROSE 5%-WATER - 50 ML IVPB ONE ×2 (15:05→17:17)
[2021-06-06] MEDS: LORazepam 2 MG/ML SDV VIAL IVPUSH PRN ×2 (15:11→17:50)
[2021-06-06] MEDS: PIPERACILLIN/TAZOB 2.25 GM 2.25 GM in DEXTROSE 5%-WATER - 50 ML IVPB SCH ×2 (15:12→21:06)
[2021-06-06] MEDS: SODIUM CHLORIDE 0.9%/KCL 20 MEQ/1,000 ML INFUS.BAG IV SCH (15:12)
[2021-06-06] MEDS: MUPIROCIN 2% TOPICAL OINTMENT FOR DECOLONIZATION NS SCH ×2 (15:12→22:10)
[2021-06-06 17:16] LABS: LACTIC ACID 7.1 mmol/L (0.4-2.0)
[2021-06-06] MEDS ORDERED: KCL 10 MEQ IVPB 10 MEQ/100 ML INFUS.BAG IVPB SCH (20:30)
[2021-06-06 21:45] LABS: CHLORIDE 89 mmol/L (98-107); SODIUM 130 mmol/L (136-145)
[2021-06-06] MEDS ORDERED: CHLORHEXIDINE GLUCONATE 4% CLEANSER FOR DECOLONIZATION TP SCH (22:00)
[2021-06-06 22:02] LABS: ALBUMIN 1.4 g/dl (3.4-5.0); ANION GAP 19 MMOL/L (8-16); BLOOD UREA NITROGEN 22.9 mg/dL (7-18); CO2 22 mmol/L (21-32); GLUCOSE,RANDOM 51 mg/dL (74-106)
[2021-06-06 22:05] LABS: CREATININE 3.9 mg/dL (0.55-1.3)
[2021-06-06] MEDS: LORazepam 1 MG TABLET PO SCH (22:11)
[2021-06-06 22:31] LABS: ALK PHOS 274 U/L (45-117); BILIRUBIN,TOTAL 0.8 mg/dL (0.2-1); CALCIUM 5.8 mg/dL (8.5-10.1); SGOT/AST 7525 U/L (15-37); SGPT/ALT 1463 U/L (13-61)
[2021-06-06] MEDS ORDERED: CALCIUM GLUCONATE 10% - 1,000 MG/10 ML VIAL IVPB ONE (22:50)
[2021-06-07] MEDS ORDERED: D5-1/2NS+20 MEQ KCL - 20 MEQ/1,000 ML INFUS.BAG IV SCH (00:04)
[2021-06-07] MEDS ORDERED: DEXTROSE 50%-WATER - 25 GM/50 ML VIAL IVPUSH ONE (00:25)
[2021-06-07] MEDS ORDERED: DEXTROSE 50%-WATER 25 GM/50 ML DISP.SYRIN ONE (00:34)
[2021-06-07] MEDS: KCL 10 MEQ IVPB 10 MEQ/100 ML INFUS.BAG IVPB SCH ×2 (00:41→01:19)
[2021-06-07] MEDS ORDERED: DEXTROSE 5%-WATER - 50 ML IVPB ONE ×3 (00:57→17:42)
[2021-06-07] MEDS ORDERED: PIPERACILLIN/TAZOBACTAM 2.25 GM VIAL IVPB ONE ×3 (00:57→17:42)
[2021-06-07] MEDS: PIPERACILLIN/TAZOB 2.25 GM 2.25 GM in DEXTROSE 5%-WATER - 50 ML IVPB SCH ×3 (01:21→17:50)
[2021-06-07] MEDS: LORazepam 1 MG TABLET PO SCH ×3 (04:57→16:08)
[2021-06-07] MEDS: HEPARIN NA (PORCINE) 5,000 UNITS/ML 1ML VIAL SQ SCH ×3 (06:02→22:04)
[2021-06-07 06:52] LABS: BASO % 0.1 % (0-2.0); EOS % 0.2 % (0-4.5); HEMATOCRIT 28.8 % (32.4-45.2); HEMOGLOBIN 9.5 GM/dL (10.7-15.3); LYMPH % 11.3 % (8-40); MCH 30.2 pg (25.7-33.7); MCHC 33.1 g/dl (32.0-36.0); MEAN CELL VOLUME 91.5 fl (80-96); MEAN PLT VOLUME 8.9 fl (7.5-11.1); MONO % 7.5 % (3.8-10.2); NEUT % 80.9 % (42.8-82.8); PLATELET COUNT 140 10^3/uL (134-434); RBC 3.15 M/mm3 (3.60-5.2); RDW 17.8 % (11.6-15.6); WHITE BLOOD COUNT 14.2 K/mm3 (4.0-10.0)
[2021-06-07 06:58] LABS: INR 1.52 (0.83-1.09); PROTHROMBIN TIME (PATIENT) 18.2 SEC (9.7-13.0)
[2021-06-07 07:06] LABS: CHLORIDE 94 mmol/L (98-107); SODIUM 132 mmol/L (136-145)
[2021-06-07 07:09] LABS: ALBUMIN 1.3 g/dl (3.4-5.0); ANION GAP 14 MMOL/L (8-16); BLOOD UREA NITROGEN 25.3 mg/dL (7-18); CO2 23 mmol/L (21-32); GLUCOSE,RANDOM 55 mg/dL (74-106); MAGNESIUM 1.4 mg/dL (1.8-2.4)
[2021-06-07 07:12] LABS: CREATININE 4.2 mg/dL (0.55-1.3); PHOSPHOROUS 3.3 mg/dL (2.5-4.9)
[2021-06-07 07:15] LABS: ALK PHOS 287 U/L (45-117)
[2021-06-07 07:41] LABS: BILIRUBIN,TOTAL 0.9 mg/dL (0.2-1); CALCIUM 6.3 mg/dL (8.5-10.1); LACTIC ACID 4.3 mmol/L (0.4-2.0); SGOT/AST 3686 U/L (15-37); SGPT/ALT 1137 U/L (13-61)
[2021-06-07] MEDS ORDERED: POTASSIUM CHLORIDE ORAL LIQUID 20 MEQ/15 ML PO ONE ×2 (07:54→11:18)
[2021-06-07] MEDS ORDERED: SODIUM CHLORIDE 0.9% 500 ML INFUS.BAG IV ONE ×2 (08:18→13:06)
[2021-06-07] MEDS ORDERED: MAGNESIUM SULF 50% (8.12 MEQ/2 ML-1 GM VIAL) IVPB ONE (08:50)
[2021-06-07] MEDS ORDERED: methaDONE HCL 10 MG TABLET (FOR DETOX USE ONLY) PO ONE (09:27)
[2021-06-07] MEDS: MUPIROCIN 2% TOPICAL OINTMENT FOR DECOLONIZATION NS SCH (09:44)
[2021-06-07] MEDS: POTASSIUM CHLORIDE TABS 20 MEQ TABLET.ER (FP) PO ONE ×2 (09:44→10:17)
[2021-06-07] MEDS ORDERED: AZITHROMYCIN IVPB 500 MG/250 ML BAG IVPB SCH (10:00)
[2021-06-07] MEDS ORDERED: CEFTRIAXONE 1 GM in DEXTROSE 5%-WATER - 50 ML IVPB ONE (10:00)
[2021-06-07] MEDS ORDERED: methaDONE HCL 10 MG TABLET ONE (10:15)
[2021-06-07] MEDS ORDERED: PT OWN MED DRAWER 7, Y5N ONE (12:28)
[2021-06-07] MEDS: TRIMETHOBENZAMIDE HCL 200MG/2ML INJ IM PRN ×2 (12:34→12:35)
[2021-06-07] MEDS: SODIUM CHLORIDE 0.9%/KCL 20 MEQ/1,000 ML INFUS.BAG IV SCH ×3 (12:44→23:08)
[2021-06-07 14:08] LABS: SARS-CoV-2 NAA Not Detected (Not Detected)
[2021-06-07] MEDS: FOLIC ACID 1 MG TABLET (FP) PO SCH ×2 (15:52→16:07)
[2021-06-07] MEDS: THIAMINE HCL 100 MG TABLET (FP) PO SCH ×2 (15:52→16:07)
[2021-06-07] MEDS ORDERED: TRIMETHOBENZAMIDE HCL 200MG/2ML INJ IM PRN (18:29)
[2021-06-07] MEDS ORDERED: CHLORHEXIDINE GLUCONATE 4% CLEANSER FOR DECOLONIZATION TP SCH (22:00)
[2021-06-07] MEDS ORDERED: MUPIROCIN 2% TOPICAL OINTMENT FOR DECOLONIZATION NS SCH (22:00)
[2021-06-07] MEDS ORDERED: LORazepam 1 MG TABLET PO SCH (23:00)
[2021-06-08] MEDS ORDERED: PIPERACILLIN/TAZOBACTAM 2.25 GM VIAL IVPB ONE ×3 (01:06→18:08)
[2021-06-08] MEDS ORDERED: DEXTROSE 5%-WATER - 50 ML IVPB ONE ×3 (01:06→18:08)
[2021-06-08] MEDS: PIPERACILLIN/TAZOB 2.25 GM 2.25 GM in DEXTROSE 5%-WATER - 50 ML IVPB SCH ×3 (01:24→18:16)
[2021-06-08] MEDS ORDERED: LORazepam 0.5 MG TABLET PO ONE (01:45)
[2021-06-08] MEDS: LORazepam 1 MG TABLET PO SCH ×3 (04:00→17:06)
[2021-06-08] MEDS ORDERED: methaDONE HCL 10 MG TABLET PO ONE (04:59)
[2021-06-08] MEDS ORDERED: LORazepam 1 MG TABLET PO SCH ×2 (05:00)
[2021-06-08] MEDS: HEPARIN NA (PORCINE) 5,000 UNITS/ML 1ML VIAL SQ SCH ×2 (05:58→14:47)
[2021-06-08] MEDS ORDERED: PT OWN MED DRAWER 7, Y5N ONE (06:56)
[2021-06-08] MEDS: THIAMINE HCL 100 MG TABLET (FP) PO SCH (09:50)
[2021-06-08] MEDS: FOLIC ACID 1 MG TABLET (FP) PO SCH (09:50)
[2021-06-08] MEDS ORDERED: MULTIVITAMINS (DAILY MVI) TABLET (FP) PO SCH (10:00)
[2021-06-08] MEDS: TRIMETHOBENZAMIDE HCL 200MG/2ML INJ IM PRN ×2 (10:01→16:10)
[2021-06-08 10:36] LABS: BASO % 0.5 % (0-2.0); EOS % 1.3 % (0-4.5); HEMATOCRIT 28.5 % (32.4-45.2); HEMOGLOBIN 9.5 GM/dL (10.7-15.3); LYMPH % 13.9 % (8-40); MCH 30.5 pg (25.7-33.7); MCHC 33.4 g/dl (32.0-36.0); MEAN CELL VOLUME 91.3 fl (80-96); MEAN PLT VOLUME 8.7 fl (7.5-11.1); MONO % 6.2 % (3.8-10.2); NEUT % 78.1 % (42.8-82.8); PLATELET COUNT 152 10^3/uL (134-434); RBC 3.12 M/mm3 (3.60-5.2)
[2021-06-08 10:42] LABS: INR 1.6 (0.83-1.09); PROTHROMBIN TIME (PATIENT) 19.1 SEC (9.7-13.0)
[2021-06-08 11:00] LABS: CHLORIDE 102 mmol/L (98-107); SODIUM 136 mmol/L (136-145)
[2021-06-08 11:04] LABS: ALBUMIN 1.5 g/dl (3.4-5.0); ANION GAP 12 MMOL/L (8-16); CALCIUM 7.2 mg/dL (8.5-10.1); CO2 21 mmol/L (21-32); GLUCOSE,RANDOM 89 mg/dL (74-106)
[2021-06-08 11:07] LABS: CREATININE 4.1 mg/dL (0.55-1.3); SGPT/ALT 783 U/L (13-61)
[2021-06-08 11:09] LABS: BILIRUBIN,TOTAL 1.1 mg/dL (0.2-1); TOT PROT 4.4 g/dl (6.4-8.2)
[2021-06-08] MEDS: SODIUM CHLORIDE 0.9%/KCL 20 MEQ/1,000 ML INFUS.BAG IV SCH ×2 (11:09→19:01)
[2021-06-08 11:21] LABS: ALK PHOS 412 U/L (45-117); SGOT/AST 1190 U/L (15-37)
[2021-06-08 12:37] LABS: MAGNESIUM 1.7 mg/dL (1.8-2.4)
[2021-06-08 12:41] LABS: PHOSPHOROUS 2.9 mg/dL (2.5-4.9)
[2021-06-08] MEDS ORDERED: POTASSIUM CHLORIDE ORAL LIQUID 20 MEQ/15 ML PO ONE ×2 (13:00→18:00)
[2021-06-08] MEDS: MAGNESIUM 2GM/50ML STERILE WATER IVPB IVPB SCH ×2 (14:49→16:16)
[2021-06-08 15:44] LABS: EPI CELLS 4 /uL (0-25.1); HYALINE CASTS 1 /uL (0-3.1); PH,URINE 5.5 (5.0-8.0); URINE APPEARANCE CLEAR; URINE BACTERIA 1 /uL (0-1359); URINE BILIRUBIN NEGATIVE (NEGATIVE); URINE COLOR YELLOW; URINE GLUCOSE (UA) NEGATIVE (NEGATIVE); URINE KETONE NEGATIVE (NEGATIVE); URINE LEUK ESTERASE NEGATIVE (NEGATIVE); URINE NITRITE NEGATIVE (NEGATIVE); URINE PROTEIN 1+ (NEGATIVE); URINE RBC 46 /uL (0-23.9); URINE UROBILINOGEN 0.2 mg/dL (0.2-1.0); URINE WBC 7 /uL (0-25.8)
[2021-06-08] MEDS ORDERED: POTASSIUM CHLORIDE TABS 20 MEQ TABLET.ER (FP) PO ONE (17:21)
[2021-06-08 17:56] LABS: HEPATITIS B SURFACE AG CONFIRM CONFIRMED (NONREACTIVE)
[2021-06-08 18:59] VITALS: BP 130/72; PULSE 132; TEMP 98
[2021-06-09] MEDS ORDERED: LORazepam 0.5 MG TABLET PO PRN ×4
[2021-06-09] MEDS ORDERED: LORazepam 0.5 MG TABLET PO SCH ×3 (05:00)
[2021-06-10] MEDS ORDERED: LORazepam 0.5 MG TABLET PO ONE ×3 (05:00)
== END 2021-06-08 19:32 | disposition left against medical advice (07) | DRG 279 ==
LOC: JER 01:01 → JERBED 04:50 → JICU 11:09 → J8W 06-07 18:13
PROVIDERS: ADMIT Internal Medicine Pulmonary Disease; ATTEND Internal Medicine
PROC: 02HV33Z Insertion of Infusion Device into Superior Vena Cava, Percutaneous Approach (ICD-10-PCS; principal; 2021-06-06)
DX: K72.00 Acute and subacute hepatic failure without coma (principal); U07.1 COVID-19; N17.0 Acute kidney failure with tubular necrosis; B19.10 Unspecified viral hepatitis B without hepatic coma; E87.2 Acidosis; M62.82 Rhabdomyolysis; R57.9 Shock, unspecified; E87.1 Hypo-osmolality and hyponatremia; F13.20 Sedative, hypnotic or anxiolytic dependence, uncomplicated; F10.239 Alcohol dependence with withdrawal, unspecified; F11.23 Opioid dependence with withdrawal; K76.0 Fatty (change of) liver, not elsewhere classified; S30.0XXA Contusion of lower back and pelvis, initial encounter; W06.XXXA Fall from bed, initial encounter; Y93.9 Activity, unspecified; Y92.89 Other specified places as the place of occurrence of the external cause; Y99.9 Unspecified external cause status; R74.01 Elevation of levels of liver transaminase levels; D72.829 Elevated white blood cell count, unspecified; E87.6 Hypokalemia; K21.9 Gastro-esophageal reflux disease without esophagitis; G93.41 Metabolic encephalopathy; E86.0 Dehydration; G40.909 Epilepsy, unspecified, not intractable, without status epilepticus
CPT/HCPCS: 36415; 70450-TC; 71250-TC; 72125-TC; 74176-TC; 80053; 80307; 81003; 82140; 82550; 82553; 82570; 82803; 82962; 83540; 83550; 83605; 83690; 83735; 84100; 84132; 84156; 84443; 84484; 84703; 85025; 85610; 85730; 86140; 86704; 86705; 86803; 86850; 86900; 86901; 87040; 87086; 87340; 87516; 87522; 93005; 93010; 93975; 99291; 99292; C9803; J1644; Q0162; U0003; U0005

== ENCOUNTER 2021-06-09 04:03 | Inpatient (IN) | payer OTHER ==
[2021-06-09] MEDS ORDERED: chlordiazePOXIDE HCL 25 MG CAPSULE PO ONE (05:00)
[2021-06-09] MEDS ORDERED: LORazepam 2 MG/ML SDV VIAL IVPB ONE (05:53)
[2021-06-09] MEDS ORDERED: TRIMETHOBENZAMIDE HCL 200MG/2ML INJ IM ONE (05:54)
[2021-06-09] MEDS ORDERED: LORazepam 2 MG/ML SDV VIAL ONE (05:57)
[2021-06-09] MEDS ORDERED: SODIUM CHLORIDE 0.9% 500 ML INFUS.BAG IV ONE (05:58)
[2021-06-09] MEDS ORDERED: MAG HYDROX/AL HYDROX/SIMETH 30 ML UNIT-DOSE CUP PO ONE (06:16)
[2021-06-09] MEDS ORDERED: MAG HYDROX/AL HYDROX/SIMETH 30 ML UNIT-DOSE CUP ONE (06:16)
[2021-06-09 06:27] LABS: HEMATOCRIT 30.8 % (32.4-45.2); HEMOGLOBIN 10.2 GM/dL (10.7-15.3); MCH 30.7 pg (25.7-33.7); MCHC 33.1 g/dl (32.0-36.0); MEAN CELL VOLUME 92.8 fl (80-96); MEAN PLT VOLUME 8.5 fl (7.5-11.1); PLATELET COUNT 167 10^3/uL (134-434); RBC 3.32 M/mm3 (3.60-5.2); RDW 17.7 % (11.6-15.6); WHITE BLOOD COUNT 16.8 K/mm3 (4.0-10.0)
[2021-06-09 06:34] LABS: INR 1.41 (0.83-1.09); PROTHROMBIN TIME (PATIENT) 16.9 SEC (9.7-13.0)
[2021-06-09 06:35] LABS: VENOUS O2 SATURATION 67.5 % (70-80); VENOUS PCO2 38.5 mmHg (38-52); VENOUS PH 7.287 (7.310-7.410)
[2021-06-09 06:37] LABS: ACTIVATED PTT 27.8 SECONDS (25.2-36.5)
[2021-06-09 06:41] LABS: CHLORIDE 101 mmol/L (98-107); SODIUM 134 mmol/L (136-145)
[2021-06-09 06:43] LABS: ANION GAP 15 MMOL/L (8-16); BLOOD UREA NITROGEN 20.2 mg/dL (7-18); CALCIUM 7.2 mg/dL (8.5-10.1); CO2 19 mmol/L (21-32)
[2021-06-09 06:44] LABS: ALBUMIN 1.6 g/dl (3.4-5.0); GLUCOSE,RANDOM 114 mg/dL (74-106); MAGNESIUM 2.6 mg/dL (1.8-2.4)
[2021-06-09 06:46] LABS: SGPT/ALT 627 U/L (13-61)
[2021-06-09 06:47] LABS: CREATININE 4.1 mg/dL (0.55-1.3); SGOT/AST 480 U/L (15-37)
[2021-06-09 06:49] LABS: BILIRUBIN,TOTAL 0.7 mg/dL (0.2-1); PHOSPHOROUS 2.7 mg/dL (2.5-4.9); TOT PROT 4.8 g/dl (6.4-8.2)
[2021-06-09] MEDS ORDERED: POTASSIUM CHLORIDE TABS 20 MEQ TABLET.ER (FP) PO ONE ×2 (07:00→07:14)
[2021-06-09 07:04] LABS: LACTIC ACID 2.7 mmol/L (0.4-2.0)
[2021-06-09 07:41] LABS: ALK PHOS 465 U/L (45-117)
[2021-06-09] MEDS ORDERED: ACETAMINOPHEN 325 MG TABLET (FP) PO PRN (07:55)
[2021-06-09] MEDS ORDERED: methaDONE HCL 10 MG TABLET PO ONE (08:02)
[2021-06-09] MEDS ORDERED: methaDONE HCL 10 MG TABLET ONE (08:26)
[2021-06-09] MEDS ORDERED: HEPARIN NA (PORCINE) 5,000 UNITS/ML 1ML VIAL ONE (08:26)
[2021-06-09] MEDS ORDERED: LORazepam 0.5 MG TABLET ONE (08:26)
[2021-06-09] MEDS: LACTATED RINGERS SOLUTION 1,000 ML/1,000 ML INFUS.BAG IV SCH (08:31)
[2021-06-09] MEDS: HEPARIN NA (PORCINE) 5,000 UNITS/ML 1ML VIAL SQ SCH ×3 (08:31→21:36)
[2021-06-09] MEDS: LORazepam 0.5 MG TABLET PO SCH ×3 (08:31→20:37)
[2021-06-09 08:51] LABS: ANISOCYTOSIS 1+; MACROCYTOSIS 0; PLATELET ESTIMATE NORMAL
[2021-06-09] MEDS ORDERED: PIPERACILLIN/TAZOB 2.25 GM 2.25 GM in DEXTROSE 5%-WATER - 50 ML IVPB SCH (10:00)
[2021-06-09] MEDS ORDERED: DEXTROSE 5%-WATER - 50 ML IVPB ONE ×2 (11:10→16:50)
[2021-06-09] MEDS ORDERED: PIPERACILLIN/TAZOBACTAM 2.25 GM VIAL IVPB ONE ×2 (11:10→16:50)
[2021-06-09] MEDS: PIPERACILLIN/TAZOB 2.25 GM 2.25 GM in DEXTROSE 5%-WATER - 50 ML IVPB SCH ×3 (11:33→18:18)
[2021-06-09 13:27] LABS: INR 1.49 (0.83-1.09); PROTHROMBIN TIME (PATIENT) 18.1 SEC (9.7-13.0)
[2021-06-09 13:30] LABS: ACTIVATED PTT 28.2 SECONDS (25.2-36.5)
[2021-06-09 15:34] VITALS: BMI 28.5
[2021-06-09] MEDS: LORazepam 1 MG TABLET PO PRN (16:57)
[2021-06-10] MEDS ORDERED: PIPERACILLIN/TAZOBACTAM 2.25 GM VIAL IVPB ONE ×2 (01:24→19:00)
[2021-06-10] MEDS ORDERED: DEXTROSE 5%-WATER - 50 ML IVPB ONE ×2 (01:24→19:00)
[2021-06-10] MEDS: LORazepam 1 MG TABLET PO PRN ×3 (02:08→22:12)
[2021-06-10] MEDS: PIPERACILLIN/TAZOB 2.25 GM 2.25 GM in DEXTROSE 5%-WATER - 50 ML IVPB SCH ×3 (02:08→19:03)
[2021-06-10] MEDS: LORazepam 0.5 MG TABLET PO SCH ×4 (02:37→20:46)
[2021-06-10] MEDS: HEPARIN NA (PORCINE) 5,000 UNITS/ML 1ML VIAL SQ SCH ×3 (05:58→22:14)
[2021-06-10 17:16] LABS: HEMATOCRIT 28.8 % (32.4-45.2); HEMOGLOBIN 9.3 GM/dL (10.7-15.3); MCH 30.8 pg (25.7-33.7); MCHC 32.4 g/dl (32.0-36.0); MEAN CELL VOLUME 94.9 fl (80-96); MEAN PLT VOLUME 8.9 fl (7.5-11.1); PLATELET COUNT 169 10^3/uL (134-434); RBC 3.04 M/mm3 (3.60-5.2); WHITE BLOOD COUNT 16.7 K/mm3 (4.0-10.0)
[2021-06-10 17:49] LABS: ANISOCYTOSIS 0; HELMET CELLS 0; HOWELL-JOLLY BODIES 0; MACROCYTOSIS 0; OVALOCYTE 0; PLATELET ESTIMATE NORMAL; ROULEAU 0; SICKELED CELLS 0; TARGET CELLS 0; TEAR DROP CELLS 0; TOXIC GRANULATION 0
[2021-06-10] MEDS: LACTATED RINGERS SOLUTION 1,000 ML/1,000 ML INFUS.BAG IV SCH (19:29)
[2021-06-10] MEDS: POTASSIUM CHLORIDE 10 MEQ in SODIUM CHLORIDE 1,000 ML IV SCH (19:32)
[2021-06-10] MEDS: KCL 10 MEQ IVPB 10 MEQ/100 ML INFUS.BAG IVPB SCH ×2 (19:33→21:39)
[2021-06-10 20:30] LABS: EPI CELLS 6 /uL (0-25.1); HYALINE CASTS 0 /uL (0-3.1); PH,URINE 5.5 (5.0-8.0); URINE APPEARANCE CLEAR; URINE BACTERIA 16 /uL (0-1359); URINE BILIRUBIN NEGATIVE (NEGATIVE); URINE COLOR YELLOW; URINE GLUCOSE (UA) NEGATIVE (NEGATIVE); URINE KETONE NEGATIVE (NEGATIVE); URINE LEUK ESTERASE NEGATIVE (NEGATIVE); URINE NITRITE NEGATIVE (NEGATIVE); URINE PROTEIN 1+ (NEGATIVE); URINE RBC 29 /uL (0-23.9); URINE UROBILINOGEN 0.2 mg/dL (0.2-1.0); URINE WBC 3 /uL (0-25.8)
[2021-06-10 20:33] LABS: COCAINE, UR NEGATIVE (NEGATIVE); OPIATES, URI NEGATIVE (NEGATIVE); URINE AMPHETAMINES NEGATIVE (NEGATIVE); URINE BARBITURATES NEGATIVE (NEGATIVE)
[2021-06-10 20:34] LABS: PHENCYCLIDINE,URINE NEGATIVE (NEGATIVE)
[2021-06-10 20:35] LABS: METHADONE, UR POSITIVE (NEGATIVE); URINE BENZODIAZEPINES POSITIVE (NEGATIVE)
[2021-06-10] MEDS: CLOTRIMAZOLE 1% CREAM TP SCH (22:14)
[2021-06-10] MEDS ORDERED: KCL 10 MEQ IVPB 10 MEQ/100 ML INFUS.BAG IVPB SCH (22:15)
[2021-06-11] MEDS: LORazepam 0.5 MG TABLET PO SCH ×4 (02:58→20:48)
[2021-06-11] MEDS: KCL 10 MEQ IVPB 10 MEQ/100 ML INFUS.BAG IVPB SCH (03:04)
[2021-06-11] MEDS: HEPARIN NA (PORCINE) 5,000 UNITS/ML 1ML VIAL SQ SCH ×3 (06:42→22:43)
[2021-06-11] MEDS: LORazepam 1 MG TABLET PO PRN ×2 (06:43→22:52)
[2021-06-11] MEDS ORDERED: PT OWN MED DRAWER 7, Y5N ONE (09:01)
[2021-06-11] MEDS: CLOTRIMAZOLE 1% CREAM TP SCH ×2 (09:19→22:43)
[2021-06-11] MEDS: LACTATED RINGERS SOLUTION 1,000 ML/1,000 ML INFUS.BAG IV SCH (09:19)
[2021-06-11 11:49] LABS: ALBUMIN 1.4 g/dl (3.4-5.0); BLOOD UREA NITROGEN 24.5 mg/dL (7-18); CALCIUM 7.4 mg/dL (8.5-10.1)
[2021-06-11 11:54] LABS: CREATININE 3.9 mg/dL (0.55-1.3)
[2021-06-11 11:55] LABS: BILIRUBIN,TOTAL 0.9 mg/dL (0.2-1); PHOSPHOROUS 2.5 mg/dL (2.5-4.9); TOT PROT 4.5 g/dl (6.4-8.2)
[2021-06-11 12:03] LABS: HEMATOCRIT 22.2 % (32.4-45.2); MCH 31.2 pg (25.7-33.7); MEAN CELL VOLUME 100.6 fl (80-96); MEAN PLT VOLUME 8.9 fl (7.5-11.1); PLATELET COUNT 157 10^3/uL (134-434); RBC 2.21 M/mm3 (3.60-5.2); RDW 18.9 % (11.6-15.6); WHITE BLOOD COUNT 9.8 K/mm3 (4.0-10.0)
[2021-06-11 12:09] LABS: HEMOGLOBIN 6.9 GM/dL (10.7-15.3)
[2021-06-11] MEDS ORDERED: QUEtiapine FUMARATE 25 MG TABLET PO ONE (12:41)
[2021-06-11 14:29] LABS: ANISOCYTOSIS 1+; MACROCYTOSIS 0; PLATELET ESTIMATE DECREASED; TARGET CELLS 1+
[2021-06-11 16:06] LABS: HEMATOCRIT 26.1 % (32.4-45.2); HEMOGLOBIN 8.6 GM/dL (10.7-15.3); MCH 31.4 pg (25.7-33.7); MCHC 32.9 g/dl (32.0-36.0); MEAN CELL VOLUME 95.5 fl (80-96); MEAN PLT VOLUME 8.9 fl (7.5-11.1); PLATELET COUNT 212 10^3/uL (134-434); RBC 2.73 M/mm3 (3.60-5.2); RDW 18.8 % (11.6-15.6); WHITE BLOOD COUNT 10.8 K/mm3 (4.0-10.0)
[2021-06-11] MEDS: POTASSIUM CHLORIDE 10 MEQ in SODIUM CHLORIDE 1,000 ML IV SCH (16:33)
[2021-06-11 17:08] LABS: MYCOPLASMA PNEUMONIAE,IG G AB <100 U/mL (0-99); MYCOPLASMA PNEUMONIAE,IGM AB <770 U/mL (0-769)
[2021-06-11 17:59] LABS: ANISOCYTOSIS 2+; MACROCYTOSIS 1+; PLATELET ESTIMATE NORMAL; TARGET CELLS 1+
[2021-06-11 20:34] LABS: EPI CELLS 20 /uL (0-25.1); HYALINE CASTS 0 /uL (0-3.1); PH,URINE 5.5 (5.0-8.0); URINE APPEARANCE CLEAR; URINE BACTERIA 11 /uL (0-1359); URINE BILIRUBIN NEGATIVE (NEGATIVE); URINE COLOR YELLOW; URINE GLUCOSE (UA) NEGATIVE (NEGATIVE); URINE KETONE NEGATIVE (NEGATIVE); URINE LEUK ESTERASE NEGATIVE (NEGATIVE); URINE NITRITE NEGATIVE (NEGATIVE); URINE PROTEIN 1+ (NEGATIVE); URINE RBC 18 /uL (0-23.9); URINE UROBILINOGEN 0.2 mg/dL (0.2-1.0); URINE WBC 5 /uL (0-25.8)
[2021-06-11] MEDS ORDERED: TRIMETHOBENZAMIDE HCL 300 MG CAPSULE PO ONE (23:58)
[2021-06-12] MEDS: LORazepam 0.5 MG TABLET PO SCH ×4 (02:20→21:03)
[2021-06-12] MEDS: HEPARIN NA (PORCINE) 5,000 UNITS/ML 1ML VIAL SQ SCH ×3 (06:45→21:02)
[2021-06-12] MEDS: CLOTRIMAZOLE 1% CREAM TP SCH ×2 (11:57→21:04)
[2021-06-12] MEDS: LORazepam 1 MG TABLET PO PRN (16:04)
[2021-06-12] MEDS: ONDANSETRON 4 MG/2 ML VIAL IVPUSH PRN (16:10)
[2021-06-13] MEDS: LORazepam 0.5 MG TABLET PO SCH ×4 (02:29→21:33)
[2021-06-13] MEDS: ONDANSETRON 4 MG/2 ML VIAL IVPUSH PRN ×3 (02:29→21:36)
[2021-06-13] MEDS: HEPARIN NA (PORCINE) 5,000 UNITS/ML 1ML VIAL SQ SCH ×3 (05:30→21:33)
[2021-06-13] MEDS: CLOTRIMAZOLE 1% CREAM TP SCH ×2 (09:41→21:33)
[2021-06-13 16:38] LABS: ALBUMIN 1.2 g/dl (3.4-5.0); BLOOD UREA NITROGEN 19.8 mg/dL (7-18); CALCIUM 7.7 mg/dL (8.5-10.1)
[2021-06-13 16:42] LABS: CREATININE 3.1 mg/dL (0.55-1.3)
[2021-06-13 16:43] LABS: BILIRUBIN,TOTAL 0.7 mg/dL (0.2-1); TOT PROT 4.6 g/dl (6.4-8.2)
[2021-06-14] MEDS: LORazepam 0.5 MG TABLET PO SCH ×3 (02:03→13:59)
[2021-06-14] MEDS: ONDANSETRON 4 MG/2 ML VIAL IVPUSH PRN (05:12)
[2021-06-14] MEDS: LORazepam 1 MG TABLET PO PRN ×2 (05:13→17:05)
[2021-06-14] MEDS: HEPARIN NA (PORCINE) 5,000 UNITS/ML 1ML VIAL SQ SCH ×2 (06:10→14:00)
[2021-06-14] MEDS: CLOTRIMAZOLE 1% CREAM TP SCH (10:16)
[2021-06-14] MEDS ORDERED: ERGOCALCIFEROL (VIT D2) 50,000 UNIT (1.25 MG) CAPSULE PO SCH (13:45)
[2021-06-14 14:38] VITALS: BP 108/69; PULSE 92; TEMP 98.6
[2021-06-14] MEDS ORDERED: PT OWN MED DRAWER 7, Y5N ONE (15:28)
[2021-06-14] MEDS ORDERED: QUEtiapine FUMARATE 25 MG TABLET PO SCH (22:00)
[2021-06-14] MEDS ORDERED: GABAPENTIN 300 MG CAPSULE PO SCH (22:00)
[2021-06-15] MEDS ORDERED: QUEtiapine FUMARATE 25 MG TABLET PO SCH (10:00)
[2021-06-15] MEDS ORDERED: FOLIC ACID 1 MG TABLET (FP) PO SCH (10:00)
[2021-06-15] MEDS ORDERED: IRON POLYSACCHARIDES 150 MG CAPSULE PO SCH (10:00)
[2021-06-15] MEDS ORDERED: THIAMINE HCL 100 MG TABLET (FP) PO SCH (10:00)
== END 2021-06-14 18:37 | disposition home or self-care (01) | DRG 280 ==
LOC: JER 04:03 → JERBED 06:55 → J8W 09:25
PROVIDERS: ADMIT Student in an Organized Health Care Education/Training Program; ATTEND Internal Medicine
DX: K70.30 Alcoholic cirrhosis of liver without ascites (principal); K70.10 Alcoholic hepatitis without ascites; N17.0 Acute kidney failure with tubular necrosis; G92 Toxic encephalopathy; K72.00 Acute and subacute hepatic failure without coma; E87.2 Acidosis; M62.82 Rhabdomyolysis; R94.5 Abnormal results of liver function studies; J98.11 Atelectasis; Z91.14 Patient's other noncompliance with medication regimen; F13.20 Sedative, hypnotic or anxiolytic dependence, uncomplicated; B18.1 Chronic viral hepatitis B without delta-agent; K21.9 Gastro-esophageal reflux disease without esophagitis; I10 Essential (primary) hypertension; E87.6 Hypokalemia; G40.909 Epilepsy, unspecified, not intractable, without status epilepticus; F11.20 Opioid dependence, uncomplicated; R74.01 Elevation of levels of liver transaminase levels; R91.1 Solitary pulmonary nodule; B35.6 Tinea cruris; D62 Acute posthemorrhagic anemia; R07.89 Other chest pain; R76.0 Raised antibody titer
CPT/HCPCS: 36415; 71045-TC-FY; 76705-TC; 80053; 80307; 81003; 82436; 82550; 82553; 82570; 82803; 83605; 83735; 84100; 84133; 84300; 84484; 85025; 85610; 85730; 86038; 86140; 86160; 86593; 86707; 86738; 86780; 87040; 87350; 87804; 87899; 93005; 93010; 99285-25; C9803; J1644; U0003; U0005

== ENCOUNTER 2021-06-29 11:35 | Inpatient (IN) | payer OTHER ==
[2021-06-29 12:14] VITALS: BMI 26.5
[2021-06-29] MEDS ORDERED: ONDANSETRON 4 MG/2 ML VIAL IVPUSH ONE (12:45)
[2021-06-29] MEDS ORDERED: FAMOTIDINE 20 MG/50 ML IVPB 20 MG/50 ML MG IVPB ONE ×2 (12:45→12:59)
[2021-06-29] MEDS ORDERED: ONDANSETRON 4 MG/2 ML VIAL ONE (12:59)
[2021-06-29] MEDS ORDERED: SODIUM CHLORIDE 0.9% 500 ML INFUS.BAG IV ONE (12:59)
[2021-06-29 14:23] LABS: HEMATOCRIT 16.9 % (32.4-45.2); MCH 31.5 pg (25.7-33.7); MCHC 32.6 g/dl (32.0-36.0); MEAN CELL VOLUME 96.5 fl (80-96); MEAN PLT VOLUME 8.6 fl (7.5-11.1); PLATELET COUNT 348 10^3/uL (134-434); RBC 1.75 M/mm3 (3.60-5.2); RDW 20.5 % (11.6-15.6); WHITE BLOOD COUNT 19.4 K/mm3 (4.0-10.0)
[2021-06-29 14:38] LABS: HEMOGLOBIN 5.5 GM/dL (10.7-15.3)
[2021-06-29 14:47] LABS: ALBUMIN 1.7 g/dl (3.4-5.0); BLOOD UREA NITROGEN 20.8 mg/dL (7-18); CALCIUM 7.7 mg/dL (8.5-10.1); MAGNESIUM 1.9 mg/dL (1.8-2.4)
[2021-06-29 14:51] LABS: CREATININE 1.8 mg/dL (0.55-1.3)
[2021-06-29 14:52] LABS: BILIRUBIN,TOTAL 0.6 mg/dL (0.2-1); TOT PROT 5.9 g/dl (6.4-8.2)
[2021-06-29 16:24] LABS: ANISOCYTOSIS 1+; MACROCYTOSIS 1+; PLATELET ESTIMATE NORMAL; TARGET CELLS 1+
[2021-06-29 16:25] LABS: INR 1.09 (0.83-1.09); PROTHROMBIN TIME (PATIENT) 13.4 SEC (9.7-13.0)
[2021-06-29 16:28] LABS: ACTIVATED PTT 21.1 SECONDS (25.2-36.5)
[2021-06-29] MEDS ORDERED: MAGNESIUM SULF 50% (8.12 MEQ/2 ML-1 GM VIAL) IVPB ONE (23:27)
[2021-06-29] MEDS: KCL 10 MEQ IVPB 10 MEQ/100 ML INFUS.BAG IVPB SCH ×2 (23:37→23:50)
[2021-06-29] MEDS ORDERED: KCL 10 MEQ IVPB 10 MEQ/100 ML INFUS.BAG IVPB ONE (23:39)
[2021-06-29] MEDS ORDERED: PANTOPRAZOLE SODIUM 40 MG/100 ML BAG IVPB ONE (23:39)
[2021-06-29] MEDS ORDERED: MAGNESIUM 1GM/D5W - 1 GM/100 ML IVPB IVPB ONE (23:40)
[2021-06-29] MEDS: PANTOPRAZOLE SODIUM 40 MG VIAL IVPUSH SCH (23:50)
[2021-06-30] MEDS ORDERED: KCL 10 MEQ IVPB 10 MEQ/100 ML INFUS.BAG IVPB ONE ×3 (00:32→10:09)
[2021-06-30] MEDS: KCL 10 MEQ IVPB 10 MEQ/100 ML INFUS.BAG IVPB SCH ×5 (00:56→10:21)
[2021-06-30] MEDS ORDERED: LORazepam 2 MG/ML SDV VIAL ONE ×3 (05:04→17:43)
[2021-06-30] MEDS: LORazepam 2 MG/ML SDV VIAL IVPUSH PRN ×4 (05:11→22:42)
[2021-06-30] MEDS: PANTOPRAZOLE SODIUM 40 MG VIAL IVPUSH SCH ×2 (10:00→22:18)
[2021-06-30] MEDS ORDERED: PANTOPRAZOLE SODIUM 40 MG/100 ML BAG IVPB ONE (10:11)
[2021-06-30 11:47] LABS: HEMATOCRIT 20.7 % (32.4-45.2); MCH 30.3 pg (25.7-33.7); MCHC 33.7 g/dl (32.0-36.0); MEAN CELL VOLUME 89.9 fl (80-96); PLATELET COUNT 322 10^3/uL (134-434); RBC 2.31 M/mm3 (3.60-5.2); RDW 20.6 % (11.6-15.6)
[2021-06-30 12:07] LABS: WHITE BLOOD COUNT 22.3 K/mm3 (4.0-10.0)
[2021-06-30 12:16] LABS: CALCIUM 7.4 mg/dL (8.5-10.1)
[2021-06-30 12:17] LABS: ALBUMIN 1.7 g/dl (3.4-5.0); BLOOD UREA NITROGEN 19.3 mg/dL (7-18); MAGNESIUM 1.9 mg/dL (1.8-2.4)
[2021-06-30 12:20] LABS: CREATININE 1.6 mg/dL (0.55-1.3); PHOSPHOROUS 3.3 mg/dL (2.5-4.9)
[2021-06-30 12:21] LABS: BILIRUBIN,TOTAL 1.3 mg/dL (0.2-1); TOT PROT 5.6 g/dl (6.4-8.2)
[2021-06-30 13:34] LABS: ANISOCYTOSIS 1+; CORRECTED WBC 19.91 K/mm3; MACROCYTOSIS 1+; PLATELET ESTIMATE NORMAL
[2021-06-30] MEDS ORDERED: SPIRONOLACTONE 25 MG TABLET PO ONE (15:26)
[2021-06-30 18:01] LABS: EPI CELLS 20 /uL (0-25.1); HYALINE CASTS 5 /uL (0-3.1); URINE APPEARANCE CLEAR; URINE BACTERIA 63 /uL (0-1359); URINE BILIRUBIN NEGATIVE (NEGATIVE); URINE COLOR YELLOW; URINE GLUCOSE (UA) NEGATIVE (NEGATIVE); URINE KETONE NEGATIVE (NEGATIVE); URINE LEUK ESTERASE NEGATIVE (NEGATIVE); URINE NITRITE NEGATIVE (NEGATIVE); URINE PROTEIN 2+ (NEGATIVE); URINE RBC 12 /uL (0-23.9); URINE WBC 11 /uL (0-25.8)
[2021-07-01] MEDS: LORazepam 2 MG/ML SDV VIAL IVPUSH PRN ×2 (02:42→06:42)
[2021-07-01] MEDS ORDERED: LORazepam 1 MG TABLET PO PRN (08:11)
[2021-07-01 08:21] LABS: CHLORIDE 104 mmol/L (98-107); SODIUM 140 mmol/L (136-145)
[2021-07-01 08:26] LABS: ANION GAP 4 MMOL/L (8-16); BLOOD UREA NITROGEN 16.4 mg/dL (7-18); CO2 32 mmol/L (21-32); GLUCOSE,RANDOM 95 mg/dL (74-106)
[2021-07-01 08:28] LABS: BILIRUBIN,DIRECT 0.2 mg/dL (0.0-0.2)
[2021-07-01 08:29] LABS: CREATININE 1.5 mg/dL (0.55-1.3); SGOT/AST 59 U/L (15-37); SGPT/ALT 16 U/L (13-61)
[2021-07-01 08:30] LABS: BILIRUBIN,TOTAL 0.5 mg/dL (0.2-1)
[2021-07-01 09:08] LABS: ALBUMIN 0.6 g/dl (3.4-5.0); ALK PHOS 195 U/L (45-117); CALCIUM 6.6 mg/dL (8.5-10.1); TOT PROT 2.4 g/dl (6.4-8.2)
[2021-07-01] MEDS: PANTOPRAZOLE SODIUM 40 MG VIAL IVPUSH SCH (09:20)
[2021-07-01] MEDS ORDERED: LORazepam 1 MG TABLET PO SCH (11:00)
[2021-07-01 16:29] VITALS: BP 118/77; PULSE 119; TEMP 99.1
[2021-07-03] MEDS ORDERED: LORazepam 1 MG TABLET PO SCH (05:00)
[2021-07-04] MEDS ORDERED: LORazepam 0.5 MG TABLET PO PRN
[2021-07-04] MEDS ORDERED: LORazepam 0.5 MG TABLET PO SCH (05:00)
[2021-07-05] MEDS ORDERED: LORazepam 0.5 MG TABLET PO ONE (05:00)
== END 2021-07-01 14:05 | disposition left against medical advice (07) | DRG 253 ==
LOC: JER 11:35 → JERBED 15:09 → J4S 06-30 18:50
PROVIDERS: ADMIT Internal Medicine; ATTEND Internal Medicine
DX: K92.2 Gastrointestinal hemorrhage, unspecified (principal); K21.9 Gastro-esophageal reflux disease without esophagitis; E87.6 Hypokalemia; N17.9 Acute kidney failure, unspecified; D64.9 Anemia, unspecified; G40.909 Epilepsy, unspecified, not intractable, without status epilepticus; K70.10 Alcoholic hepatitis without ascites; F10.220 Alcohol dependence with intoxication, uncomplicated; F11.10 Opioid abuse, uncomplicated; R94.31 Abnormal electrocardiogram [ECG] [EKG]; F10.230 Alcohol dependence with withdrawal, uncomplicated; K76.0 Fatty (change of) liver, not elsewhere classified; J98.11 Atelectasis; F13.20 Sedative, hypnotic or anxiolytic dependence, uncomplicated; I12.9 Hypertensive chronic kidney disease with stage 1 through stage 4 chronic kidney disease, or unspecified chronic kidney disease; N18.9 Chronic kidney disease, unspecified
CPT/HCPCS: 36415; 36430; 36511; 71045-TC-FY; 74176-TC; 74181-TC; 80048; 80053; 80076; 81003; 82105; 82272; 82728; 83010; 83540; 83550; 83615; 83735; 84100; 84703; 85025; 85610; 85730; 86850; 86900; 86901; 86922; 87040; 87086; 87186; 93005; 93010; 99285-25; C9803; P9038; P9058; U0003; U0005

== ENCOUNTER 2021-07-06 18:19 | Inpatient (IN) | payer OTHER ==
[2021-07-06] MEDS ORDERED: METOCLOPRAMIDE HCL INJECTION 10 MG/2 ML VIAL IVPUSH ONE (18:31)
[2021-07-06] MEDS ORDERED: LACTATED RINGERS SOLUTION 1,000 ML IV STA ×2 (18:31→22:40)
[2021-07-06 18:46] VITALS: BMI 28.3
[2021-07-06] MEDS ORDERED: ONDANSETRON *ODT* 4 MG TABLET SL ONE (18:52)
[2021-07-06] MEDS ORDERED: diazePAM CARPU-JECT 10 MG/2 ML DISP.SYRIN IVPUSH ONE ×3 (18:53→19:53)
[2021-07-06] MEDS ORDERED: ONDANSETRON *ODT* 4 MG TABLET ONE (18:56)
[2021-07-06] MEDS ORDERED: METOCLOPRAMIDE HCL INJECTION 10 MG/2 ML VIAL ONE (18:59)
[2021-07-06] MEDS ORDERED: diazePAM CARPU-JECT 10 MG/2 ML DISP.SYRIN ONE ×4 (18:59→20:12)
[2021-07-06] MEDS ORDERED: LORazepam 2 MG/ML SDV VIAL ONE ×2 (20:54→22:46)
[2021-07-06] MEDS ORDERED: LORazepam 2 MG/ML SDV VIAL IVPUSH ONE ×2 (21:00→22:39)
[2021-07-06 21:01] LABS: CHLORIDE 105 mmol/L (98-107); SODIUM 143 mmol/L (136-145)
[2021-07-06 21:03] LABS: ANION GAP 17 MMOL/L (8-16); BLOOD UREA NITROGEN 7.6 mg/dL (7-18); CO2 21 mmol/L (21-32); GLUCOSE,RANDOM 104 mg/dL (74-106)
[2021-07-06 21:06] LABS: CREATININE 1.2 mg/dL (0.55-1.3); SGOT/AST 86 U/L (15-37); SGPT/ALT 36 U/L (13-61)
[2021-07-06 21:07] LABS: BILIRUBIN,TOTAL 0.4 mg/dL (0.2-1)
[2021-07-06 21:14] LABS: ALBUMIN 1.5 g/dl (3.4-5.0); ALK PHOS 357 U/L (45-117); CALCIUM 7.7 mg/dL (8.5-10.1); TOT PROT 5.8 g/dl (6.4-8.2)
[2021-07-06 21:41] LABS: BASO % 0.8 % (0-2.0); EOS % 0.1 % (0-4.5); HEMATOCRIT 19.5 % (32.4-45.2); LYMPH % 15.4 % (8-40); MCH 29.3 pg (25.7-33.7); MCHC 31.4 g/dl (32.0-36.0); MEAN CELL VOLUME 93.4 fl (80-96); MEAN PLT VOLUME 7.9 fl (7.5-11.1); MONO % 13.7 % (3.8-10.2); PLATELET COUNT 439 10^3/uL (134-434); RBC 2.09 M/mm3 (3.60-5.2); RDW 19.6 % (11.6-15.6); WHITE BLOOD COUNT 12.1 K/mm3 (4.0-10.0)
[2021-07-06 21:47] LABS: PROTHROMBIN TIME (PATIENT) 12.3 SEC (9.7-13.0)
[2021-07-06 21:50] LABS: ACTIVATED PTT 21.6 SECONDS (25.2-36.5)
[2021-07-06 22:05] LABS: HEMOGLOBIN 6.1 GM/dL (10.7-15.3)
[2021-07-06] MEDS ORDERED: diazePAM 5 MG TABLET PO PRN (22:34)
[2021-07-07] MEDS ORDERED: diazePAM 5 MG TABLET ONE ×4 (00:09→16:41)
[2021-07-07] MEDS: diazePAM 5 MG TABLET PO SCH ×5 (00:11→23:48)
[2021-07-07] MEDS ORDERED: LACTATED RINGERS SOLUTION 1,000 ML/1,000 ML INFUS.BAG IV SCH (00:45)
[2021-07-07] MEDS ORDERED: FOLIC ACID 5 MG/1 ML SQ ONE (00:47)
[2021-07-07] MEDS ORDERED: LORazepam 2 MG/ML SDV VIAL ONE ×4 (01:41→07:20)
[2021-07-07] MEDS: LORazepam 2 MG/ML SDV VIAL IVPUSH SCH ×4 (01:47→07:22)
[2021-07-07] MEDS ORDERED: FOLIC ACID INJECTION - 1 MG, THIAMINE HCL 100 MG, MULTIVIT INJECTION ADULT 10 ML in SOD... IVPB ONE (02:00)
[2021-07-07] MEDS ORDERED: CEFAZOLIN 1 GM/D5W 1 GM/50 ML BAG ONE ×2 (02:05→09:28)
[2021-07-07] MEDS ORDERED: PANTOPRAZOLE SODIUM 40 MG VIAL ONE ×2 (02:25→09:28)
[2021-07-07] MEDS: PANTOPRAZOLE SODIUM 40 MG VIAL IVPUSH SCH ×3 (02:27→21:04)
[2021-07-07] MEDS: CEFAZOLIN 1 GM in DEXTROSE 5%-WATER - 50 ML IVPB SCH ×3 (03:04→17:57)
[2021-07-07] MEDS: LACTATED RINGERS SOLUTION 1,000 ML/1,000 ML INFUS.BAG IV SCH ×2 (07:57→17:58)
[2021-07-07] MEDS ORDERED: QUEtiapine FUMARATE 25 MG TABLET ONE (09:28)
[2021-07-07] MEDS ORDERED: THIAMINE HCL 200 MG/2 ML VIAL ONE ×2 (09:28→09:38)
[2021-07-07] MEDS: QUEtiapine FUMARATE 25 MG TABLET PO SCH ×2 (09:36→21:04)
[2021-07-07] MEDS: THIAMINE HCL 200 MG/2 ML VIAL IM SCH (09:36)
[2021-07-07 14:32] LABS: PH,URINE 7.5 (5.0-8.0); URINE APPEARANCE CLEAR; URINE BILIRUBIN NEGATIVE (NEGATIVE); URINE COLOR YELLOW; URINE GLUCOSE (UA) NEGATIVE (NEGATIVE); URINE KETONE NEGATIVE (NEGATIVE); URINE LEUK ESTERASE NEGATIVE (NEGATIVE); URINE NITRITE NEGATIVE (NEGATIVE); URINE PROTEIN TRACE (NEGATIVE)
[2021-07-07 14:40] LABS: URINE BARBITURATES NEGATIVE (NEGATIVE)
[2021-07-07 14:41] LABS: COCAINE, UR NEGATIVE (NEGATIVE); OPIATES, URI NEGATIVE (NEGATIVE); PHENCYCLIDINE,URINE NEGATIVE (NEGATIVE)
[2021-07-07 14:50] LABS: METHADONE, UR POSITIVE (NEGATIVE); URINE AMPHETAMINES NEGATIVE (NEGATIVE); URINE BENZODIAZEPINES POSITIVE (NEGATIVE)
[2021-07-07] MEDS ORDERED: ceFAZolin SODIUM 1 GM VIAL ONE (17:51)
[2021-07-07] MEDS ORDERED: DEXTROSE 5%-WATER - 50 ML IVPB ONE (17:51)
[2021-07-07] MEDS ORDERED: diazePAM 5 MG TABLET PO PRN (18:43)
[2021-07-07] MEDS: GABAPENTIN 300 MG CAPSULE PO SCH (21:04)
[2021-07-08] MEDS ORDERED: DEXTROSE 5%-WATER - 50 ML IVPB ONE ×3 (00:48→16:54)
[2021-07-08] MEDS ORDERED: ceFAZolin SODIUM 1 GM VIAL ONE ×3 (00:48→16:54)
[2021-07-08] MEDS: CEFAZOLIN 1 GM in DEXTROSE 5%-WATER - 50 ML IVPB SCH ×3 (01:09→17:01)
[2021-07-08] MEDS ORDERED: diazePAM 5 MG TABLET PO SCH (06:00)
[2021-07-08] MEDS: QUEtiapine FUMARATE 25 MG TABLET PO SCH ×2 (09:01→22:52)
[2021-07-08] MEDS: GABAPENTIN 300 MG CAPSULE PO SCH ×2 (09:01→22:51)
[2021-07-08] MEDS: PANTOPRAZOLE SODIUM 40 MG VIAL IVPUSH SCH ×2 (09:01→22:52)
[2021-07-08] MEDS: ONDANSETRON 4 MG/2 ML VIAL IVPUSH PRN (09:01)
[2021-07-08] MEDS: THIAMINE HCL 200 MG/2 ML VIAL IM SCH (09:02)
[2021-07-08 09:30] LABS: ALBUMIN 1.3 g/dl (3.4-5.0); BLOOD UREA NITROGEN 6.5 mg/dL (7-18); CALCIUM 7.4 mg/dL (8.5-10.1); MAGNESIUM 1.3 mg/dL (1.8-2.4)
[2021-07-08 09:34] LABS: CREATININE 1.1 mg/dL (0.55-1.3)
[2021-07-08 09:35] LABS: BILIRUBIN,TOTAL 0.8 mg/dL (0.2-1); TOT PROT 5.1 g/dl (6.4-8.2)
[2021-07-08] MEDS: LORazepam 1 MG TABLET PO SCH ×3 (10:48→22:51)
[2021-07-08 11:01] LABS: BILIRUBIN,DIRECT 0.4 mg/dL (0.0-0.2)
[2021-07-08] MEDS: LORazepam 1 MG TABLET PO PRN (20:27)
[2021-07-09] MEDS ORDERED: ceFAZolin SODIUM 1 GM VIAL ONE ×3 (02:03→16:51)
[2021-07-09] MEDS ORDERED: DEXTROSE 5%-WATER - 50 ML IVPB ONE ×3 (02:03→16:51)
[2021-07-09] MEDS: LORazepam 1 MG TABLET PO PRN ×4 (02:05→21:19)
[2021-07-09] MEDS: CEFAZOLIN 1 GM in DEXTROSE 5%-WATER - 50 ML IVPB SCH ×3 (02:05→17:10)
[2021-07-09] MEDS: ONDANSETRON 4 MG/2 ML VIAL IVPUSH PRN ×2 (02:06→09:57)
[2021-07-09] MEDS: LORazepam 1 MG TABLET PO SCH ×4 (05:35→23:21)
[2021-07-09] MEDS ORDERED: diazePAM 5 MG TABLET PO SCH (06:00)
[2021-07-09 08:09] LABS: BASO % 0.6 % (0-2.0); EOS % 2.4 % (0-4.5); HEMATOCRIT 22.2 % (32.4-45.2); HEMOGLOBIN 7.4 GM/dL (10.7-15.3); LYMPH % 32.8 % (8-40); MCH 30.4 pg (25.7-33.7); MCHC 33.2 g/dl (32.0-36.0); MEAN CELL VOLUME 91.5 fl (80-96); MEAN PLT VOLUME 9.3 fl (7.5-11.1); MONO % 11.5 % (3.8-10.2); NEUT % 52.7 % (42.8-82.8); PLATELET COUNT 99 10^3/uL (134-434); RBC 2.43 M/mm3 (3.60-5.2); RDW 17.2 % (11.6-15.6); WHITE BLOOD COUNT 9.1 K/mm3 (4.0-10.0)
[2021-07-09 08:43] LABS: ALBUMIN 1.2 g/dl (3.4-5.0); CALCIUM 7.1 mg/dL (8.5-10.1)
[2021-07-09 08:44] LABS: BLOOD UREA NITROGEN 4.3 mg/dL (7-18); MAGNESIUM 1.3 mg/dL (1.8-2.4)
[2021-07-09 08:46] LABS: BILIRUBIN,TOTAL 0.5 mg/dL (0.2-1)
[2021-07-09 08:47] LABS: CREATININE 1.1 mg/dL (0.55-1.3); TOT PROT 4.8 g/dl (6.4-8.2)
[2021-07-09] MEDS ORDERED: LORazepam 1 MG TABLET PO ONE (09:06)
[2021-07-09] MEDS ORDERED: MAGNESIUM OXIDE 400 MG TABLET (FP) PO ONE (09:08)
[2021-07-09] MEDS: THIAMINE HCL 200 MG/2 ML VIAL IM SCH (09:53)
[2021-07-09] MEDS: PANTOPRAZOLE SODIUM 40 MG VIAL IVPUSH SCH ×2 (09:53→22:38)
[2021-07-09] MEDS: GABAPENTIN 300 MG CAPSULE PO SCH ×2 (09:53→22:38)
[2021-07-09] MEDS: QUEtiapine FUMARATE 25 MG TABLET PO SCH ×2 (09:54→22:39)
[2021-07-09] MEDS ORDERED: MAGNESIUM SULF 50% (8.12 MEQ/2 ML-1 GM VIAL) IVPB ONE (20:57)
[2021-07-09] MEDS: HYDROCORTISONE 1% TOPICAL CREAM 30 GM TUBE TP PRN (22:43)
[2021-07-10] MEDS ORDERED: ceFAZolin SODIUM 1 GM VIAL ONE ×3 (01:08→17:25)
[2021-07-10] MEDS ORDERED: DEXTROSE 5%-WATER - 50 ML IVPB ONE ×3 (01:08→17:25)
[2021-07-10] MEDS: LORazepam 1 MG TABLET PO PRN ×4 (01:14→23:29)
[2021-07-10] MEDS: CEFAZOLIN 1 GM in DEXTROSE 5%-WATER - 50 ML IVPB SCH ×3 (01:18→17:26)
[2021-07-10] MEDS: LORazepam 1 MG TABLET PO SCH ×4 (05:32→23:14)
[2021-07-10] MEDS ORDERED: diazePAM 5 MG TABLET PO ONE (06:00)
[2021-07-10 07:11] LABS: BASO % 0.7 % (0-2.0); EOS % 0.7 % (0-4.5); HEMATOCRIT 25.5 % (32.4-45.2); HEMOGLOBIN 8.1 GM/dL (10.7-15.3); LYMPH % 10.8 % (8-40); MCH 29.4 pg (25.7-33.7); MCHC 31.6 g/dl (32.0-36.0); MEAN CELL VOLUME 93.1 fl (80-96); MEAN PLT VOLUME 8.2 fl (7.5-11.1); MONO % 6.4 % (3.8-10.2); NEUT % 81.4 % (42.8-82.8); PLATELET COUNT 345 10^3/uL (134-434); RBC 2.74 M/mm3 (3.60-5.2); RDW 17.1 % (11.6-15.6); WHITE BLOOD COUNT 28.4 K/mm3 (4.0-10.0)
[2021-07-10] MEDS: PANTOPRAZOLE SODIUM 40 MG VIAL IVPUSH SCH ×2 (09:12→21:29)
[2021-07-10] MEDS: GABAPENTIN 300 MG CAPSULE PO SCH ×2 (09:12→21:21)
[2021-07-10] MEDS: THIAMINE HCL 200 MG/2 ML VIAL IM SCH (09:12)
[2021-07-10] MEDS: QUEtiapine FUMARATE 25 MG TABLET PO SCH ×2 (09:12→21:21)
[2021-07-10] MEDS: HYDROCORTISONE 1% TOPICAL CREAM 30 GM TUBE TP PRN ×2 (09:13→13:46)
[2021-07-10 10:26] LABS: ALBUMIN 1.2 g/dl (3.4-5.0); BLOOD UREA NITROGEN 4.4 mg/dL (7-18); CALCIUM 7.1 mg/dL (8.5-10.1); MAGNESIUM 1.4 mg/dL (1.8-2.4)
[2021-07-10 10:30] LABS: CREATININE 1.1 mg/dL (0.55-1.3)
[2021-07-10 10:31] LABS: BILIRUBIN,TOTAL 0.4 mg/dL (0.2-1); TOT PROT 4.9 g/dl (6.4-8.2)
[2021-07-10 11:11] LABS: ANISOCYTOSIS 1+; MACROCYTOSIS 0; OVALOCYTE 1+; PLATELET ESTIMATE NORMAL; TARGET CELLS 2+
[2021-07-10] MEDS ORDERED: MAGNESIUM OXIDE 400 MG TABLET (FP) PO ONE ×2 (11:41→13:45)
[2021-07-10] MEDS: ONDANSETRON 4 MG/2 ML VIAL IVPUSH PRN ×2 (15:49→20:58)
[2021-07-10] MEDS: MAGNESIUM OXIDE 400 MG TABLET (FP) PO SCH (21:20)
[2021-07-10] MEDS ORDERED: MAGNESIUM OXIDE 400 MG TABLET (FP) PO SCH (22:00)
[2021-07-11] MEDS ORDERED: LORazepam 0.5 MG TABLET PO PRN
[2021-07-11] MEDS ORDERED: DEXTROSE 5%-WATER - 50 ML IVPB ONE ×3 (01:57→16:55)
[2021-07-11] MEDS ORDERED: ceFAZolin SODIUM 1 GM VIAL ONE ×3 (01:57→16:54)
[2021-07-11] MEDS: CEFAZOLIN 1 GM in DEXTROSE 5%-WATER - 50 ML IVPB SCH ×3 (02:04→17:00)
[2021-07-11] MEDS: LORazepam 0.5 MG TABLET PO SCH ×4 (05:37→22:54)
[2021-07-11] MEDS ORDERED: LORazepam 2 MG TABLET PO ONE (08:40)
[2021-07-11] MEDS ORDERED: LORazepam 1 MG TABLET PO ONE (09:00)
[2021-07-11] MEDS: MAGNESIUM OXIDE 400 MG TABLET (FP) PO SCH ×2 (10:07→21:17)
[2021-07-11] MEDS: GABAPENTIN 300 MG CAPSULE PO SCH ×2 (10:07→21:16)
[2021-07-11] MEDS: QUEtiapine FUMARATE 25 MG TABLET PO SCH ×2 (10:07→21:16)
[2021-07-11] MEDS: PANTOPRAZOLE SODIUM 40 MG VIAL IVPUSH SCH ×2 (10:07→21:17)
[2021-07-11] MEDS: THIAMINE HCL 200 MG/2 ML VIAL IM SCH (10:09)
[2021-07-11 11:18] LABS: BASO % 1.3 % (0-2.0); EOS % 2.3 % (0-4.5); HEMATOCRIT 23.8 % (32.4-45.2); HEMOGLOBIN 7.7 GM/dL (10.7-15.3); LYMPH % 15.3 % (8-40); MCH 29.9 pg (25.7-33.7); MCHC 32.2 g/dl (32.0-36.0); MEAN CELL VOLUME 92.9 fl (80-96); MEAN PLT VOLUME 8.2 fl (7.5-11.1); MONO % 9.3 % (3.8-10.2); NEUT % 71.8 % (42.8-82.8); PLATELET COUNT 343 10^3/uL (134-434); RBC 2.57 M/mm3 (3.60-5.2); RDW 17.1 % (11.6-15.6); WHITE BLOOD COUNT 15.5 K/mm3 (4.0-10.0)
[2021-07-11 11:39] LABS: ALBUMIN 1.1 g/dl (3.4-5.0); BLOOD UREA NITROGEN 9.3 mg/dL (7-18); CALCIUM 7.7 mg/dL (8.5-10.1); MAGNESIUM 1.5 mg/dL (1.8-2.4)
[2021-07-11 11:42] LABS: CREATININE 1.3 mg/dL (0.55-1.3)
[2021-07-11 11:44] LABS: BILIRUBIN,TOTAL 0.2 mg/dL (0.2-1); TOT PROT 4.8 g/dl (6.4-8.2)
[2021-07-11] MEDS ORDERED: FUROSEMIDE 40 MG/4 ML INJECTABLE VIAL IVPUSH ONE (12:30)
[2021-07-11] MEDS ORDERED: MAGNESIUM 2GM/50ML STERILE WATER IVPB IVPB ONE (12:30)
[2021-07-11] MEDS ORDERED: ALBUMIN HUMAN 25% 100 ML VIAL IVPB SCH (12:30)
[2021-07-11] MEDS: ONDANSETRON 4 MG/2 ML VIAL IVPUSH PRN (13:40)
[2021-07-11] MEDS: ALBUMIN HUMAN 25% 100 ML VIAL IVPB SCH ×2 (14:09→17:38)
[2021-07-11] MEDS: ACETAMINOPHEN 325 MG TABLET (FP) PO PRN (16:42)
[2021-07-11] MEDS: HYDROCORTISONE 1% TOPICAL CREAM 30 GM TUBE TP PRN (17:45)
[2021-07-12] MEDS: diphenhydrAMINE HCL 25 MG CAPSULE (FP) PO PRN ×3 (01:25→16:19)
[2021-07-12] MEDS ORDERED: ceFAZolin SODIUM 1 GM VIAL ONE ×4 (01:31→17:58)
[2021-07-12] MEDS ORDERED: DEXTROSE 5%-WATER - 50 ML IVPB ONE ×3 (01:31→17:59)
[2021-07-12] MEDS: CEFAZOLIN 1 GM in DEXTROSE 5%-WATER - 50 ML IVPB SCH ×3 (03:48→18:29)
[2021-07-12] MEDS ORDERED: LORazepam 0.5 MG TABLET PO ONE (05:00)
[2021-07-12 07:08] LABS: BASO % 0.5 % (0-2.0); EOS % 2.2 % (0-4.5); HEMATOCRIT 24.5 % (32.4-45.2); HEMOGLOBIN 7.9 GM/dL (10.7-15.3); LYMPH % 16.1 % (8-40); MCH 30.3 pg (25.7-33.7); MCHC 32.4 g/dl (32.0-36.0); MEAN CELL VOLUME 93.6 fl (80-96); MEAN PLT VOLUME 8.6 fl (7.5-11.1); MONO % 7.3 % (3.8-10.2); NEUT % 73.9 % (42.8-82.8); PLATELET COUNT 366 10^3/uL (134-434); RBC 2.61 M/mm3 (3.60-5.2); RDW 17.2 % (11.6-15.6); WHITE BLOOD COUNT 15.6 K/mm3 (4.0-10.0)
[2021-07-12 07:30] LABS: BLOOD UREA NITROGEN 10.3 mg/dL (7-18); MAGNESIUM 1.7 mg/dL (1.8-2.4)
[2021-07-12 07:33] LABS: CREATININE 1.3 mg/dL (0.55-1.3)
[2021-07-12 07:34] LABS: BILIRUBIN,TOTAL 0.3 mg/dL (0.2-1)
[2021-07-12 07:35] LABS: TOT PROT 5.3 g/dl (6.4-8.2)
[2021-07-12 07:36] LABS: ALBUMIN 1.7 g/dl (3.4-5.0)
[2021-07-12] MEDS: MAGNESIUM OXIDE 400 MG TABLET (FP) PO SCH ×2 (09:29→21:35)
[2021-07-12] MEDS: GABAPENTIN 300 MG CAPSULE PO SCH ×2 (09:30→21:34)
[2021-07-12] MEDS: QUEtiapine FUMARATE 25 MG TABLET PO SCH ×2 (09:30→21:35)
[2021-07-12] MEDS: LORazepam 1 MG TABLET PO PRN ×3 (09:31→20:28)
[2021-07-12] MEDS: PANTOPRAZOLE SODIUM 40 MG VIAL IVPUSH SCH ×2 (09:33→21:35)
[2021-07-12] MEDS: THIAMINE HCL 200 MG/2 ML VIAL IM SCH (09:34)
[2021-07-12] MEDS ORDERED: FUROSEMIDE 40 MG/4 ML INJECTABLE VIAL IVPUSH ONE (11:18)
[2021-07-12] MEDS: ALBUMIN HUMAN 25% 100 ML VIAL IVPB SCH ×2 (13:42→14:57)
[2021-07-12] MEDS: ONDANSETRON 4 MG/2 ML VIAL IVPUSH PRN (21:45)
[2021-07-13] MEDS ORDERED: ceFAZolin SODIUM 1 GM VIAL ONE ×3 (01:00→17:15)
[2021-07-13] MEDS ORDERED: DEXTROSE 5%-WATER - 50 ML IVPB ONE ×3 (01:00→17:15)
[2021-07-13] MEDS: CEFAZOLIN 1 GM in DEXTROSE 5%-WATER - 50 ML IVPB SCH ×3 (01:06→17:30)
[2021-07-13] MEDS: diphenhydrAMINE HCL 25 MG CAPSULE (FP) PO PRN ×3 (01:21→21:00)
[2021-07-13] MEDS: LORazepam 1 MG TABLET PO PRN ×3 (06:15→21:00)
[2021-07-13 08:49] LABS: BLOOD UREA NITROGEN 12.4 mg/dL (7-18); CALCIUM 8.6 mg/dL (8.5-10.1)
[2021-07-13 08:51] LABS: MAGNESIUM 1.5 mg/dL (1.8-2.4)
[2021-07-13 08:52] LABS: CREATININE 1.1 mg/dL (0.55-1.3)
[2021-07-13 08:53] LABS: BILIRUBIN,TOTAL 0.5 mg/dL (0.2-1)
[2021-07-13 08:54] LABS: TOT PROT 5.5 g/dl (6.4-8.2)
[2021-07-13 09:05] LABS: ALBUMIN 2.1 g/dl (3.4-5.0)
[2021-07-13] MEDS: QUEtiapine FUMARATE 25 MG TABLET PO SCH ×2 (10:07→21:00)
[2021-07-13] MEDS: FUROSEMIDE 40 MG TABLET (FP) PO SCH (10:07)
[2021-07-13] MEDS: MAGNESIUM OXIDE 400 MG TABLET (FP) PO SCH ×2 (10:07→21:01)
[2021-07-13] MEDS: THIAMINE HCL 200 MG/2 ML VIAL IM SCH (10:07)
[2021-07-13] MEDS: PANTOPRAZOLE SODIUM 40 MG VIAL IVPUSH SCH ×2 (10:07→21:01)
[2021-07-13] MEDS: GABAPENTIN 300 MG CAPSULE PO SCH ×2 (10:07→21:01)
[2021-07-13 12:25] LABS: BASO % 1.4 % (0-2.0); EOS % 2.9 % (0-4.5); HEMOGLOBIN 7.7 GM/dL (10.7-15.3); MCHC 32.2 g/dl (32.0-36.0); MEAN CELL VOLUME 93.1 fl (80-96); MEAN PLT VOLUME 9.5 fl (7.5-11.1); MONO % 14.3 % (3.8-10.2); NEUT % 59.4 % (42.8-82.8); PLATELET COUNT 305 10^3/uL (134-434); RBC 2.58 M/mm3 (3.60-5.2); RDW 16.4 % (11.6-15.6); WHITE BLOOD COUNT 13.8 K/mm3 (4.0-10.0)
[2021-07-13] MEDS: ONDANSETRON 4 MG/2 ML VIAL IVPUSH PRN (21:01)
[2021-07-14] MEDS ORDERED: DEXTROSE 5%-WATER - 50 ML IVPB ONE ×2 (01:18→09:57)
[2021-07-14] MEDS ORDERED: ceFAZolin SODIUM 1 GM VIAL ONE ×2 (01:18→09:56)
[2021-07-14] MEDS: CEFAZOLIN 1 GM in DEXTROSE 5%-WATER - 50 ML IVPB SCH ×3 (01:27→11:42)
[2021-07-14] MEDS: ACETAMINOPHEN 325 MG TABLET (FP) PO PRN (01:34)
[2021-07-14] MEDS: diphenhydrAMINE HCL 25 MG CAPSULE (FP) PO PRN ×2 (02:16→18:11)
[2021-07-14] MEDS: LORazepam 1 MG TABLET PO PRN ×3 (05:25→21:38)
[2021-07-14] MEDS: MAGNESIUM OXIDE 400 MG TABLET (FP) PO SCH ×2 (10:00→21:39)
[2021-07-14] MEDS: THIAMINE HCL 200 MG/2 ML VIAL IM SCH (10:00)
[2021-07-14] MEDS: PANTOPRAZOLE SODIUM 40 MG VIAL IVPUSH SCH (10:01)
[2021-07-14] MEDS: GABAPENTIN 300 MG CAPSULE PO SCH ×2 (10:01→21:39)
[2021-07-14] MEDS: QUEtiapine FUMARATE 25 MG TABLET PO SCH ×2 (10:01→21:39)
[2021-07-14] MEDS: FUROSEMIDE 40 MG TABLET (FP) PO SCH (10:01)
[2021-07-14] MEDS: ONDANSETRON 4 MG/2 ML VIAL IVPUSH PRN (10:02)
[2021-07-14] MEDS: PANTOPRAZOLE 40 MG TABLET PO SCH (11:12)
[2021-07-14] MEDS: AMOX TR/POT CLAV 875MG/125MG TABLETS (FP) PO SCH (16:41)
[2021-07-15] MEDS: PANTOPRAZOLE SODIUM 40 MG VIAL IVPUSH SCH (07:46)
[2021-07-15] MEDS: AMOX TR/POT CLAV 875MG/125MG TABLETS (FP) PO SCH ×2 (08:10→17:18)
[2021-07-15] MEDS: GABAPENTIN 300 MG CAPSULE PO SCH ×2 (10:21→22:03)
[2021-07-15] MEDS: THIAMINE HCL 200 MG/2 ML VIAL IM SCH ×2 (10:21→10:32)
[2021-07-15] MEDS: PANTOPRAZOLE 40 MG TABLET PO SCH (10:21)
[2021-07-15] MEDS: FUROSEMIDE 40 MG TABLET (FP) PO SCH (10:21)
[2021-07-15] MEDS: QUEtiapine FUMARATE 25 MG TABLET PO SCH ×2 (10:21→22:03)
[2021-07-15] MEDS: MAGNESIUM OXIDE 400 MG TABLET (FP) PO SCH ×2 (10:21→22:03)
[2021-07-15] MEDS: ACETAMINOPHEN 325 MG TABLET (FP) PO PRN (10:36)
[2021-07-15] MEDS ORDERED: LORazepam 1 MG TABLET PO ONE (10:45)
[2021-07-15 13:38] LABS: BASO % 1.2 % (0-2.0); EOS % 2.9 % (0-4.5); HEMATOCRIT 23.5 % (32.4-45.2); HEMOGLOBIN 7.6 GM/dL (10.7-15.3); LYMPH % 21.8 % (8-40); MCH 29.7 pg (25.7-33.7); MCHC 32.1 g/dl (32.0-36.0); MEAN CELL VOLUME 92.5 fl (80-96); MEAN PLT VOLUME 8.4 fl (7.5-11.1); MONO % 17.6 % (3.8-10.2); NEUT % 56.5 % (42.8-82.8); PLATELET COUNT 524 10^3/uL (134-434); RBC 2.54 M/mm3 (3.60-5.2); RDW 16.4 % (11.6-15.6); WHITE BLOOD COUNT 12.8 K/mm3 (4.0-10.0)
[2021-07-15 13:59] LABS: ALBUMIN 1.9 g/dl (3.4-5.0); BLOOD UREA NITROGEN 14.1 mg/dL (7-18); CALCIUM 8.9 mg/dL (8.5-10.1); MAGNESIUM 1.6 mg/dL (1.8-2.4)
[2021-07-15 14:02] LABS: CREATININE 1.2 mg/dL (0.55-1.3)
[2021-07-15 14:03] LABS: BILIRUBIN,TOTAL 0.3 mg/dL (0.2-1)
[2021-07-15 14:04] LABS: TOT PROT 5.3 g/dl (6.4-8.2)
[2021-07-15] MEDS ORDERED: MAGNESIUM 2GM/50ML STERILE WATER IVPB IVPB ONE (15:00)
[2021-07-15] MEDS: diphenhydrAMINE HCL 25 MG CAPSULE (FP) PO PRN (22:02)
[2021-07-15] MEDS: LORazepam 0.5 MG TABLET PO PRN (22:02)
[2021-07-16] MEDS: LORazepam 0.5 MG TABLET PO PRN ×3 (05:47→22:36)
[2021-07-16 07:43] LABS: BASO % 1.4 % (0-2.0); EOS % 3.3 % (0-4.5); HEMOGLOBIN 8.2 GM/dL (10.7-15.3); LYMPH % 21.3 % (8-40); MCH 29.3 pg (25.7-33.7); MCHC 31.4 g/dl (32.0-36.0); MEAN CELL VOLUME 93.4 fl (80-96); MEAN PLT VOLUME 8.7 fl (7.5-11.1); MONO % 13.4 % (3.8-10.2); NEUT % 60.6 % (42.8-82.8); PLATELET COUNT 520 10^3/uL (134-434); RBC 2.78 M/mm3 (3.60-5.2); RDW 16.5 % (11.6-15.6); WHITE BLOOD COUNT 14.1 K/mm3 (4.0-10.0)
[2021-07-16 07:59] LABS: ALBUMIN 2.2 g/dl (3.4-5.0); CALCIUM 8.6 mg/dL (8.5-10.1); MAGNESIUM 1.5 mg/dL (1.8-2.4)
[2021-07-16 08:02] LABS: CREATININE 1.3 mg/dL (0.55-1.3)
[2021-07-16 08:03] LABS: PHOSPHOROUS 6.1 mg/dL (2.5-4.9)
[2021-07-16 08:04] LABS: BILIRUBIN,TOTAL 0.2 mg/dL (0.2-1); TOT PROT 6.2 g/dl (6.4-8.2)
[2021-07-16 08:05] LABS: BLOOD UREA NITROGEN 18.2 mg/dL (7-18)
[2021-07-16 08:11] LABS: INR 0.95 (0.83-1.09); PROTHROMBIN TIME (PATIENT) 11.7 SEC (9.7-13.0)
[2021-07-16] MEDS: AMOX TR/POT CLAV 875MG/125MG TABLETS (FP) PO SCH ×2 (08:53→16:49)
[2021-07-16] MEDS: diphenhydrAMINE HCL 25 MG CAPSULE (FP) PO PRN ×2 (08:55→16:49)
[2021-07-16] MEDS: GABAPENTIN 300 MG CAPSULE PO SCH ×2 (09:00→22:36)
[2021-07-16] MEDS: THIAMINE HCL 200 MG/2 ML VIAL IM SCH (09:01)
[2021-07-16] MEDS: PANTOPRAZOLE 40 MG TABLET PO SCH ×2 (09:01→22:36)
[2021-07-16] MEDS: FUROSEMIDE 40 MG TABLET (FP) PO SCH (09:01)
[2021-07-16] MEDS: QUEtiapine FUMARATE 25 MG TABLET PO SCH ×2 (09:01→22:40)
[2021-07-16] MEDS: MAGNESIUM OXIDE 400 MG TABLET (FP) PO SCH ×2 (09:01→22:40)
[2021-07-16] MEDS ORDERED: PT OWN MED DRAWER 7, Y5N ONE (14:00)
[2021-07-16] MEDS: MAG HYDROX/AL HYDROX/SIMETH 30 ML UNIT-DOSE CUP PO SCH ×2 (14:01→22:40)
[2021-07-16] MEDS ORDERED: MAGNESIUM SULF 50% (8.12 MEQ/2 ML-1 GM VIAL) IVPB ONE (14:21)
[2021-07-16] MEDS: ACETAMINOPHEN 325 MG TABLET (FP) PO PRN ×2 (16:50→22:39)
[2021-07-17] MEDS: MAG HYDROX/AL HYDROX/SIMETH 30 ML UNIT-DOSE CUP PO SCH ×4 (02:14→18:17)
[2021-07-17] MEDS: ACETAMINOPHEN 325 MG TABLET (FP) PO PRN ×2 (06:48→18:21)
[2021-07-17] MEDS: diphenhydrAMINE HCL 25 MG CAPSULE (FP) PO PRN ×2 (06:48→18:22)
[2021-07-17] MEDS: AMOX TR/POT CLAV 875MG/125MG TABLETS (FP) PO SCH ×2 (10:00→18:17)
[2021-07-17] MEDS: QUEtiapine FUMARATE 25 MG TABLET PO SCH ×2 (10:00→22:46)
[2021-07-17] MEDS: MAGNESIUM OXIDE 400 MG TABLET (FP) PO SCH ×2 (10:00→22:45)
[2021-07-17] MEDS: GABAPENTIN 300 MG CAPSULE PO SCH ×2 (10:01→22:45)
[2021-07-17] MEDS: THIAMINE HCL 200 MG/2 ML VIAL IM SCH (10:01)
[2021-07-17] MEDS: FUROSEMIDE 20 MG TABLET (FP) PO SCH (10:01)
[2021-07-17] MEDS: PANTOPRAZOLE 40 MG TABLET PO SCH ×2 (10:01→22:45)
[2021-07-17] MEDS: LORazepam 0.5 MG TABLET PO PRN ×2 (10:25→22:45)
[2021-07-17] MEDS: ALBUTEROL SO4 2.5/IPRATROPIUM 0.5 INH SOL 3 ML VIAL.NEB. NEB SCH ×2 (17:03→20:03)
[2021-07-18] MEDS: MAG HYDROX/AL HYDROX/SIMETH 30 ML UNIT-DOSE CUP PO SCH ×3 (02:04→12:48)
[2021-07-18] MEDS: diphenhydrAMINE HCL 25 MG CAPSULE (FP) PO PRN ×2 (02:07→10:53)
[2021-07-18] MEDS: LORazepam 0.5 MG TABLET PO PRN ×2 (07:07→14:31)
[2021-07-18] MEDS: ALBUTEROL SO4 2.5/IPRATROPIUM 0.5 INH SOL 3 ML VIAL.NEB. NEB SCH ×2 (07:45→11:20)
[2021-07-18] MEDS: THIAMINE HCL 200 MG/2 ML VIAL IM SCH (10:46)
[2021-07-18] MEDS: AMOX TR/POT CLAV 875MG/125MG TABLETS (FP) PO SCH (10:47)
[2021-07-18] MEDS: PANTOPRAZOLE 40 MG TABLET PO SCH (10:48)
[2021-07-18] MEDS: QUEtiapine FUMARATE 25 MG TABLET PO SCH (10:48)
[2021-07-18] MEDS: MAGNESIUM OXIDE 400 MG TABLET (FP) PO SCH (10:48)
[2021-07-18] MEDS: FUROSEMIDE 20 MG TABLET (FP) PO SCH (10:48)
[2021-07-18] MEDS: GABAPENTIN 300 MG CAPSULE PO SCH (10:48)
[2021-07-18 14:00] VITALS: BP 118/71; PULSE 86; TEMP 99
== END 2021-07-18 15:51 | disposition home health service (06) | DRG 720 ==
LOC: JER 18:19 → JERBED 22:26 → J4S 07-07 17:46
PROVIDERS: ADMIT Internal Medicine; ATTEND Nurse Practitioner Acute Care
PROC: HZ2ZZZZ Detoxification Services for Substance Abuse Treatment (ICD-10-PCS; principal; 2021-07-06)
PROC: 30233N1 Transfusion of Nonautologous Red Blood Cells into Peripheral Vein, Percutaneous Approach (ICD-10-PCS; 2021-07-06)
PROC: 0DB98ZX Excision of Duodenum, Via Natural or Artificial Opening Endoscopic, Diagnostic (ICD-10-PCS; 2021-07-16)
PROC: 0DB68ZX Excision of Stomach, Via Natural or Artificial Opening Endoscopic, Diagnostic (ICD-10-PCS; 2021-07-16)
PROC: 06L38CZ Occlusion of Esophageal Vein with Extraluminal Device, Via Natural or Artificial Opening Endoscopic (ICD-10-PCS; 2021-07-16)
PROC: 06L28CZ Occlusion of Gastric Vein with Extraluminal Device, Via Natural or Artificial Opening Endoscopic (ICD-10-PCS; 2021-07-16)
DX: A41.89 Other specified sepsis (principal); R00.0 Tachycardia, unspecified; K21.01 Gastro-esophageal reflux disease with esophagitis, with bleeding; F10.230 Alcohol dependence with withdrawal, uncomplicated; F13.20 Sedative, hypnotic or anxiolytic dependence, uncomplicated; F11.20 Opioid dependence, uncomplicated; Y90.6 Blood alcohol level of 120-199 mg/100 ml; F12.20 Cannabis dependence, uncomplicated; K44.9 Diaphragmatic hernia without obstruction or gangrene; K70.30 Alcoholic cirrhosis of liver without ascites; K92.0 Hematemesis; K29.20 Alcoholic gastritis without bleeding; K76.6 Portal hypertension; K31.89 Other diseases of stomach and duodenum; B95.62 Methicillin resistant Staphylococcus aureus infection as the cause of diseases classified elsewhere; K70.0 Alcoholic fatty liver; E83.51 Hypocalcemia; D50.0 Iron deficiency anemia secondary to blood loss (chronic); F19.94 Other psychoactive substance use, unspecified with psychoactive substance-induced mood disorder; E46 Unspecified protein-calorie malnutrition; Z68.28 Body mass index [BMI] 28.0-28.9, adult; I85.00 Esophageal varices without bleeding; D72.829 Elevated white blood cell count, unspecified; G40.909 Epilepsy, unspecified, not intractable, without status epilepticus; B18.1 Chronic viral hepatitis B without delta-agent; K70.10 Alcoholic hepatitis without ascites; E87.6 Hypokalemia; G47.00 Insomnia, unspecified; E87.70 Fluid overload, unspecified; N17.9 Acute kidney failure, unspecified; I12.9 Hypertensive chronic kidney disease with stage 1 through stage 4 chronic kidney disease, or unspecified chronic kidney disease; N18.9 Chronic kidney disease, unspecified; Z91.19 Patient's noncompliance with other medical treatment and regimen
CPT/HCPCS: 36415; 36430; 71045-TC-FY; 76937; 80048; 80053; 80076; 80307; 81003; 82272; 82550; 82962; 83735; 83880; 84100; 84484; 84703; 85025; 85610; 85730; 86850; 86900; 86901; 86922; 87040; 88305-TC; 93005; 93010; 93306-TC; 94640; 94761; 99285-25; C9803; P9058; Q0162; U0003; U0005

== ENCOUNTER 2021-08-16 15:01 | Inpatient (IN) | payer OTHER ==
[2021-08-16] MEDS ORDERED: LACTATED RINGERS SOLUTION 1000 ML INFUS.BAG IV ONE (15:22)
[2021-08-16] MEDS ORDERED: ONDANSETRON 4 MG/2 ML VIAL IVPUSH ONE (15:25)
[2021-08-16] MEDS ORDERED: PANTOPRAZOLE SODIUM 40 MG VIAL IVPUSH ONE ×2 (16:13→16:42)
[2021-08-16] MEDS ORDERED: CEFTRIAXONE 1,000 MG in DEXTROSE 5%-WATER - 50 ML IVPB ONE (16:42)
[2021-08-16] MEDS ORDERED: diazePAM CARPU-JECT 10 MG/2 ML DISP.SYRIN IVPUSH ONE (16:45)
[2021-08-16 16:47] LABS: BASO % 0.8 % (0-2.0); HEMOGLOBIN 8.9 GM/dL (10.7-15.3); LYMPH % 17.2 % (8-40); MCH 25.4 pg (25.7-33.7); MCHC 30.6 g/dl (32.0-36.0); MEAN CELL VOLUME 83.1 fl (80-96); MONO % 7.7 % (3.8-10.2); NEUT % 74.3 % (42.8-82.8); PLATELET COUNT 417 10^3/uL (134-434); RBC 3.49 M/mm3 (3.60-5.2); RDW 19.7 % (11.6-15.6); WHITE BLOOD COUNT 14.3 K/mm3 (4.0-10.0)
[2021-08-16 17:03] LABS: ALBUMIN 2.6 g/dl (3.4-5.0); BLOOD UREA NITROGEN 4.4 mg/dL (7-18)
[2021-08-16 17:08] LABS: BILIRUBIN,TOTAL 0.4 mg/dL (0.2-1); TOT PROT 7.7 g/dl (6.4-8.2)
[2021-08-16] MEDS ORDERED: OCTREOTIDE ACETATE 50 MCG/1 ML - 1 ML VIAL IVPUSH ONE (17:09)
[2021-08-16] MEDS ORDERED: ONDANSETRON 4 MG/2 ML VIAL ONE (17:15)
[2021-08-16] MEDS ORDERED: diazePAM CARPU-JECT 10 MG/2 ML DISP.SYRIN ONE (17:15)
[2021-08-16] MEDS ORDERED: PANTOPRAZOLE SODIUM 40 MG/100 ML BAG IVPB ONE (17:15)
[2021-08-16] MEDS ORDERED: OCTREOTIDE ACETATE 100 MCG/1 ML ONE (17:16)
[2021-08-16 17:19] LABS: INR 1.03 (0.83-1.09)
[2021-08-16 17:22] LABS: ACTIVATED PTT 21.7 SECONDS (25.2-36.5)
[2021-08-16 20:17] LABS: MAGNESIUM 1.8 mg/dL (1.8-2.4)
[2021-08-16] MEDS ORDERED: LORazepam 2 MG/ML SDV VIAL IVPUSH ONE (20:23)
[2021-08-16] MEDS ORDERED: LORazepam 2 MG/ML SDV VIAL ONE (20:29)
[2021-08-16] MEDS ORDERED: FOLIC ACID INJECTION - 1 MG, THIAMINE HCL 100 MG, MULTIVIT INJECTION ADULT 10 ML in SOD... IVPB ONE (20:56)
[2021-08-16] MEDS ORDERED: LORazepam 1 MG TABLET ONE (22:58)
[2021-08-16] MEDS ORDERED: OCTREOTIDE ACETATE 200 MCG, OCTREOTIDE ACETATE 1,000 MCG in DEXTROSE 5%-WATER - 496 ML IVPB SCH (23:00)
[2021-08-16] MEDS: LORazepam 1 MG TABLET PO SCH (23:17)
[2021-08-17 02:05] LABS: EPI CELLS >36 /uL (0-25.1); HYALINE CASTS 2 /uL (0-3.1); URINE APPEARANCE CLOUDY; URINE BACTERIA 2047 /uL (0-1359); URINE BILIRUBIN NEGATIVE (NEGATIVE); URINE COLOR YELLOW; URINE GLUCOSE (UA) NEGATIVE (NEGATIVE); URINE KETONE NEGATIVE (NEGATIVE); URINE LEUK ESTERASE TRACE (NEGATIVE); URINE NITRITE NEGATIVE (NEGATIVE); URINE PROTEIN 3+ (NEGATIVE); URINE WBC 33 /uL (0-25.8)
[2021-08-17 02:11] LABS: OPIATES, URI NEGATIVE (NEGATIVE); URINE BARBITURATES NEGATIVE (NEGATIVE)
[2021-08-17 02:12] LABS: PHENCYCLIDINE,URINE NEGATIVE (NEGATIVE)
[2021-08-17 02:33] LABS: COCAINE, UR POSITIVE (NEGATIVE); METHADONE, UR POSITIVE (NEGATIVE); URINE AMPHETAMINES NEGATIVE (NEGATIVE); URINE BENZODIAZEPINES POSITIVE (NEGATIVE)
[2021-08-17] MEDS ORDERED: PANTOPRAZOLE SODIUM 80 MG/200 ML BAG IVPB ONE (03:31)
[2021-08-17] MEDS ORDERED: LORazepam 1 MG TABLET ONE (03:35)
[2021-08-17] MEDS: LORazepam 1 MG TABLET PO PRN ×4 (03:47→20:33)
[2021-08-17] MEDS: PANTOPRAZOLE SODIUM 80 MG in SODIUM CHLORIDE 100 ML IVPB SCH ×3 (03:47→10:18)
[2021-08-17] MEDS: TRIMETHOBENZAMIDE HCL 200MG/2ML INJ IM PRN (05:46)
[2021-08-17] MEDS: LORazepam 1 MG TABLET PO SCH ×4 (06:04→22:17)
[2021-08-17 07:00] LABS: URINE RBC 54.8 /uL (0-23.9)
[2021-08-17 07:43] VITALS: BMI 32.1
[2021-08-17] MEDS ORDERED: OCTREOTIDE ACETATE 200 MCG, OCTREOTIDE ACETATE 1,000 MCG in DEXTROSE 5%-WATER - 496 ML IVPB SCH (09:00)
[2021-08-17] MEDS: FOLIC ACID 1 MG TABLET (FP) PO SCH (09:16)
[2021-08-17] MEDS: THIAMINE HCL 200 MG/2 ML VIAL IVPB SCH (09:20)
[2021-08-17] MEDS: MULTIVITAMINS (DAILY MVI) TABLET (FP) PO SCH (14:44)
[2021-08-17] MEDS: PANTOPRAZOLE 40 MG TABLET PO SCH (22:16)
[2021-08-18] MEDS: LORazepam 1 MG TABLET PO PRN ×2 (01:02→12:43)
[2021-08-18] MEDS ORDERED: LORazepam 2 MG/ML SDV VIAL IM ONE (01:30)
[2021-08-18] MEDS: TRIMETHOBENZAMIDE HCL 200MG/2ML INJ IM PRN ×2 (01:51→07:39)
[2021-08-18] MEDS: LORazepam 1 MG TABLET PO SCH ×2 (04:51→10:08)
[2021-08-18] MEDS ORDERED: LORazepam 1 MG TABLET PO ONE (05:18)
[2021-08-18] MEDS ORDERED: LORazepam 0.5 MG TABLET ONE (05:28)
[2021-08-18] MEDS ORDERED: PT OWN MED DRAWER 7, Y5N ONE (07:28)
[2021-08-18 10:00] LABS: HEMOGLOBIN 8.3 GM/dL (10.7-15.3); RBC 3.18 M/mm3 (3.60-5.2); WHITE BLOOD COUNT 12.5 K/mm3 (4.0-10.0)
[2021-08-18 10:01] LABS: HEMATOCRIT 26.4 % (32.4-45.2); MCH 26.3 pg (25.7-33.7); MCHC 31.6 g/dl (32.0-36.0); MEAN CELL VOLUME 83.2 fl (80-96); MEAN PLT VOLUME 8.1 fl (7.5-11.1); PLATELET COUNT 370 10^3/uL (134-434); RDW 19.9 % (11.6-15.6)
[2021-08-18] MEDS: THIAMINE HCL 200 MG/2 ML VIAL IVPB SCH (10:10)
[2021-08-18] MEDS: PANTOPRAZOLE 40 MG TABLET PO SCH (10:10)
[2021-08-18] MEDS: FOLIC ACID 1 MG TABLET (FP) PO SCH (10:10)
[2021-08-18] MEDS: MULTIVITAMINS (DAILY MVI) TABLET (FP) PO SCH (10:10)
[2021-08-18 10:16] VITALS: BP 146/98; PULSE 90; TEMP 98.3
[2021-08-18 10:39] LABS: CALCIUM 7.9 mg/dL (8.5-10.1)
[2021-08-18 10:40] LABS: ALBUMIN 2.4 g/dl (3.4-5.0); BLOOD UREA NITROGEN 9.2 mg/dL (7-18); MAGNESIUM 1.6 mg/dL (1.8-2.4)
[2021-08-18 10:43] LABS: CREATININE 0.9 mg/dL (0.55-1.3); PHOSPHOROUS 4.4 mg/dL (2.5-4.9)
[2021-08-18 10:44] LABS: BILIRUBIN,TOTAL 1.2 mg/dL (0.2-1)
[2021-08-19] MEDS ORDERED: LORazepam 0.5 MG TABLET PO PRN
[2021-08-19] MEDS ORDERED: LORazepam 0.5 MG TABLET PO SCH (05:00)
[2021-08-20] MEDS ORDERED: LORazepam 0.5 MG TABLET PO ONE (05:00)
== END 2021-08-18 13:10 | disposition left against medical advice (07) | DRG 280 ==
LOC: JER 15:01 → JERBED 19:49 → J5S 08-17 04:58
PROVIDERS: ADMIT Internal Medicine; ATTEND Internal Medicine
PROC: HZ2ZZZZ Detoxification Services for Substance Abuse Treatment (ICD-10-PCS; principal; 2021-08-16)
DX: K70.30 Alcoholic cirrhosis of liver without ascites (principal); F10.239 Alcohol dependence with withdrawal, unspecified; K92.2 Gastrointestinal hemorrhage, unspecified; R11.2 Nausea with vomiting, unspecified; K21.9 Gastro-esophageal reflux disease without esophagitis; K31.89 Other diseases of stomach and duodenum; B19.20 Unspecified viral hepatitis C without hepatic coma; B19.10 Unspecified viral hepatitis B without hepatic coma; I85.11 Secondary esophageal varices with bleeding; I10 Essential (primary) hypertension; G40.909 Epilepsy, unspecified, not intractable, without status epilepticus; F19.10 Other psychoactive substance abuse, uncomplicated; W18.39XA Other fall on same level, initial encounter; Y92.230 Patient room in hospital as the place of occurrence of the external cause
CPT/HCPCS: 36415; 70450-TC; 71045-TC-FY; 80053; 80307; 81003; 82272; 83690; 83735; 84100; 84703; 85025; 85027; 85610; 85730; 86850; 86900; 86901; 87086; 87186; 93005; 93010; 99285-25; C9803; U0003; U0005

== ENCOUNTER 2021-08-30 02:05 | Inpatient (IN) | payer OTHER ==
[2021-08-30] MEDS ORDERED: PANTOPRAZOLE SODIUM 40 MG VIAL IVPUSH ONE ×2 (02:33→03:18)
[2021-08-30] MEDS ORDERED: ONDANSETRON 4 MG/2 ML VIAL IVPUSH ONE ×2 (02:35→04:59)
[2021-08-30] MEDS ORDERED: diazePAM 5 MG TABLET PO ONE (02:35)
[2021-08-30] MEDS ORDERED: OCTREOTIDE ACETATE 50 MCG/1 ML - 1 ML VIAL IVPUSH ONE ×2 (02:36→08:29)
[2021-08-30 02:43] VITALS: BMI 33.6
[2021-08-30] MEDS ORDERED: ONDANSETRON 4 MG/2 ML VIAL ONE ×2 (03:00→05:02)
[2021-08-30] MEDS ORDERED: PANTOPRAZOLE SODIUM 40 MG VIAL ONE ×2 (03:00→08:55)
[2021-08-30] MEDS ORDERED: OCTREOTIDE ACETATE 100 MCG/1 ML ONE ×2 (03:07→10:12)
[2021-08-30] MEDS ORDERED: LORazepam 2 MG/ML SDV VIAL ONE ×3 (03:12→10:36)
[2021-08-30] MEDS ORDERED: LORazepam 2 MG/ML SDV VIAL IVPUSH ONE ×2 (03:15→07:50)
[2021-08-30 03:30] LABS: BASO % 0.6 % (0-2.0); EOS % 0.2 % (0-4.5); HEMATOCRIT 27.1 % (32.4-45.2); HEMOGLOBIN 8.6 GM/dL (10.7-15.3); LYMPH % 16.7 % (8-40); MCH 25.4 pg (25.7-33.7); MCHC 31.6 g/dl (32.0-36.0); MEAN CELL VOLUME 80.4 fl (80-96); MEAN PLT VOLUME 8.3 fl (7.5-11.1); MONO % 8.8 % (3.8-10.2); NEUT % 73.7 % (42.8-82.8); PLATELET COUNT 366 10^3/uL (134-434); RBC 3.37 M/mm3 (3.60-5.2); RDW 21.1 % (11.6-15.6)
[2021-08-30 03:47] LABS: CHLORIDE 103 mmol/L (98-107); SODIUM 141 mmol/L (136-145)
[2021-08-30 03:50] LABS: ANION GAP 9 MMOL/L (8-16); CALCIUM 7.7 mg/dL (8.5-10.1); CO2 28 mmol/L (21-32); GLUCOSE,RANDOM 111 mg/dL (74-106); LIPASE 827 U/L (73-393)
[2021-08-30 03:51] LABS: ALBUMIN 2.4 g/dl (3.4-5.0); BLOOD UREA NITROGEN 12.8 mg/dL (7-18); MAGNESIUM 1.6 mg/dL (1.8-2.4)
[2021-08-30 03:53] LABS: CREATININE 0.9 mg/dL (0.55-1.3); PHOSPHOROUS 4.1 mg/dL (2.5-4.9); SGOT/AST 151 U/L (15-37); SGPT/ALT 48 U/L (13-61)
[2021-08-30 03:55] LABS: BILIRUBIN,TOTAL 0.6 mg/dL (0.2-1); TOT PROT 7.7 g/dl (6.4-8.2)
[2021-08-30 04:26] LABS: BASO % 0.7 % (0-2.0); EOS % 0.2 % (0-4.5); HEMATOCRIT 25.9 % (32.4-45.2); HEMOGLOBIN 8.1 GM/dL (10.7-15.3); LYMPH % 11.2 % (8-40); MCH 25.4 pg (25.7-33.7); MCHC 31.3 g/dl (32.0-36.0); MEAN CELL VOLUME 81.2 fl (80-96); MEAN PLT VOLUME 8.2 fl (7.5-11.1); MONO % 7.6 % (3.8-10.2); NEUT % 80.3 % (42.8-82.8); PLATELET COUNT 396 10^3/uL (134-434); RBC 3.19 M/mm3 (3.60-5.2); RDW 21.4 % (11.6-15.6); WHITE BLOOD COUNT 13.1 K/mm3 (4.0-10.0)
[2021-08-30 04:34] LABS: INR 1.09 (0.83-1.09); PROTHROMBIN TIME (PATIENT) 12.8 SEC (9.7-13.0)
[2021-08-30 04:39] LABS: ALBUMIN 2.3 g/dl (3.4-5.0); CALCIUM 7.4 mg/dL (8.5-10.1)
[2021-08-30 04:40] LABS: BLOOD UREA NITROGEN 13.3 mg/dL (7-18)
[2021-08-30 04:43] LABS: CREATININE 0.9 mg/dL (0.55-1.3)
[2021-08-30 04:44] LABS: BILIRUBIN,TOTAL 0.5 mg/dL (0.2-1); TOT PROT 7.3 g/dl (6.4-8.2)
[2021-08-30] MEDS ORDERED: LACTATED RINGERS SOLUTION 1000 ML INFUS.BAG IV ONE ×2 (04:47→04:58)
[2021-08-30 04:51] LABS: LACTIC ACID 3.5 mmol/L (0.4-2.0)
[2021-08-30 04:54] LABS: ALK PHOS 450 U/L (45-117)
[2021-08-30] MEDS ORDERED: MAGNESIUM SULF 50% (8.12 MEQ/2 ML-1 GM VIAL) IVPB ONE ×2 (04:58)
[2021-08-30] MEDS ORDERED: MAGNESIUM SULFATE IN WATER 2 GM/50 ML IVPB IVPB ONE (06:38)
[2021-08-30] MEDS ORDERED: CEFTRIAXONE 1,000 MG in DEXTROSE 5%-WATER - 50 ML IVPB ONE (06:39)
[2021-08-30] MEDS ORDERED: PANTOPRAZOLE SODIUM 80 MG in SODIUM CHLORIDE 100 ML IVPB SCH (08:22)
[2021-08-30] MEDS ORDERED: SODIUM CHLORIDE 1,000 ML IV SCH (08:30)
[2021-08-30 08:51] LABS: ANISOCYTOSIS 1+; MACROCYTOSIS 1+; PLATELET ESTIMATE NORMAL
[2021-08-30] MEDS ORDERED: PT OWN MED DRAWER 7, Y5N ONE (08:54)
[2021-08-30] MEDS ORDERED: CEFTRIAXONE 1 GM/50 ML BAG ONE (08:54)
[2021-08-30] MEDS ORDERED: OCTREOTIDE ACETATE 200 MCG, OCTREOTIDE ACETATE 1,000 MCG in DEXTROSE 5%-WATER - 496 ML IVPB SCH (09:30)
[2021-08-30] MEDS: LORazepam 2 MG/ML SDV VIAL IVPUSH SCH ×3 (10:45→22:22)
[2021-08-30] MEDS ORDERED: OCTREOTIDE ACETATE 500 MCG/1 ML - 1 ML VIAL ONE (12:09)
[2021-08-30] MEDS ORDERED: MIDAZOLAM HCL 2 MG/2 ML SINGLE DOSE VIAL ONE (14:13)
[2021-08-30] MEDS: LORazepam 2 MG/ML SDV VIAL IVPUSH PRN (15:36)
[2021-08-30] MEDS: LACTATED RINGERS SOLUTION 1,000 ML/1,000 ML INFUS.BAG IV SCH (15:39)
[2021-08-30] MEDS: PANTOPRAZOLE SODIUM 40 MG VIAL IVPUSH SCH (21:32)
[2021-08-30] MEDS ORDERED: PANTOPRAZOLE 40 MG TABLET PO SCH (22:00)
[2021-08-31] MEDS: LORazepam 2 MG/ML SDV VIAL IVPUSH PRN ×2 (02:37→06:59)
[2021-08-31] MEDS: LORazepam 2 MG/ML SDV VIAL IVPUSH SCH ×4 (05:00→22:39)
[2021-08-31] MEDS: ONDANSETRON 4 MG/2 ML VIAL IVPUSH PRN ×3 (07:19→22:40)
[2021-08-31] MEDS ORDERED: ACETAMINOPHEN 1000 MG/100 ML VIAL IVPB PRN (09:09)
[2021-08-31] MEDS ORDERED: methaDONE HCL 10 MG TABLET PO ONE (09:45)
[2021-08-31] MEDS: PANTOPRAZOLE SODIUM 40 MG VIAL IVPUSH SCH ×2 (09:48→21:33)
[2021-08-31] MEDS: FUROSEMIDE 20 MG TABLET (FP) PO SCH (14:20)
[2021-08-31] MEDS: GABAPENTIN 300 MG CAPSULE PO SCH ×2 (14:20→21:33)
[2021-08-31] MEDS: LACTATED RINGERS SOLUTION 1,000 ML/1,000 ML INFUS.BAG IV SCH (14:21)
[2021-08-31] MEDS: QUEtiapine FUMARATE 25 MG TABLET PO SCH (21:33)
[2021-09-01] MEDS: LORazepam 2 MG/ML SDV VIAL IVPUSH PRN ×4 (04:04→22:00)
[2021-09-01 08:02] LABS: BASO % 0.9 % (0-2.0); EOS % 2.8 % (0-4.5); HEMATOCRIT 22.2 % (32.4-45.2); LYMPH % 32.2 % (8-40); MCH 25.1 pg (25.7-33.7); MEAN CELL VOLUME 80.9 fl (80-96); MEAN PLT VOLUME 8.7 fl (7.5-11.1); MONO % 8.3 % (3.8-10.2); NEUT % 55.8 % (42.8-82.8); PLATELET COUNT 338 10^3/uL (134-434); RBC 2.74 M/mm3 (3.60-5.2); WHITE BLOOD COUNT 10.8 K/mm3 (4.0-10.0)
[2021-09-01 08:30] LABS: HEMOGLOBIN 6.9 GM/dL (10.7-15.3)
[2021-09-01] MEDS ORDERED: methaDONE HCL 10 MG TABLET ONE (09:03)
[2021-09-01] MEDS: GABAPENTIN 300 MG CAPSULE PO SCH ×2 (09:11→21:53)
[2021-09-01] MEDS: FOLIC ACID 1 MG TABLET (FP) PO SCH (09:12)
[2021-09-01] MEDS: FUROSEMIDE 20 MG TABLET (FP) PO SCH (09:12)
[2021-09-01] MEDS: THIAMINE HCL 100 MG TABLET (FP) PO SCH (09:12)
[2021-09-01] MEDS: MULTIVITAMINS (DAILY MVI) TABLET (FP) PO SCH (09:12)
[2021-09-01] MEDS: PANTOPRAZOLE SODIUM 40 MG VIAL IVPUSH SCH ×2 (09:18→21:53)
[2021-09-01 12:02] LABS: INR 1.07 (0.83-1.09)
[2021-09-01 12:21] LABS: CALCIUM 7.5 mg/dL (8.5-10.1)
[2021-09-01 12:22] LABS: ALBUMIN 2.1 g/dl (3.4-5.0); MAGNESIUM 1.8 mg/dL (1.8-2.4)
[2021-09-01 12:25] LABS: CREATININE 1.1 mg/dL (0.55-1.3)
[2021-09-01 12:26] LABS: BILIRUBIN,TOTAL 0.4 mg/dL (0.2-1); TOT PROT 6.2 g/dl (6.4-8.2)
[2021-09-01] MEDS ORDERED: MAGNESIUM OXIDE 400 MG TABLET (FP) PO ONE (15:23)
[2021-09-01] MEDS ORDERED: IRON SUCROSE INJECTION 200 MG in SODIUM CHLORIDE 90 ML IVPB ONE (15:26)
[2021-09-01] MEDS ORDERED: POTASSIUM CHLORIDE TABS 20 MEQ TABLET.ER (FP) PO ONE (15:27)
[2021-09-01] MEDS ORDERED: PT OWN MED DRAWER 7, Y5N ONE (16:28)
[2021-09-01] MEDS: cloNIDine HCL 0.1 MG TABLET PO PRN (16:30)
[2021-09-01] MEDS: QUEtiapine FUMARATE 25 MG TABLET PO SCH (21:53)
[2021-09-02] MEDS: LORazepam 2 MG/ML SDV VIAL IVPUSH PRN ×2 (06:58→11:10)
[2021-09-02] MEDS: PANTOPRAZOLE SODIUM 40 MG VIAL IVPUSH SCH (09:40)
[2021-09-02] MEDS: GABAPENTIN 300 MG CAPSULE PO SCH (09:42)
[2021-09-02] MEDS: THIAMINE HCL 100 MG TABLET (FP) PO SCH (09:42)
[2021-09-02] MEDS: FOLIC ACID 1 MG TABLET (FP) PO SCH (09:42)
[2021-09-02] MEDS: MULTIVITAMINS (DAILY MVI) TABLET (FP) PO SCH (09:43)
[2021-09-02] MEDS: FUROSEMIDE 20 MG TABLET (FP) PO SCH (09:43)
[2021-09-02] MEDS: cloNIDine HCL 0.1 MG TABLET PO PRN (09:54)
[2021-09-02] MEDS ORDERED: methaDONE HCL 10 MG TABLET PO ONE ×2 (10:00→11:31)
[2021-09-02 10:51] VITALS: BP 128/64; PULSE 112; TEMP 98.5
[2021-09-02 11:47] LABS: BASO % 0.9 % (0-2.0); EOS % 2.7 % (0-4.5); HEMATOCRIT 24.6 % (32.4-45.2); HEMOGLOBIN 7.4 GM/dL (10.7-15.3); LYMPH % 27.8 % (8-40); MCH 25.6 pg (25.7-33.7); MCHC 30.2 g/dl (32.0-36.0); MEAN CELL VOLUME 84.7 fl (80-96); MEAN PLT VOLUME 9.3 fl (7.5-11.1); MONO % 7.5 % (3.8-10.2); NEUT % 61.1 % (42.8-82.8); PLATELET COUNT 281 10^3/uL (134-434); WHITE BLOOD COUNT 12.1 K/mm3 (4.0-10.0)
[2021-09-02 11:51] LABS: INR 0.97 (0.83-1.09); PROTHROMBIN TIME (PATIENT) 11.3 SEC (9.7-13.0)
[2021-09-02 12:03] LABS: CALCIUM 7.9 mg/dL (8.5-10.1)
[2021-09-02 12:04] LABS: ALBUMIN 2.2 g/dl (3.4-5.0); BLOOD UREA NITROGEN 8.8 mg/dL (7-18)
[2021-09-02 12:06] LABS: CREATININE 1.3 mg/dL (0.55-1.3)
[2021-09-02 12:08] LABS: BILIRUBIN,TOTAL 0.4 mg/dL (0.2-1); TOT PROT 6.7 g/dl (6.4-8.2)
[2021-09-02 12:44] LABS: ANISOCYTOSIS 2+; MACROCYTOSIS 1+; PLATELET ESTIMATE NORMAL
[2021-09-03] MEDS ORDERED: methaDONE HCL 10 MG TABLET PO SCH (06:00)
[2021-09-04] MEDS ORDERED: methaDONE HCL 10 MG TABLET PO ONE (10:00)
== END 2021-09-02 13:52 | disposition other institution (70) | DRG 241 ==
LOC: JER 02:05 → JERBED 03:57 → J4W 15:25
PROVIDERS: ADMIT Internal Medicine; ATTEND Nurse Practitioner Acute Care
PROC: HZ2ZZZZ Detoxification Services for Substance Abuse Treatment (ICD-10-PCS; 2021-08-30)
PROC: 0DJ08ZZ Inspection of Upper Intestinal Tract, Via Natural or Artificial Opening Endoscopic (ICD-10-PCS; principal; 2021-08-30 13:45)
DX: K29.21 Alcoholic gastritis with bleeding (principal); E87.2 Acidosis; M62.82 Rhabdomyolysis; B19.10 Unspecified viral hepatitis B without hepatic coma; D62 Acute posthemorrhagic anemia; E83.42 Hypomagnesemia; F10.232 Alcohol dependence with withdrawal with perceptual disturbance; F17.210 Nicotine dependence, cigarettes, uncomplicated; F19.20 Other psychoactive substance dependence, uncomplicated; F41.9 Anxiety disorder, unspecified; G40.909 Epilepsy, unspecified, not intractable, without status epilepticus; I10 Essential (primary) hypertension; I16.0 Hypertensive urgency; K21.9 Gastro-esophageal reflux disease without esophagitis; K76.0 Fatty (change of) liver, not elsewhere classified; R11.2 Nausea with vomiting, unspecified; R74.01 Elevation of levels of liver transaminase levels; E87.70 Fluid overload, unspecified; K44.9 Diaphragmatic hernia without obstruction or gangrene
CPT/HCPCS: 36415; 71045-TC-FY; 74177-TC; 80053; 82272; 82728; 82962; 83540; 83550; 83605; 83690; 83735; 84100; 84443; 84484; 84703; 85025; 85610; 85730; 86850; 86900; 86901; 93005; 93010; 99285-25; C9803; J0735; J1756; U0003; U0005

== ENCOUNTER 2021-09-02 14:37 | Inpatient (IN) | payer OTHER ==
[2021-09-02] MEDS ORDERED: MENTHOL/PHENOL 1 EACH UD MM PRN (17:15)
[2021-09-02] MEDS ORDERED: MAGNESIUM CITRATE 300 ML BOTTLE PO PRN (17:15)
[2021-09-02] MEDS ORDERED: diazePAM 5 MG TABLET PO ONE (17:15)
[2021-09-02] MEDS ORDERED: NICOTINE POLACRILEX 4 MG GUM BUC PRN (17:15)
[2021-09-02] MEDS ORDERED: MAGNESIUM HYDROX 2400MG/30ML ORAL SUSPENSION 30 ML CUP PO PRN (17:15)
[2021-09-02] MEDS ORDERED: BISMUTH SUBSALICYLATE 524 MG/30 ML PO PRN (17:15)
[2021-09-02] MEDS ORDERED: ONDANSETRON *ODT* 4 MG TABLET SL PRN (17:15)
[2021-09-02] MEDS ORDERED: MAG HYDROX/AL HYDROX/SIMETH 30 ML UNIT-DOSE CUP PO PRN (17:15)
[2021-09-02] MEDS ORDERED: ALBUTEROL SO4 HFA INHALER IH PRN (17:20)
[2021-09-02 18:11] VITALS: BMI 33.1
[2021-09-02] MEDS: cloNIDine HCL 0.1 MG TABLET PO PRN (18:36)
[2021-09-02] MEDS: LIDOCAINE 5% TOPICAL PATCH TP SCH (18:37)
[2021-09-02] MEDS: PRENATAL VITAMINS W/ FOLIC ACID TABLET (FP) PO SCH (18:38)
[2021-09-02] MEDS: NICOTINE 21 MG/24 HOURS TOPICAL PATCH TD SCH (18:38)
[2021-09-02] MEDS: NICOTINE 10 MG CARTRIDGE (INHALER) IH PRN (18:39)
[2021-09-02] MEDS ORDERED: QUEtiapine FUMARATE 25 MG TABLET PO ONE (22:00)
[2021-09-02] MEDS: THIAMINE HCL 100 MG TABLET (FP) PO SCH (22:08)
[2021-09-02] MEDS: PANTOPRAZOLE 40 MG TABLET PO SCH (22:08)
[2021-09-02] MEDS: GABAPENTIN 300 MG CAPSULE PO SCH (22:08)
[2021-09-02] MEDS: diazePAM 5 MG TABLET PO SCH (22:09)
[2021-09-02] MEDS: LIDOCAINE PATCH REMOVAL MC SCH (22:09)
[2021-09-02] MEDS: MELATONIN 5 MG TABLETS PO SCH (22:09)
[2021-09-02] MEDS: FERROUS GLUCONATE 324 MG TAB (FP) PO SCH (23:28)
[2021-09-03] MEDS: diazePAM 5 MG TABLET PO PRN ×4 (00:37→19:31)
[2021-09-03] MEDS: diazePAM 5 MG TABLET PO SCH ×4 (06:46→22:23)
[2021-09-03] MEDS: cloNIDine HCL 0.1 MG TABLET PO PRN (08:43)
[2021-09-03] MEDS ORDERED: methaDONE HCL 10 MG TABLET (FOR DETOX USE ONLY) ONE (09:30)
[2021-09-03] MEDS: NICOTINE 10 MG CARTRIDGE (INHALER) IH PRN ×2 (09:44→22:38)
[2021-09-03] MEDS: PANTOPRAZOLE 40 MG TABLET PO SCH ×2 (10:34→22:23)
[2021-09-03] MEDS: GABAPENTIN 300 MG CAPSULE PO SCH ×2 (10:35→22:23)
[2021-09-03] MEDS: FUROSEMIDE 20 MG TABLET (FP) PO SCH (10:35)
[2021-09-03] MEDS: FERROUS GLUCONATE 324 MG TAB (FP) PO SCH ×2 (10:35→22:23)
[2021-09-03] MEDS: NICOTINE 21 MG/24 HOURS TOPICAL PATCH TD SCH (10:47)
[2021-09-03] MEDS: PRENATAL VITAMINS W/ FOLIC ACID TABLET (FP) PO SCH (10:48)
[2021-09-03] MEDS: QUEtiapine FUMARATE 25 MG TABLET PO SCH (10:50)
[2021-09-03] MEDS: LIDOCAINE 5% TOPICAL PATCH TP SCH (10:52)
[2021-09-03] MEDS: METHOCARBAMOL 500 MG TABLET PO PRN (14:24)
[2021-09-03 14:35] LABS: URINE APPEARANCE CLEAR; URINE BILIRUBIN NEGATIVE (NEGATIVE); URINE COLOR YELLOW; URINE GLUCOSE (UA) NEGATIVE (NEGATIVE); URINE KETONE NEGATIVE (NEGATIVE); URINE LEUK ESTERASE NEGATIVE (NEGATIVE); URINE NITRITE NEGATIVE (NEGATIVE); URINE PROTEIN NEGATIVE (NEGATIVE)
[2021-09-03 14:56] LABS: HEMATOCRIT 24.7 % (32.4-45.2); HEMOGLOBIN 7.1 GM/dL (10.7-15.3); MCH 25.2 pg (25.7-33.7); MCHC 28.8 g/dl (32.0-36.0); MEAN CELL VOLUME 87.5 fl (80-96); MEAN PLT VOLUME 9.6 fl (7.5-11.1); PLATELET COUNT 316 10^3/uL (134-434); RBC 2.83 M/mm3 (3.60-5.2); RDW 23.2 % (11.6-15.6)
[2021-09-03] MEDS: MELATONIN 5 MG TABLETS PO SCH (22:23)
[2021-09-03] MEDS: THIAMINE HCL 100 MG TABLET (FP) PO SCH (22:23)
[2021-09-03] MEDS: QUEtiapine FUMARATE 50 MG TABLET PO SCH (22:23)
[2021-09-03] MEDS: LIDOCAINE PATCH REMOVAL MC SCH (23:18)
[2021-09-04] MEDS: diazePAM 5 MG TABLET PO PRN (03:45)
[2021-09-04] MEDS: diazePAM 5 MG TABLET PO SCH ×3 (07:13→22:18)
[2021-09-04] MEDS ORDERED: methaDONE HCL 10 MG TABLET (FOR DETOX USE ONLY) PO ONE (10:00)
[2021-09-04] MEDS: FERROUS GLUCONATE 324 MG TAB (FP) PO SCH ×2 (10:34→22:16)
[2021-09-04] MEDS: PANTOPRAZOLE 40 MG TABLET PO SCH ×2 (10:34→22:17)
[2021-09-04] MEDS: PRENATAL VITAMINS W/ FOLIC ACID TABLET (FP) PO SCH (10:34)
[2021-09-04] MEDS: FUROSEMIDE 20 MG TABLET (FP) PO SCH (10:35)
[2021-09-04] MEDS: LIDOCAINE 5% TOPICAL PATCH TP SCH (10:35)
[2021-09-04] MEDS: GABAPENTIN 300 MG CAPSULE PO SCH ×2 (10:35→22:17)
[2021-09-04] MEDS: QUEtiapine FUMARATE 25 MG TABLET PO SCH (10:36)
[2021-09-04] MEDS: NICOTINE 21 MG/24 HOURS TOPICAL PATCH TD SCH (10:41)
[2021-09-04] MEDS: NICOTINE 10 MG CARTRIDGE (INHALER) IH PRN ×2 (11:53→20:38)
[2021-09-04] MEDS: cloNIDine HCL 0.1 MG TABLET PO PRN (20:38)
[2021-09-04] MEDS: MELATONIN 5 MG TABLETS PO SCH (22:17)
[2021-09-04] MEDS: QUEtiapine FUMARATE 50 MG TABLET PO SCH (22:17)
[2021-09-04] MEDS: LIDOCAINE PATCH REMOVAL MC SCH (22:17)
[2021-09-04] MEDS: THIAMINE HCL 100 MG TABLET (FP) PO SCH (22:17)
[2021-09-05] MEDS: diazePAM 5 MG TABLET PO SCH ×2 (06:37→17:45)
[2021-09-05] MEDS: NICOTINE 10 MG CARTRIDGE (INHALER) IH PRN ×3 (07:57→22:22)
[2021-09-05] MEDS: diazePAM 5 MG TABLET PO PRN ×2 (08:57→13:48)
[2021-09-05] MEDS: METHOCARBAMOL 500 MG TABLET PO PRN ×2 (08:58→22:21)
[2021-09-05] MEDS ORDERED: methaDONE HCL 10 MG TABLET (FOR DETOX USE ONLY) ONE (09:30)
[2021-09-05] MEDS: FUROSEMIDE 20 MG TABLET (FP) PO SCH (10:12)
[2021-09-05] MEDS: PRENATAL VITAMINS W/ FOLIC ACID TABLET (FP) PO SCH (10:13)
[2021-09-05] MEDS: FERROUS GLUCONATE 324 MG TAB (FP) PO SCH ×2 (10:13→22:20)
[2021-09-05] MEDS: NICOTINE 21 MG/24 HOURS TOPICAL PATCH TD SCH (10:13)
[2021-09-05] MEDS: PANTOPRAZOLE 40 MG TABLET PO SCH ×2 (10:13→22:19)
[2021-09-05] MEDS: GABAPENTIN 300 MG CAPSULE PO SCH ×2 (10:13→22:20)
[2021-09-05] MEDS: QUEtiapine FUMARATE 25 MG TABLET PO SCH (10:13)
[2021-09-05] MEDS: LIDOCAINE 5% TOPICAL PATCH TP SCH (10:13)
[2021-09-05] MEDS: QUEtiapine FUMARATE 50 MG TABLET PO SCH (22:19)
[2021-09-05] MEDS: THIAMINE HCL 100 MG TABLET (FP) PO SCH (22:19)
[2021-09-05] MEDS: MELATONIN 5 MG TABLETS PO SCH (22:20)
[2021-09-05] MEDS: LIDOCAINE PATCH REMOVAL MC SCH (22:21)
[2021-09-06] MEDS: NICOTINE 10 MG CARTRIDGE (INHALER) IH PRN (05:55)
[2021-09-06] MEDS ORDERED: diazePAM 5 MG TABLET PO ONE (06:00)
[2021-09-06 08:46] VITALS: BP 95/62; PULSE 85; TEMP 97.2
[2021-09-06] MEDS ORDERED: methaDONE HCL 10 MG TABLET (FOR DETOX USE ONLY) PO ONE (10:00)
[2021-09-06] MEDS: GABAPENTIN 300 MG CAPSULE PO SCH (10:19)
[2021-09-06] MEDS: QUEtiapine FUMARATE 25 MG TABLET PO SCH (10:19)
[2021-09-06] MEDS: PANTOPRAZOLE 40 MG TABLET PO SCH (10:19)
[2021-09-06] MEDS: PRENATAL VITAMINS W/ FOLIC ACID TABLET (FP) PO SCH (10:19)
[2021-09-06] MEDS: LIDOCAINE 5% TOPICAL PATCH TP SCH (10:54)
[2021-09-06] MEDS: FERROUS GLUCONATE 324 MG TAB (FP) PO SCH (10:54)
[2021-09-06] MEDS: FUROSEMIDE 20 MG TABLET (FP) PO SCH (10:54)
[2021-09-06] MEDS: NICOTINE 21 MG/24 HOURS TOPICAL PATCH TD SCH (10:55)
== END 2021-09-06 10:55 | disposition home or self-care (01) | DRG 773 ==
LOC: YASAS 14:37 → Y3N 16:45
PROVIDERS: ADMIT Allergy & Immunology; ATTEND Allergy & Immunology
PROC: HZ2ZZZZ Detoxification Services for Substance Abuse Treatment (ICD-10-PCS; principal; 2021-09-02)
DX: F11.23 Opioid dependence with withdrawal (principal); F10.230 Alcohol dependence with withdrawal, uncomplicated; F13.20 Sedative, hypnotic or anxiolytic dependence, uncomplicated; F12.20 Cannabis dependence, uncomplicated; F17.210 Nicotine dependence, cigarettes, uncomplicated; F19.282 Other psychoactive substance dependence with psychoactive substance-induced sleep disorder; F19.24 Other psychoactive substance dependence with psychoactive substance-induced mood disorder; F39 Unspecified mood [affective] disorder; D50.0 Iron deficiency anemia secondary to blood loss (chronic); I10 Essential (primary) hypertension; J45.20 Mild intermittent asthma, uncomplicated; K21.9 Gastro-esophageal reflux disease without esophagitis; K70.30 Alcoholic cirrhosis of liver without ascites; K51.00 Ulcerative (chronic) pancolitis without complications; Z86.19 Personal history of other infectious and parasitic diseases; Z88.8 Allergy status to other drugs, medicaments and biological substances
CPT/HCPCS: 36415; 81003; 85027; 86593; 86780; 87086; C9803; J0735; Q0162; U0003; U0005

== ENCOUNTER 2022-01-22 04:55 | Inpatient (IN) | payer OTHER ==
[2022-01-22] MEDS ORDERED: PANTOPRAZOLE SODIUM 40 MG VIAL IVPUSH ONE ×2 (05:34→06:18)
[2022-01-22] MEDS ORDERED: OCTREOTIDE ACETATE 50 MCG/1 ML - 1 ML VIAL IVPUSH ONE (05:34)
[2022-01-22] MEDS ORDERED: SODIUM CHLORIDE 0.9% 500 ML INFUS.BAG IV ONE (05:38)
[2022-01-22] MEDS ORDERED: CEFTRIAXONE 1,000 MG in DEXTROSE 5%-WATER - 50 ML IVPB ONE (05:43)
[2022-01-22] MEDS ORDERED: ONDANSETRON 4 MG/2 ML VIAL IVPUSH ONE (05:50)
[2022-01-22] MEDS ORDERED: PANTOPRAZOLE SODIUM 40 MG VIAL ONE ×2 (06:15→06:18)
[2022-01-22] MEDS ORDERED: THIAMINE HCL 200 MG/2 ML VIAL IVPB ONE (06:16)
[2022-01-22] MEDS ORDERED: ONDANSETRON 4 MG/2 ML VIAL ONE ×2 (06:18→14:12)
[2022-01-22] MEDS ORDERED: OCTREOTIDE ACETATE 200 MCG, OCTREOTIDE ACETATE 1,000 MCG in DEXTROSE 5%-WATER - 496 ML IVPB SCH (06:30)
[2022-01-22 07:11] LABS: INR 1.03 (0.83-1.09); PROTHROMBIN TIME (PATIENT) 11.8 SEC (9.7-13.0)
[2022-01-22 07:14] LABS: ACTIVATED PTT 22.4 SECONDS (25.2-36.5)
[2022-01-22 07:17] LABS: CHLORIDE 88 mmol/L (98-107); SODIUM 133 mmol/L (136-145)
[2022-01-22 07:19] LABS: CALCIUM 8.2 mg/dL (8.5-10.1)
[2022-01-22 07:20] LABS: ALBUMIN 2.3 g/dl (3.4-5.0); CO2 24 mmol/L (21-32); GLUCOSE,RANDOM 126 mg/dL (74-106); LIPASE 316 U/L (73-393)
[2022-01-22 07:21] LABS: MAGNESIUM 2.2 mg/dL (1.8-2.4)
[2022-01-22 07:23] LABS: CREATININE 1.2 mg/dL (0.55-1.3); SGOT/AST 94 U/L (15-37); SGPT/ALT 62 U/L (13-61)
[2022-01-22 07:24] LABS: TOT PROT 6.7 g/dl (6.4-8.2)
[2022-01-22 07:25] LABS: BILIRUBIN,TOTAL 0.6 mg/dL (0.2-1); HEMATOCRIT 27.1 % (32.4-45.2); HEMOGLOBIN 7.8 GM/dL (10.7-15.3); MCH 22.2 pg (25.7-33.7); MCHC 28.8 g/dl (32.0-36.0); MEAN PLT VOLUME 8.5 fl (7.5-11.1); PLATELET COUNT 288 10^3/uL (134-434); RBC 3.52 M/mm3 (3.60-5.2); RDW 23.4 % (11.6-15.6); WHITE BLOOD COUNT 17.5 K/mm3 (4.0-10.0)
[2022-01-22 07:26] LABS: ALK PHOS 195 U/L (45-117)
[2022-01-22 07:27] LABS: ANION GAP 20 MMOL/L (8-16)
[2022-01-22] MEDS ORDERED: MAGNESIUM SULF 50% (8.12 MEQ/2 ML-1 GM VIAL) IVPB ONE (07:27)
[2022-01-22] MEDS ORDERED: POTASSIUM CHLORIDE 20 MEQ PREMIX IVPB 100 ML IVPB ONE (07:27)
[2022-01-22 07:35] LABS: LACTIC ACID 9.6 mmol/L (0.4-2.0)
[2022-01-22] MEDS ORDERED: CEFTRIAXONE 1 GM/50 ML BAG ONE (07:40)
[2022-01-22] MEDS ORDERED: THIAMINE HCL 200 MG/2 ML VIAL ONE (07:40)
[2022-01-22] MEDS ORDERED: LACTATED RINGERS SOLUTION 1,000 ML/1,000 ML INFUS.BAG IV STA (07:44)
[2022-01-22 07:52] LABS: VENOUS O2 SATURATION 84.8 % (70-80); VENOUS PCO2 46.8 mmHg (38-52); VENOUS PH 7.296 (7.310-7.410)
[2022-01-22] MEDS ORDERED: PANTOPRAZOLE SODIUM 80 MG in SODIUM CHLORIDE 100 ML IVPB SCH (08:15)
[2022-01-22] MEDS ORDERED: PANTOPRAZOLE SODIUM 160 MG in SODIUM CHLORIDE 290 ML IVPB SCH (08:30)
[2022-01-22] MEDS: POTASSIUM CHLORIDE 20 MEQ PREMIX IVPB 100 ML IVPB SCH ×3 (08:47→10:54)
[2022-01-22] MEDS ORDERED: DEXTROSE 5%-NORMAL SALINE 1,000 ML IV SCH ×2 (09:45→10:16)
[2022-01-22] MEDS ORDERED: MULTIVIT INJ. ADULT COMBO WITH VIT K 1 COMBO 10 ML VIAL IV SCH (10:00)
[2022-01-22 10:37] LABS: ANISOCYTOSIS 2+; MACROCYTOSIS 1+; PLATELET ESTIMATE NORMAL; TARGET CELLS 1+
[2022-01-22] MEDS: OCTREOTIDE ACETATE 200 MCG, OCTREOTIDE ACETATE 1,000 MCG in DEXTROSE 5%-WATER - 496 ML IVPB SCH (10:55)
[2022-01-22] MEDS: DEXTROSE 5%-NORMAL SALINE 1,000 ML IV SCH (10:56)
[2022-01-22 11:15] LABS: HEMATOCRIT 26.1 % (32.4-45.2); HEMOGLOBIN 7.6 GM/dL (10.7-15.3); MCH 22.5 pg (25.7-33.7); MCHC 29.3 g/dl (32.0-36.0); MEAN PLT VOLUME 8.5 fl (7.5-11.1); PLATELET COUNT 255 10^3/uL (134-434); RDW 23.9 % (11.6-15.6); WHITE BLOOD COUNT 21.1 K/mm3 (4.0-10.0)
[2022-01-22 11:48] LABS: LACTIC ACID 5.8 mmol/L (0.4-2.0)
[2022-01-22 13:03] LABS: ALBUMIN 2.3 g/dl (3.4-5.0); CALCIUM 8.1 mg/dL (8.5-10.1)
[2022-01-22 13:04] LABS: BLOOD UREA NITROGEN 34.2 mg/dL (7-18)
[2022-01-22 13:08] LABS: BILIRUBIN,TOTAL 0.5 mg/dL (0.2-1); TOT PROT 6.4 g/dl (6.4-8.2)
[2022-01-22] MEDS ORDERED: LORazepam 2 MG/ML SDV VIAL IVPUSH ONE (14:16)
[2022-01-22] MEDS: MUPIROCIN 2% TOPICAL OINTMENT FOR DECOLONIZATION NS SCH ×2 (14:28→22:17)
[2022-01-22] MEDS ORDERED: ONDANSETRON 4 MG/2 ML VIAL IVPUSH SCH (14:30)
[2022-01-22 15:08] LABS: ANISOCYTOSIS 2+; MACROCYTOSIS 1+; PLATELET ESTIMATE NORMAL; TARGET CELLS 2+
[2022-01-22] MEDS: ONDANSETRON 4 MG/2 ML VIAL IVPUSH SCH ×2 (16:55→21:44)
[2022-01-22] MEDS: LORazepam 1 MG TABLET PO SCH ×2 (17:29→22:18)
[2022-01-22] MEDS: CHLORHEXIDINE GLUCONATE 4% CLEANSER FOR DECOLONIZATION TP SCH (22:17)
[2022-01-23] MEDS: ONDANSETRON 4 MG/2 ML VIAL IVPUSH SCH ×4 (02:05→20:21)
[2022-01-23] MEDS: LORazepam 1 MG TABLET PO PRN (02:26)
[2022-01-23] MEDS ORDERED: PANTOPRAZOLE SODIUM 160 MG in SODIUM CHLORIDE 290 ML IVPB SCH (04:30)
[2022-01-23] MEDS ORDERED: LORazepam 1 MG TABLET GT SCH (04:54)
[2022-01-23] MEDS: LORazepam 2 MG/ML SDV VIAL IVPUSH SCH ×2 (05:49→11:50)
[2022-01-23 07:32] LABS: MCH 22.8 pg (25.7-33.7); MCHC 29.3 g/dl (32.0-36.0); MEAN CELL VOLUME 77.8 fl (80-96); MEAN PLT VOLUME 8.3 fl (7.5-11.1); PLATELET COUNT 232 10^3/uL (134-434); RBC 2.83 M/mm3 (3.60-5.2); WHITE BLOOD COUNT 24.2 K/mm3 (4.0-10.0)
[2022-01-23 07:33] LABS: INR 1.02 (0.83-1.09); PROTHROMBIN TIME (PATIENT) 11.7 SEC (9.7-13.0)
[2022-01-23 07:37] LABS: HEMOGLOBIN 6.5 GM/dL (10.7-15.3)
[2022-01-23 07:45] LABS: BLOOD UREA NITROGEN 22.3 mg/dL (7-18); CALCIUM 8.1 mg/dL (8.5-10.1)
[2022-01-23 07:46] LABS: MAGNESIUM 2.1 mg/dL (1.8-2.4)
[2022-01-23 07:48] LABS: CREATININE 0.8 mg/dL (0.55-1.3); PHOSPHOROUS 2.5 mg/dL (2.5-4.9)
[2022-01-23 07:49] LABS: TOT PROT 5.6 g/dl (6.4-8.2)
[2022-01-23 07:50] LABS: BILIRUBIN,TOTAL 0.6 mg/dL (0.2-1)
[2022-01-23 08:00] LABS: LACTIC ACID 2.5 mmol/L (0.4-2.0)
[2022-01-23] MEDS ORDERED: MULTIVIT INJ. ADULT COMBO WITH VIT K 1 COMBO 10 ML VIAL IV SCH (10:00)
[2022-01-23] MEDS ORDERED: DEXTROSE 5%-WATER - 50 ML IVPB ONE (10:45)
[2022-01-23] MEDS ORDERED: cefTRIAXone SODIUM 1 GM VIAL ONE (10:45)
[2022-01-23] MEDS: PANTOPRAZOLE SODIUM 40 MG VIAL IVPUSH SCH (10:51)
[2022-01-23] MEDS: MUPIROCIN 2% TOPICAL OINTMENT FOR DECOLONIZATION NS SCH ×2 (10:51→21:13)
[2022-01-23] MEDS: CEFTRIAXONE 1 GM in DEXTROSE 5%-WATER - 50 ML IVPB SCH (10:54)
[2022-01-23 11:05] LABS: ANISOCYTOSIS 2+; MACROCYTOSIS 1+; TARGET CELLS 2+
[2022-01-23] MEDS: DEXTROSE 5%-NORMAL SALINE 1,000 ML IV SCH (13:05)
[2022-01-23] MEDS ORDERED: LORazepam 1 MG TABLET PO ONE ×2 (17:00→23:00)
[2022-01-23 18:45] VITALS: TEMP 98.6
[2022-01-23] MEDS: OCTREOTIDE ACETATE 200 MCG, OCTREOTIDE ACETATE 1,000 MCG in DEXTROSE 5%-WATER - 496 ML IVPB SCH (20:20)
[2022-01-23 20:31] LABS: COCAINE, UR NEGATIVE (NEGATIVE); OPIATES, URI NEGATIVE (NEGATIVE); PHENCYCLIDINE,URINE NEGATIVE (NEGATIVE); URINE BENZODIAZEPINES NEGATIVE (NEGATIVE)
[2022-01-23 20:53] LABS: URINE AMPHETAMINES NEGATIVE (NEGATIVE)
[2022-01-23 20:54] LABS: METHADONE, UR POSITIVE (NEGATIVE); URINE BARBITURATES NEGATIVE (NEGATIVE)
[2022-01-23] MEDS: CHLORHEXIDINE GLUCONATE 4% CLEANSER FOR DECOLONIZATION TP SCH (21:13)
[2022-01-24] MEDS ORDERED: MELATONIN 5 MG TABLETS PO PRN (00:08)
[2022-01-24] MEDS: LORazepam 1 MG TABLET PO PRN ×2 (00:14→14:36)
[2022-01-24] MEDS: ONDANSETRON 4 MG/2 ML VIAL IVPUSH SCH ×3 (01:45→14:20)
[2022-01-24] MEDS: LORazepam 1 MG TABLET PO SCH ×3 (05:46→17:43)
[2022-01-24] MEDS ORDERED: methaDONE HCL 40 MG DISPERSABLE TABLET PO SCH (08:00)
[2022-01-24 08:04] LABS: CALCIUM 7.9 mg/dL (8.5-10.1)
[2022-01-24 08:05] LABS: ALBUMIN 2.2 g/dl (3.4-5.0); BLOOD UREA NITROGEN 9.5 mg/dL (7-18); MAGNESIUM 1.7 mg/dL (1.8-2.4)
[2022-01-24 08:07] LABS: PHOSPHOROUS 2.8 mg/dL (2.5-4.9)
[2022-01-24 08:08] LABS: CREATININE 0.8 mg/dL (0.55-1.3)
[2022-01-24 08:09] LABS: BILIRUBIN,TOTAL 0.5 mg/dL (0.2-1); TOT PROT 5.6 g/dl (6.4-8.2)
[2022-01-24 08:31] LABS: HEMATOCRIT 25.4 % (32.4-45.2); HEMOGLOBIN 7.7 GM/dL (10.7-15.3); MCH 24.5 pg (25.7-33.7); MCHC 30.5 g/dl (32.0-36.0); MEAN CELL VOLUME 80.4 fl (80-96); MEAN PLT VOLUME 8.9 fl (7.5-11.1); PLATELET COUNT 236 10^3/uL (134-434); RBC 3.16 M/mm3 (3.60-5.2); RDW 23.9 % (11.6-15.6)
[2022-01-24 08:33] LABS: WHITE BLOOD COUNT 18.4 K/mm3 (4.0-10.0)
[2022-01-24] MEDS ORDERED: methaDONE HCL 10 MG TABLET ONE (08:43)
[2022-01-24] MEDS ORDERED: methaDONE HCL 40 MG DISPERSABLE TABLET ONE (08:43)
[2022-01-24] MEDS ORDERED: cefTRIAXone SODIUM 1 GM VIAL ONE (08:44)
[2022-01-24] MEDS ORDERED: methaDONE 40 MG, methaDONE 30 MG PO SCH (08:45)
[2022-01-24] MEDS ORDERED: DEXTROSE 5%-WATER - 50 ML IVPB ONE (08:45)
[2022-01-24] MEDS: MUPIROCIN 2% TOPICAL OINTMENT FOR DECOLONIZATION NS SCH (09:01)
[2022-01-24] MEDS: PANTOPRAZOLE SODIUM 40 MG VIAL IVPUSH SCH (09:02)
[2022-01-24] MEDS: CEFTRIAXONE 1 GM in DEXTROSE 5%-WATER - 50 ML IVPB SCH (09:02)
[2022-01-24] MEDS: OCTREOTIDE ACETATE 200 MCG, OCTREOTIDE ACETATE 1,000 MCG in DEXTROSE 5%-WATER - 496 ML IVPB SCH (11:15)
[2022-01-24] MEDS ORDERED: MAGNESIUM 1GM/D5W - 1 GM/100 ML IVPB IVPB ONE (11:15)
[2022-01-24] MEDS: DEXTROSE 5%-NORMAL SALINE 1,000 ML IV SCH (11:29)
[2022-01-24 11:50] LABS: ANISOCYTOSIS 1+; MACROCYTOSIS 0; TARGET CELLS 2+
[2022-01-24 12:29] VITALS: BP 123/102; PULSE 91
[2022-01-24 12:39] LABS: MAGNESIUM 1.8 mg/dL (1.8-2.4)
[2022-01-24] MEDS ORDERED: DEXTROSE 5%-NORMAL SALINE 1,000 ML IV SCH (12:55)
[2022-01-24] MEDS ORDERED: FLUCONAZOLE 100 MG TABLET (UD) PO ONE (13:30)
[2022-01-24 13:47] VITALS: BMI 32.2
[2022-01-25] MEDS ORDERED: LORazepam 0.5 MG TABLET PO PRN
[2022-01-25] MEDS ORDERED: LORazepam 0.5 MG TABLET PO SCH (05:00)
[2022-01-25] MEDS ORDERED: FLUCONAZOLE 100 MG TABLET (UD) PO SCH (10:00)
[2022-01-26] MEDS ORDERED: LORazepam 0.5 MG TABLET PO ONE (05:00)
== END 2022-01-24 18:45 | disposition left against medical advice (07) | DRG 253 ==
LOC: JER 04:55 → JERBED 08:02 → JICU 09:59
PROVIDERS: ADMIT Internal Medicine Pulmonary Disease; ATTEND Internal Medicine
PROC: 0D9670Z Drainage of Stomach with Drainage Device, Via Natural or Artificial Opening (ICD-10-PCS; principal; 2022-01-22)
PROC: 30233N1 Transfusion of Nonautologous Red Blood Cells into Peripheral Vein, Percutaneous Approach (ICD-10-PCS; 2022-01-23)
DX: K92.0 Hematemesis (principal); E87.2 Acidosis; E88.89 Other specified metabolic disorders; B49 Unspecified mycosis; E46 Unspecified protein-calorie malnutrition; F11.20 Opioid dependence, uncomplicated; E87.6 Hypokalemia; F10.239 Alcohol dependence with withdrawal, unspecified; G40.909 Epilepsy, unspecified, not intractable, without status epilepticus; K70.10 Alcoholic hepatitis without ascites; N18.9 Chronic kidney disease, unspecified; R00.0 Tachycardia, unspecified; R74.01 Elevation of levels of liver transaminase levels; K21.9 Gastro-esophageal reflux disease without esophagitis; D72.829 Elevated white blood cell count, unspecified; E83.51 Hypocalcemia; D64.9 Anemia, unspecified
CPT/HCPCS: 36415; 36430; 71045-TC-FY; 74176-TC; 80053; 80307; 82728; 82803; 83540; 83550; 83605; 83690; 83735; 84100; 84703; 85025; 85610; 85730; 86850; 86900; 86901; 86922; 87040; 87106; 93005; 93010; 99291; C9803-CS; P9058; U0003; U0005

== ENCOUNTER 2022-06-13 17:13 | Emergency (ER) | payer OTHER ==
[2022-06-13 17:26] VITALS: BMI 32.0
[2022-06-13] MEDS ORDERED: PANTOPRAZOLE SODIUM 40 MG in SODIUM CHLORIDE 100 ML IVPB ONE (17:30)
[2022-06-13] MEDS ORDERED: CEFTRIAXONE 1 GM in DEXTROSE 5%-WATER - 50 ML IVPB ONE (17:40)
[2022-06-13] MEDS ORDERED: FLUORESCEIN NA 1 EA STRIP OD ONE (17:57)
[2022-06-13] MEDS ORDERED: TETRACAINE 0.5% OPHTH SOLN 2 ML BOTTLE OD ONE (17:57)
[2022-06-13] MEDS ORDERED: CEFTRIAXONE 1 GM/50 ML BAG ONE (17:58)
[2022-06-13] MEDS ORDERED: PANTOPRAZOLE SODIUM 40 MG/100 ML BAG IVPB ONE (17:58)
[2022-06-13] MEDS ORDERED: TETRACAINE 0.5% OPHTH SOLN 2 ML BOTTLE ONE (17:59)
[2022-06-13] MEDS ORDERED: FLUORESCEIN NA 1 EA STRIP ONE (17:59)
[2022-06-13] MEDS ORDERED: OCTREOTIDE ACETATE 50 MCG/1 ML - 1 ML VIAL IVPUSH ONE (18:05)
[2022-06-13] MEDS ORDERED: OCTREOTIDE ACETATE 100 MCG/1 ML ONE (18:20)
[2022-06-13] MEDS ORDERED: OFLOXACIN 0.3% OPHTHALMIC SOLUTION 5 ML BOTTLE OD SCH (18:20)
[2022-06-13 18:56] LABS: MCHC 30.3 g/dl (32.0-36.0); MEAN CELL VOLUME 75.9 fl (80-96); MEAN PLT VOLUME 8.1 fl (7.5-11.1); PLATELET COUNT 489 10^3/uL (134-434); RBC 4.35 M/mm3 (3.60-5.2); RDW 23.7 % (11.6-15.6)
[2022-06-13 19:04] LABS: INR 1.14 (0.83-1.09); PROTHROMBIN TIME (PATIENT) 13.1 SEC (9.7-13.0)
[2022-06-13 19:07] LABS: ACTIVATED PTT 25.7 SECONDS (25.2-36.5)
[2022-06-13 19:21] LABS: ALBUMIN 2.3 g/dl (3.4-5.0); BLOOD UREA NITROGEN 20.2 mg/dL (7-18)
[2022-06-13 19:23] LABS: CREATININE 1.9 mg/dL (0.55-1.3)
[2022-06-13 19:25] LABS: BILIRUBIN,TOTAL 0.3 mg/dL (0.2-1); TOT PROT 7.9 g/dl (6.4-8.2)
[2022-06-13] MEDS ORDERED: SODIUM CHLORIDE 0.9% 500 ML INFUS.BAG IV ONE (19:32)
[2022-06-13 20:21] VITALS: BP 145/104; PULSE 89; RESP 18; TEMP 98
== END 2022-06-13 21:55 | disposition short-term general hospital (02) ==
LOC: JER 17:13
PROC: 3E03329 Introduction of Other Anti-infective into Peripheral Vein, Percutaneous Approach (ICD-10-PCS; principal; 2022-06-13)
PROC: 3E033GC Introduction of Other Therapeutic Substance into Peripheral Vein, Percutaneous Approach (ICD-10-PCS; 2022-06-13)
PROC: 3E033GC Introduction of Other Therapeutic Substance into Peripheral Vein, Percutaneous Approach (ICD-10-PCS; 2022-06-13)
DX: S05.01XA Injury of conjunctiva and corneal abrasion without foreign body, right eye, initial encounter (principal); K92.2 Gastrointestinal hemorrhage, unspecified; W45.8XXA Other foreign body or object entering through skin, initial encounter
CPT/HCPCS: 36415; 70450-TC; 70480-TC; 72125-TC; 80053; 80307; 83605; 83690; 84484; 84703; 85025; 85610; 85730; 86850; 86900; 86901; 87040; 93005; 93010; 99285-25; C9803-CS; U0003; U0005